=== PATIENT | female | born 1970 | race Hispanic/Latino ===

== ENCOUNTER 2018-03-09 09:35 | Day surgery (SDC) | payer OTHER, SELFPAY ==
[2018-03-07 12:09] VITALS: BMI 30.4
[2018-03-09] VITALS (9 sets, daily range): BP systolic 97–130; BP diastolic 35–78; PULSE 66–84; RESP 11–16; TEMP 36.2–36.7; O2SAT 98–100; BMI 30.4
[2018-03-09] MEDS: LACTATED RINGERS 1,000 ML 42 ML IV ×2 (10:38→12:20)
[2018-03-09] MEDS: SCOPOLAMINE 1 PATCH TOP ×2 (10:53→10:54)
[2018-03-09] MEDS: APREPITANT 40 MG CAPSULE PO (10:54)
[2018-03-09] MEDS: CEFAZOLIN 2 GM/100 ML FROZ.PIGGY IV (11:19)
--- NOTE | 2018-03-09 11:20 | P.HP_ITS ---
History of Present Illness Date Patient Seen: 03/09/18 Time Patient Seen: 11:17 Chief complaint: repair LIH incisional hernia [id number] Narrative: Liliana is a micah 47-year-old lady who presents for repair of 2 hernias. I last saw her in May of this past year. She had just had a cholecystectomy because she was having significant epigastric pain. She has now healed from that. She also has a left inguinal hernia and has developed what we think is a hernia at 1 of the port site from her cholecystectomy. She is here today to have those things repaired. She says her left inguinal hernia has gotten progressively more symptomatic over the past 8 or 9 months. She was scheduled to have it repaired September but had to delay repair due to other commitments. Today, she denies any upper respiratory symptoms, she denies nausea or vomiting, she denies any fever. Patient History Medical History Back pain (Acute) Esophagitis (Acute) GERD (gastroesophageal reflux disease) (Acute) Left inguinal hernia (Acute) Overweight (Acute) Postmenopausal (Acute) Urinary incontinence (Acute) Surgical History H/O: (Acute) Status post laparoscopic cholecystectomy (~11/2015) Family & Social History Family History: Reviewed 03/09/18 by Tia Conde MD Social History: household members none Tobacco & Substance use: Smoking Status Never smoker alcohol intake never Substance Use Type does not use Meds Home Medications Medication Instructions Recorded Confirmed Type [MULTIVITAMIN PACKET] PO QDAY #0 05/19/17 06/30/17 History Allergies Allergy/AdvReac Type Severity Reaction Status Date / Time No Known Drug Allergies Allergy Verified 03/09/18 09:56 Review of Systems Review of Systems All systems reviewed & are unremarkable except as noted in HPI and below Exam Vital Signs (past 8 hours): - 03/09/18 09:57 Temperature 97.1 F L Pulse Rate 81 Respiratory Rate 16 Blood Pressure 122/76 Pulse Oximetry 99 Oxygen Delivery Method Room Air Narrative Exam Narrative: Wonderful 47-year-old lady in no obvious distress she is accompanied by her daughter HEENT: Normocephalic and atraumatic, pupils equal round reactive to light accommodation with anicteric sclera. Lungs: Clear to auscultation bilaterally Heart: Regular rate and rhythm Abdomen: Soft, well-healed surgical abdominal incisions. She is tender to palpation in the right upper quadrant trocar incision though I cannot palpate a specific mass in the supine position. In the standing position she has a small mass at the more medial trocar site in the right upper quadrant. She also has a small and spontaneously reducing left inguinal hernia that is easily detected with Valsalva. No other abdominal masses or lesions. She does have a well- healed Pfannenstiel incision as well. Extremities: Warm and well perfused and without edema Assessment & Plan Plan: Assessment/Plan Narrative: Wonderful 47-year-old lady with an incisional hernia at 1 of her trocar sites and a left inguinal hernia that is been there for couple of years and is becoming more symptomatic. We discussed the risks and benefits of repair both these hernias and Liliana has expressed a desire to proceed.
--- NOTE | 2018-03-09 11:35 | SUR.OPER ---
Supine on padded OR bed, head on pillow, arms secured on padded arm boards at <90 degrees abduction, legs uncrossed, safety belt at thigh, tape over blanket over lower legs.
[2018-03-09] MEDS: ACETAMINOPHEN IV 1,000 MG/100 ML VIAL 400 MG IV (11:40)
[2018-03-09] MEDS: BUPIVACAINE 0.5% (PF) VIAL 30 ML INJ (11:43)
[2018-03-09] MEDS: LIDOCAINE 1% W/EPI INJ 20 ML INJ (11:45)
[2018-03-09] MEDS: CEFAZOLIN 1 GM VIAL IV (11:59)
--- NOTE | 2018-03-09 12:20 | PM.OP.1 ---
Operative Date/Time/Diagnoses Date of procedure: 03/09/18 Time of procedure: 12:20 Pre-op diagnosis: Left inguinal hernia Right abdominal incisional hernia Post-op diagnosis: same Procedure & Clinicians Procedure: Left inguinal hernia repair and right abdominal incisional hernia repair Same procedure as scheduled: Yes Indications: Painful enlarging hernias Surgeon: Tia Conde Click Yes if Unassisted: Yes Anesthesia Type: General (Dr. Noonan) Operative Notes Findings: 1. 1/2 to 1 cm opening in the right upper quadrant port site. Palpation of the internal abdominal wall does not reveal any other defects 2. Moderate-sized indirect left inguinal hernia. Closure Type: primary Specimen(s): none sent Implants & Drains: Medium Pro Loop mesh implant Estimated Blood Loss (mL): 5 Procedure in detail: After obtaining informed consent, the patient brought to the operating room and placed in the supine position on the operating table. Following successful induction of general endotracheal anesthesia, appropriate padding of all bony prominences, and placement of appropriate monitors, the abdomen is prepped and draped in standard surgical fashion. A time-out was held per [facility]COAP protocol. We began our procedure by addressing the right upper quadrant incisional hernia. Following infiltration with local anesthetic to create a field block, the existing incision was repeated and extended medially and laterally. This was carried down to the fascia. We identified a 1/2 to 1 cm fascial opening through which extended a small amount of preperitoneal fat. Single index finger was placed through this opening into the abdominal cavity and the abdominal cavity was palpated. No other defects were appreciated. We specifically palpated beneath the other trocar sites. The hernia was then addressed with interrupted 0 Vicryl suture. It was closed directly with interrupted stitches. We now turned our attention to the left inguinal hernia. We started with a left ilioinguinal nerve block. This was completed by infiltrating a mixture of local anesthetic just medial to the anterior superior iliac spine on the left. Once this was done. We identified a convenient site for an incision in the left lower quadrant located between the anterior superior iliac spine and pubic tubercle. This was also injected with local anesthetic. The incision was then created and carried down through the skin and subcutaneous tissue. The fascia of the external oblique aponeurosis was identified. The fascia was then opened in the direction of its fibers and retracted laterally. We identified the round ligament and the ilioinguinal nerve. The ilioinguinal nerve was carefully preserved. The round ligament was divided. We identified a moderate-sized indirect inguinal hernia. No direct component was identified. We dressed the hernia using a medium Pro Loop mesh implant. The plug was dipped in Ancef containing solution and deployed into the defect. This was sewn to the transversalis fascia and the oblique muscle with interrupted 0 Vicryl sutures using air knots. The wound was then irrigated. The patch portion of the plug and Patch combination was then placed in the inguinal canal. It was sewn to the pubic tubercle medially and laterally tucked beneath the external oblique aponeurosis. The wound was checked for hemostasis. The external oblique aponeurosis was closed with interrupted Vicryl sutures and the at the abdominal incision was closed in layers. It was dressed with Dermabond. All sponge, needle, and instrument counts were correct at the conclusion of the case. The patient allowed wake from anesthesia without difficulty and taken to the postanesthesia care unit in good condition. Condition: stable Disposition: PACU Plan for aftercare: 1. Discharge to home 2. Follow up with me in 2 weeks
--- NOTE | 2018-03-09 12:38 | SUR.PHASEI ---
REPORT GIVEN TO LO DELATORRE AND TRANSFERED CARE OF PT TO NANDINI BLANCHARD AT THIS TIME. PT IN STABLE CONDITION, VSS. LAYING IN BED WITH EYES CLOSED, EASILY AROUSABLE TO VOICE.
--- NOTE | 2018-03-09 12:56 | SUR.PHASEI ---
Reported off to Mode BLANCHARD, whom will now assume care for this pt.
--- NOTE | 2018-03-09 13:02 | SUR.PHASEI ---
Assumed care. VS stable. 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 Pt reported her pain was ok.
[2018-03-09] MEDS: ONDANSETRON 4 MG/2 ML INJ IV (13:44)
== END 2018-03-09 14:17 | disposition home or self-care (01) ==
PROVIDERS: PCP Physician Assistant; Visit Provider Surgery
PROC: (CPT 49560; principal; 2018-03-09 11:15)
PROC: (CPT 49560; 2018-03-09 11:15)
DX: K40.90 Unilateral inguinal hernia, without obstruction or gangrene, not specified as recurrent (principal); K43.2 Incisional hernia without obstruction or gangrene
CPT/HCPCS: 49560; 49505; C1781; J0131; J0690; J1100; J1885; J2250; J2405; J2704; J3010; J8501

== ENCOUNTER 2018-05-17 12:20 | Emergency (ER) | payer OTHER, SELFPAY ==
[2018-05-17 12:26] VITALS: BP 132/82; PULSE 90; RESP 15; TEMP 36.8; O2SAT 100; BMI 29.2
--- NOTE | 2018-05-17 12:53 | ED.DIZZY ---
HPI - Dizziness <Sinai Diaz PA-C - Last Filed: 05/17/18 18:49> General Chief Complaint: Dizziness Stated Complaint: DIZZY DOUBLE VISION PAIN BACK OF HEAD Time Seen by Provider: 05/17/18 12:30 Source: patient Mode of arrival: ambulatory Limitations: no limitations History of Present Illness HPI Narrative: This 47-year-old female complains of onset of dizziness, which she describes as a spinning sensation, this morning when she went to get out of bed. This has persisted throughout the day, worse with movement. She states that she also has posterior head pressure. She states that she does have a history of headache and migraine but these tend to occur more around her menstrual cycle. She states that she felt like she had some double vision in both eyes especially earlier when she got up and felt dizzy. She thinks that could be correlated. She states that she does have some nausea, but did drink her smoothie as usual this morning. She denies pain in her neck itself. She denies any fever. She denies any recent upper respiratory or sinus symptoms. No recent travel. She states that she did get some nausea medicine at the walk in clinic which has helped somewhat. She has not had vomiting Related Data Home Medications Medication Instructions Recorded Confirmed [MULTIVITAMIN PACKET] PO QDAY #0 05/19/17 05/17/18 Allergies Allergy/AdvReac Type Severity Reaction Status Date / Time No Known Drug Allergies Allergy Verified 05/17/18 12:26 Review of Systems <Sinai Diaz PA-C - Last Filed: 05/17/18 18:49> Review of Systems ROS Unobtainable: All systems reviewed & are unremarkable except as noted in HPI and below PFSH <Sinai Diaz PA-C - Last Filed: 05/17/18 18:49> Medical History Back pain (Acute) Esophagitis (Acute) GERD (gastroesophageal reflux disease) (Acute) Left inguinal hernia (Acute) Overweight (Acute) Postmenopausal (Acute) Urinary incontinence (Acute) Surgical History H/O: (Acute) Status post laparoscopic cholecystectomy (~11/2015) Social History details: unknown number of children: 3 household members: children education level: college occupational status: employed seatbelt use: always Smoking Status: Never smoker alcohol intake: never substance use type: does not use Type(s) of exercise: other and yoga frequency: 3-4 times per week duration: > 90 minutes/day Social History details: unknown number of children: 3 household members: children education level: college occupational status: employed seatbelt use: always Smoking Status: Never smoker alcohol intake: never substance use type: does not use Type(s) of exercise: other and yoga frequency: 3-4 times per week duration: > 90 minutes/day Exam <Sinai Diaz PA-C - Last Filed: 05/17/18 18:49> Narrative Exam Narrative: GENERAL APPEARANCE: Patient sitting comfortably, appears well HEENT: PERRL, EOMI, normal TMs and oropharynx, no sinus TTP. No nystagmus NECK: Supple, no masses LUNGS: Clear to auscultation bilaterally. HEART: Rate and rhythm regular without murmur, normal S1 and S2, no S3 or S4. ABDOMEN: Soft, NT, ND, NEUROLOGIC: Alert and oriented, normal speech, and coordination. Vertigo elicited with Hallpike maneuver, more with head turn to right side MUSCULOSKELETAL: Full Csp AROM without tenderness, no tenderness over the C-spine or cervical musculature EXTREMITIES: No calf tenderness no edema Initial Vital Signs Initial Vital Signs: Vital Signs Temperature 98.3 F 05/17/18 12:26 Pulse Rate 90 05/17/18 12:26 Respiratory Rate 15 05/17/18 12:26 Blood Pressure 132/82 05/17/18 12:26 Pulse Oximetry 100 05/17/18 12:26 <Cachorro Vitale DO - Last Filed: 05/17/18 20:03> Initial Vital Signs Initial Vital Signs: Vital Signs Temperature 98.3 F 05/17/18 12:26 Pulse Rate 90 05/17/18 12:26 Respiratory Rate 15 05/17/18 12:26 Blood Pressure 132/82 05/17/18 12:26 Pulse Oximetry 100 05/17/18 12:26 Course <Sinai Diaz PA-C - Last Filed: 05/17/18 18:49> Additional Information: Patient has clear positional vertigo and is feeling significantly improved after meclizine. No acute neurologic abnormality. She related that double vision seemed to occur with the vertigo but none on exam today. Her nausea appear to be associated with the vertigo as she seemed to have more response to meclizine than she did to Zofran. She will continue the meclizine as needed, will follow up with her PCP this week. She was tolerating saltines and water without problems prior to discharge, agreed to return if any acutely worsening symptoms Orders Ordered: Discontinued Medications Ketorolac Tromethamine (Toradol) 60 mg IM NOW ONE Stop: 05/17/18 13:17 Last Admin: 05/17/18 13:32 Dose: 60 mg Meclizine HCl (Antivert) 25 mg PO NOW ONE Stop: 05/17/18 13:17 Last Admin: 05/17/18 13:33 Dose: 25 mg Vital Signs - 8 hr 05/17/18 12:26 05/17/18 14:36 Temperature 98.3 F Pulse Rate 90 79 Respiratory Rate 15 16 Blood Pressure 132/82 Blood Pressure [Left Arm] 119/80 Pulse Oximetry 100 99 <Cachorro Vitale DO - Last Filed: 05/17/18 20:03> Orders Ordered: Discontinued Medications Ketorolac Tromethamine (Toradol) 60 mg IM NOW ONE Stop: 05/17/18 13:17 Last Admin: 05/17/18 13:32 Dose: 60 mg Meclizine HCl (Antivert) 25 mg PO NOW ONE Stop: 05/17/18 13:17 Last Admin: 05/17/18 13:33 Dose: 25 mg Vital Signs - 8 hr 05/17/18 12:26 05/17/18 14:36 Temperature 98.3 F Pulse Rate 90 79 Respiratory Rate 15 16 Blood Pressure 132/82 Blood Pressure [Left Arm] 119/80 Pulse Oximetry 100 99 MDM - Dizziness <Sinai Diaz PA-C - Last Filed: 05/17/18 18:49> Lab Data Point of Care Testing Test Results Negative Urine Dip Bedside Urine Glucose Negative Bedside Urine Bilirubin - Negative Bedside Urine Ketone - Negative Urine Specific [place] 1.015 Bedside Urine Occult Blood - Negative Bedside Urine pH 6.0 Bedside Urine Protein - Negative Bedside Urine Urobilinogen - Negative Bedside Urine Nitrite - Negative Bedside Urine Leukocytes - Negative Esterase <Cachorro Vitale DO - Last Filed: 05/17/18 20:03> Lab Data Point of Care Testing Test Results Negative Urine Dip Bedside Urine Glucose Negative Bedside Urine Bilirubin - Negative Bedside Urine Ketone - Negative Urine Specific [place] 1.015 Bedside Urine Occult Blood - Negative Bedside Urine pH 6.0 Bedside Urine Protein - Negative Bedside Urine Urobilinogen - Negative Bedside Urine Nitrite - Negative Bedside Urine Leukocytes - Negative Esterase Discharge Plan Departure Patient Disposition: Home Clinical Impression: Benign paroxysmal positional vertigo Qualifiers: Laterality: unspecified laterality Qualified Code(s): H81.10 - Benign paroxysmal vertigo, unspecified ear Headache Qualifiers: Headache type: unspecified Headache chronicity pattern: acute headache Intractability: not intractable Qualified Code(s): R51 - Headache Discharge Date/Time: 05/17/18 15:02 Interventions: ED Discharge Assessment Last Done: 05/17/18 15:01 Instructions: DI for Vertigo Activity Restrictions/Additional Instructions: Please return as we talked about if you have acutely worsening symptoms again. Otherwise, please follow-up with your PCP in a couple of days to see whether you are improving as expected or whether you may need further testing or treatment, such as physical therapy. Please hot die picker some [id number] meclizine and you can take 1-2 tablets every 6 hr as needed for the dizziness/vertigo along with your nausea. Remember that this can make you sleepy and you should not drive while taking this or until your vertigo is better. Please continue drinking plenty of clear fluids and eat a little bit of bland food every hour or 2 to help with your nausea. Since your headache is better now, I suspect it was related to this the vertigo and not having much fluid or food in your system. You can take [id number] ibuprofen or Aleve for that if you needed. Prescriptions: No Action [MULTIVITAMIN PACKET] PO QDAY Qty: 0 RF: 0 Referrals: Shannan Varma PA-C [Primary Care Provider] - Stand Alone Forms: Work Release Note <Cachorro Vitale DO - Last Filed: 05/17/18 20:03> Cosign ED Attending Noris Attestation: I was immediately available in the department for consultation. Documentation has been reviewed. I agree with assessment and plan.
[2018-05-17] MEDS: KETOROLAC 60 MG/2 ML VIAL IM (13:32)
[2018-05-17] MEDS: MECLIZINE HCL 12.5 MG TABLET 25 MG PO (13:33)
[2018-05-17 14:36] VITALS: BP 119/80; PULSE 79; RESP 16; O2SAT 99
== END 2018-05-17 15:02 | disposition home or self-care (01) ==
PROVIDERS: Emergency Provider Internal Medicine; PCP Physician Assistant
DX: H81.10 Benign paroxysmal vertigo, unspecified ear (principal); R51 Headache
CPT/HCPCS: 81003; 81025; 99283; 99284; J1885

== ENCOUNTER 2018-08-21 09:32 | Emergency (ER) | payer OTHER, SELFPAY ==
[2018-08-21 09:37] VITALS: BP 124/65; PULSE 65; RESP 14; TEMP 37; O2SAT 100; BMI 29.3
--- NOTE | 2018-08-21 09:49 | PC.NURSE ---
pt has swelling of face,around eyes and erythema on face/neck. Pt swallowing without difficulty and is not in resp distres
[2018-08-21] MEDS: diphenhydrAMINE 25 MG TABLET PO (11:00)
[2018-08-21] MEDS: predniSONE 20 MG TABLET 60 MG PO (11:00)
[2018-08-21 11:14] VITALS: BP 110/85; PULSE 64; RESP 15; O2SAT 100
--- NOTE | 2018-08-21 11:20 | ED.ALLEREA ---
HPI - Allergic Reaction General Chief complaint: Allergic Reaction Stated complaint: Face swollen Time Seen by Provider: 08/21/18 09:57 Source: patient Mode of arrival: ambulatory Limitations: no limitations History of Present Illness HPI narrative: Patient is sent to the emergency department from urgent care after presenting with facial swelling and burning this morning. Patient states that she noticed it around 6:37 a.m. when she woke up from sleep. She states she ate shrimp last night and used a vitamin E oil on her face before bed, but both of these things are not unusual for her and she has never had a reaction before. Patient denies any symptoms anywhere else on her body. No rash. No itching. No throat or tongue swelling. No difficulty swallowing or breathing. Patient states that she is otherwise healthy. No new soaps lotions or medications. No other suspect foods. The patient states she bought some Benadryl at the store, but did not take it. No other complaints at this time. The patient states her symptoms have not gotten better or worse over the course of the day. Related Data Home Medications Medication Instructions Recorded Confirmed [MULTIVITAMIN PACKET] PO QDAY #0 05/19/17 05/19/18 Previous Rx's Medication Instructions Recorded prednisone 60 mg PO DAILY #9 tab 08/21/18 Allergies Allergy/AdvReac Type Severity Reaction Status Date / Time No Known Drug Allergies Allergy Verified 08/21/18 09:37 Review of Systems Constitutional Denies chills, Denies fever(s), Denies lethargy and Denies weakness Eyes Denies change in vision, Denies eye discharge, Denies irritation and Denies loss of vision ENT Ears, Nose, Mouth, and Throat: Denies change in voice, Denies neck pain and Denies sore throat Comments: Facial swelling Cardiovascular Denies chest pain, Denies irregular heart rhythm, Denies lightheadedness, Denies palpitations, Denies dyspnea, Denies dyspnea on exertion and Denies orthopnea Respiratory Denies cough, Denies dyspnea, Denies dyspnea on exertion and Denies wheezing Gastrointestinal Gastrointestinal: Denies abdominal pain, Denies change in bowel habits, Denies diarrhea, Denies nausea and Denies vomiting Genitourinary Denies hematuria, Denies flank pain, Denies urinary incontinence and Denies urinary urgency Musculoskeletal Denies neck pain Integumentary/Breasts Denies pruritus, Denies erythema, Denies rash and Denies wounds Neurologic Denies confusion, Denies loss of vision and Denies weakness Psychiatric Denies anxiety, Denies confusion, Denies depression, Denies homicidal ideation and Denies suicidal ideation Endocrine Denies palpitations Hematologic/Lymphatic Denies easy bruising Allergic/Immunologic Denies wheezing [facility] Medical History Back pain (Acute) Esophagitis (Acute) GERD (gastroesophageal reflux disease) (Acute) Left inguinal hernia (Acute) Overweight (Acute) Postmenopausal (Acute) Urinary incontinence (Acute) Surgical History H/O: (Acute) Status post laparoscopic cholecystectomy (~11/2015) Social History details: unknown number of children: 3 household members: children education level: college occupational status: employed seatbelt use: always Smoking Status: Never smoker alcohol intake: never substance use type: does not use Type(s) of exercise: other and yoga frequency: 3-4 times per week duration: > 90 minutes/day Social History details: unknown number of children: 3 household members: children education level: college occupational status: employed seatbelt use: always Smoking Status: Never smoker alcohol intake: never substance use type: does not use Type(s) of exercise: other and yoga frequency: 3-4 times per week duration: > 90 minutes/day Exam Narrative Exam Narrative: Patient has mild facial edema which is symmetrically distributed. Initial Vital Signs Initial Vital Signs: Vital Signs Temperature 98.6 F 08/21/18 09:37 Pulse Rate 65 08/21/18 09:37 Respiratory Rate 14 08/21/18 09:37 Blood Pressure 124/65 08/21/18 09:37 Pulse Oximetry 100 08/21/18 09:37 Const General: cooperative and well developed Nutritional Appearance: well nourished Orientation: alert, awake, oriented x3 and not confused HENMT Head: normocephalic and atraumatic Ears: external ears normal Nose: external nose normal and No nasal discharge Face and sinus: sinuses nontender, face symmetric, no sinus tenderness and No dry mucous membranes Mouth: oral mucosae normal and moist mucous membranes Teeth and gingiva: dentition normal Throat: tonsils normal and uvula midline Eyes General: appearance normal, both eyes and all related structures Eyelids: eyelids normal Conjunctivae: conjunctivae normal Sclera: sclerae normal Pupils: PERRL EOM: EOM intact bilaterally Neck Neck: normal visual inspection, trachea midline, No lymphadenopathy, No midline deformity and No JVD Lymphatic: No lymphedema Chest Chest: normal inspection of the chest Resp Effort & Inspection: normal respiratory effort, able to speak in complete sentences, no respiratory distress and no use of accessory muscles Auscultation: clear to auscultation bilaterally, no rales, no rhonchi and no wheezes Cardio Rate: regular rate Rhythm: regular rhythm Heart Sounds: no click, no gallops, no murmurs and no rubs Pulses: normal peripheral pulses GI Inspection: non-distended Palpation: soft, no hepatosplenomegaly, No guarding, No pulsatile mass and No tender Auscultation: normal bowel sounds Back/Spine/Pelvis Back: No CVA tenderness Cervical Spine: cervical ROM normal and No pain with cervical ROM Thoracic/Lumbar Spine: thoracic and lumbar spine normal to inspection Skin General: no rashes or lesions noted, No jaundice and No petechiae Neuro General: alert, oriented x3, gait normal and no focal motor deficits Speech: speech normal Extrem General: full ROM, no clubbing, cyanosis or edema, no pedal edema and no calf tenderness Psych Appearance: well kempt Mental Status: mental status grossly normal Attitude: cooperative Thought Content: normal and suicidality Judgment: judgment good Course Course Narrative: Patient had no evidence of airway compromise or impending airway compromise. She was treated with Benadryl and prednisone in the emergency department. We have discussed home management of the symptoms, as well as avoidance of potential triggers. We have also discussed that the patient may keep a journal of circumstances and exposures surrounding her reaction so that if this ever happens again, she may begin to look for patterns and identify what may have caused this. We have discussed that if the patient begins to feel tightness or swelling in her throat, that she should return to the emergency department immediately. Orders Ordered: Discontinued Medications Diphenhydramine HCl (Benadryl) 25 mg PO NOW ONE Stop: 08/21/18 10:54 Last Admin: 08/21/18 11:00 Dose: 25 mg Prednisone (Deltasone) 60 mg PO NOW ONE Stop: 08/21/18 10:54 Last Admin: 08/21/18 11:00 Dose: 60 mg Vital Signs - 8 hr 08/21/18 09:37 08/21/18 11:14 Temperature 98.6 F Pulse Rate 65 64 Respiratory Rate 14 15 Blood Pressure 124/65 Blood Pressure [Left Arm] 110/85 Pulse Oximetry 100 100 MDM - Allergic Reaction Medical Records Attestation: I reviewed the patient's medical records. Discharge Plan Departure Patient Disposition: Home Clinical Impression: Allergic reaction Qualifiers: Encounter type: initial encounter Qualified Code(s): T78.40XA - Allergy, unspecified, initial encounter Discharge Date/Time: 08/21/18 11:22 Instructions: DI for General Allergic Reactions Activity Restrictions/Additional Instructions: It is not clear at this time you have reacted to. Please keep a mental or written note of what you are exposed to and the circumstances surrounding this reaction, and if it happens again, you will be able to potentially identify what is causing the reaction, by looking for patterns. You may take Benadryl 25-50 mg every 6 hours, as needed for allergic reaction, until the symptoms resolve. Please also take the prednisone, as prescribed, as needed for the reaction. Your prescription has been sent to [facility] in [place]. Prescriptions: New prednisone 20 mg tablet 60 mg PO DAILY Qty: 9 RF: 0 No Action [MULTIVITAMIN PACKET] PO QDAY Qty: 0 RF: 0 Referrals: Shannan Varma PA-C [Primary Care Provider] -
== END 2018-08-21 11:22 | disposition home or self-care (01) ==
PROVIDERS: Emergency Provider Emergency Medicine; PCP Physician Assistant
DX: T78.40XA Allergy, unspecified, initial encounter (principal)
CPT/HCPCS: 99282; 99283

== ENCOUNTER → 2019-01-24 12:02 | Outpatient (CLI) | payer OTHER, SELFPAY ==
[2019-01-24 12:36] LABS: Add Manual Diff / Slide Review NO; Basophils Absolute Auto 100 /uL (0-100); Eosinophils Absolute Auto 100 /uL (0-450); Eosinophils Percent Auto 1.2 % (2-4); Hematocrit 35.3 % (36-46); Hemoglobin 11.6 g/dL (12.0-16.0); Lymphocytes Absolute Auto 2300 /uL (1100-4500); Lymphocytes Percent Auto 34.5 % (25-40); Mean Corpuscular Hemoglobin 26.9 PG (26-34); Mean Corpuscular Volume 81.4 fL (80-100); Monocytes Absolute Auto 500 /uL (0-900); Monocytes Percent Auto 7.7 % (3-14); Neutrophils Absolute Auto 3800 /uL (1500-7000); Neutrophils Percent Auto 55.6 % (50-75); Platelet Count 212 X10^3/uL (150-400); Red Blood Cell Count 4.33 X10^6/uL (4.0-5.2); Red Cell Distribution Width 15.2 % (11.6-14.8); White Blood Cell Count 6.8 X10^3/uL (4.5-11.0)
[2019-01-24 14:20] LABS: HEMOLYSIS < 15 (0-50); Iron 31 ug/dL (37-170)
[2019-01-24 14:22] LABS: Alanine Aminotransferase 6 IU/L (<35); Albumin 4.1 g/dL (3.5-5.0); Albumin Globulin Ratio 1.5 (1.0-2.8); Alkaline Phosphatase 71 U/L (38-126); Aspartate Aminotransferase 21 IU/L (14-36); BUN Creatinine Ratio 24.3 (6-22); Bilirubin Total 0.5 mg/dL (0.2-1.3); Blood Urea Nitrogen 17 mg/dL (7-17); Calcium 9.1 mg/dL (8.4-10.2); Carbon Dioxide 21 mmol/L (22-32); Chloride 109 mmol/L (98-107); Cholesterol 190 mg/dL (140-199); Estimated Glomerular Filt Rate > 60.0 mL/min (>60); Globulin 2.8 g/dL (1.7-4.1); Glucose 104 mg/dL (70-100); HDL Cholesterol 60 mg/dL (40-60); HEMOLYSIS < 15 (0-50); LDL Cholesterol Calculated 113 mg/dL (<100); Potassium 4.2 mmol/L (3.4-5.1); Sodium 139 mmol/L (137-145); Total Protein 6.9 g/dL (6.3-8.2); Triglycerides 83 mg/dL (35-150)
[2019-01-24 14:31] LABS: Percent Iron Saturation 8 % (15-50); Total Iron Binding Capacity 406 ug/dL (265-497); Transferrin 333 mg/dL (206-381)
[2019-01-24 14:56] LABS: Ferritin 5.2 ng/mL (6.27-137)
[2019-01-24 15:10] LABS: Vitamin B12 610 pg/mL (239-931)
== END ==
PROVIDERS: PCP Physician Assistant; Visit Provider Physician Assistant
DX: Z13.220 Encounter for screening for lipoid disorders (principal); Z13.6 Encounter for screening for cardiovascular disorders; D50.9 Iron deficiency anemia, unspecified; R00.0 Tachycardia, unspecified; R51 Headache; R53.83 Other fatigue
CPT/HCPCS: 36415; 80053; 80061; 82607; 82728; 83540; 83550; 84443; 85025

== ENCOUNTER → 2019-08-18 08:33 | Outpatient (CLI) | payer OTHER, SELFPAY ==
[2019-08-18 10:18] LABS: Hemoglobin 12.5 g/dL (12.0-16.0)
[2019-08-18 11:03] LABS: HEMOLYSIS < 15 (0-50); Iron 85 ug/dL (37-170)
[2019-08-18 11:15] LABS: Percent Iron Saturation 20 % (15-50); Total Iron Binding Capacity 419 ug/dL (265-497); Transferrin 327 mg/dL (206-381)
[2019-08-18 11:32] LABS: Ferritin 6 ng/mL (6-137)
== END ==
PROVIDERS: PCP Physician Assistant; Referring Provider Physician Assistant; Visit Provider Physician Assistant
DX: D50.9 Iron deficiency anemia, unspecified (principal)
CPT/HCPCS: 36415; 82728; 83540; 83550; 85014; 85018

== ENCOUNTER → 2019-10-09 09:33 | Outpatient (CLI) | payer OTHER, SELFPAY ==
--- NOTE | 2019-10-09 09:36 | DI.RAD.S_ITS ---
PROCEDURE: XR CHEST 2V INDICATIONS: recent sob symptom TECHNIQUE: 2 views of the chest were acquired. COMPARISON: None. FINDINGS: Surgical changes and devices: None. Lungs and pleura: A presumed 6 mm high density calcified granuloma projecting in the left upper lobe. Long-term stability could be confirmed with follow-up chest radiographs if clinically required. No pleural effusions or pneumothorax. Mediastinum: Mediastinal contours are normal. Heart size is normal. Bones and chest wall: No suspicious bony abnormalities. Soft tissues appear unremarkable. IMPRESSION: No acute disease Dictated by: Tylor Merida M.D. on 10/09/2019 at 11:25 Approved by: Tylor Merida M.D. on 10/09/2019 at 11:30
[2019-10-09 10:49] LABS: Cholesterol 207 mg/dL (140-199); HDL Cholesterol 67 mg/dL (40-60); LDL Cholesterol Calculated 123 mg/dL (<100); Triglycerides 85 mg/dL (35-150)
== END ==
PROVIDERS: PCP Registered Nurse; Referring Provider Registered Nurse; Visit Provider Registered Nurse
DX: E78.5 Hyperlipidemia, unspecified (principal); R06.02 Shortness of breath
CPT/HCPCS: 36415; 71046; 80061

== ENCOUNTER → 2019-10-26 10:02 | Outpatient (CLI) | payer OTHER, SELFPAY ==
[2019-10-26 10:52] LABS: Alanine Aminotransferase 9 IU/L (<35); Albumin 4.1 g/dL (3.5-5.0); Albumin Globulin Ratio 1.4 (1.0-2.8); Alkaline Phosphatase 67 U/L (38-126); Aspartate Aminotransferase 22 IU/L (14-36); BUN Creatinine Ratio 16.7 (6-22); Bilirubin Total 0.6 mg/dL (0.2-1.3); Blood Urea Nitrogen 11 mg/dL (7-17); Calcium 8.9 mg/dL (8.4-10.2); Carbon Dioxide 22 mmol/L (22-32); Chloride 107 mmol/L (98-107); Estimated Glomerular Filt Rate > 60.0 mL/min (>60); Glucose 98 mg/dL (70-100); HEMOLYSIS < 15 (0-50); Potassium 4.5 mmol/L (3.4-5.1); Sodium 137 mmol/L (137-145); Total Protein 7.1 g/dL (6.3-8.2)
== END ==
PROVIDERS: PCP Registered Nurse; Referring Provider Registered Nurse; Visit Provider Registered Nurse
DX: E66.3 Overweight (principal); E78.5 Hyperlipidemia, unspecified
CPT/HCPCS: 36415; 80053

== ENCOUNTER → 2019-10-27 15:32 | Outpatient (CLI) | payer OTHER, SELFPAY ==
[2019-10-28 15:09] LABS: COVID19 Sendout Not Detected (Not Detected)
== END ==
PROVIDERS: PCP Registered Nurse; Visit Provider Physician Assistant
DX: R05 Cough (principal)
CPT/HCPCS: 87635

== ENCOUNTER → 2019-11-05 14:33 | Outpatient (CLI) | payer OTHER, SELFPAY ==
[2019-11-10 13:50] LABS: COVID19 Sendout NOT DETECTED
== END ==
PROVIDERS: PCP Registered Nurse; Visit Provider Physician Assistant
DX: J02.9 Acute pharyngitis, unspecified (principal); R05 Cough
CPT/HCPCS: 87635

== ENCOUNTER → 2019-11-10 17:15 | Outpatient (CLI) | payer OTHER, SELFPAY ==
--- NOTE | 2019-11-10 17:19 | DI.RAD.S_ITS ---
PROCEDURE: XR CHEST 2V INDICATIONS: cough TECHNIQUE: 2 views of the chest were acquired. COMPARISON: [facility], CR, XR CHEST 2V, 10/09/2019, 9:03. FINDINGS: Surgical changes and devices: None. Lungs and pleura: Calcified rounded granuloma at the left lung apex. Lungs are otherwise clear. No pleural effusions or pneumothorax. Mediastinum: Mediastinal contours are normal. Heart size is normal. Bones and chest wall: No suspicious bony abnormalities. Soft tissues appear unremarkable. IMPRESSION: 1. No acute cardiopulmonary disease. 2. Chronic left upper lobe granuloma. Dictated by: Raegan Waite M.D. on 11/10/2019 at 22:35 Approved by: Raegan Waite M.D. on 11/10/2019 at 22:36
== END ==
PROVIDERS: PCP Registered Nurse; Referring Provider Registered Nurse; Visit Provider Registered Nurse
DX: R05 Cough (principal); J84.10 Pulmonary fibrosis, unspecified
CPT/HCPCS: 71046

== ENCOUNTER → 2020-09-13 16:10 | Outpatient (CLI) | payer OTHER, SELFPAY ==
--- NOTE | 2020-09-13 16:11 | DI.MRI.S_ITS ---
PROCEDURE: MR ELBOW LT W CON INDICATIONS: left elbow pain TECHNIQUE: Noncontrast coronal proton density fast spin echo and T2 fast spin echo with fat saturation, axial and sagittal T1 spin echo and T2 fast spin echo with fat saturation through the elbow. COMPARISON: None. FINDINGS: Image quality: Excellent. Lateral structures: The lateral ulnar collateral ligament and radial collateral ligament both appear intact. There is low-grade partial intrasubstance tearing of the common extensor tendon at the origin superimposed on mild tendinosis. Medial structures: The ulnar collateral ligament appears intact. The overlying common flexor tendon appears normal. The ulnar nerve appears mildly increased in signal intensity but normal in thickness, which is nonspecific and can be seen in asymptomatic individuals. A small accessory anconeus epitrochlearis is seen without significant compression of the ulnar nerve. Anterior structures: The biceps and brachialis tendons both appear intact as they insert onto the proximal radius and ulna, respectively. No bicipitoradial bursal fluid. The median and radial neurovascular bundles appear normal; no focal muscle atrophy to suggest nerve impingement. Posterior structures: The conjoint triceps tendon from the long and lateral heads appears intact. The medial head of the triceps tendon also appears normal, with direct muscle insertion onto the olecranon. No olecranon bursal fluid. Subcutaneous soft tissue thickening is seen over the olecranon. Bone and cartilage: No bone marrow contusions or fractures. No osteochondral injuries. IMPRESSION: Low-grade partial intrasubstance tearing of the common extensor tendon at the origin superimposed on mild tendinosis. Dictated by: Daren Gamboa M.D. on 09/13/2020 at 17:07 Approved by: Daren Gamboa M.D. on 09/13/2020 at 17:13
== END ==
PROVIDERS: PCP Registered Nurse; Referring Provider Registered Nurse; Visit Provider Registered Nurse
DX: M25.522 Pain in left elbow (principal); S56.512A Strain of other extensor muscle, fascia and tendon at forearm level, left arm, initial encounter
CPT/HCPCS: 73221

== ENCOUNTER → 2020-10-24 10:53 | Outpatient (CLI) | payer OTHER, SELFPAY ==
--- NOTE | 2020-10-24 | DI.MG.S_ITS ---
BILATERAL DIGITAL SCREENING MAMMOGRAM 3D/2D WITH CAD: 10/24/2020 CLINICAL: Routine screening. Family history of breast cancer. Comparison is made to exams dated: 04/02/2017 mammogram, 11/08/2015 ultrasound, and 11/08/2015 mammogram - [facility]. There are scattered fibroglandular elements in both breasts. Current study was also evaluated with a Computer Aided Detection (CAD) system. No significant masses, calcifications, or other findings are seen in either breast. There has been no significant interval change. IMPRESSION: NEGATIVE There is no mammographic evidence of malignancy. A 1 year screening mammogram is recommended. This exam was interpreted at Station ID: [id number]. NOTE: For mammograms, a report in lay terms will be sent to the patient. Approximately 15% of breast malignancies will not be visualized mammographically. In the management of a palpable breast mass, a negative mammogram must not discourage biopsy of a clinically suspicious lesion. Electronically Signed By: Dread miranda/ida:10/29/2020 16:59:00 letter sent: Normal Exam ACR BI-RADS Category 1: Negative 3341F
[2020-10-24 12:11] LABS: Add Manual Diff / Slide Review NO; Basophils Absolute Auto 100 /uL (0-100); Basophils Percent Auto 1.1 % (0-2); Eosinophils Absolute Auto 100 /uL (0-450); Eosinophils Percent Auto 1.5 % (2-4); Hematocrit 41.7 % (36-46); Hemoglobin 13.7 g/dL (12.0-16.0); Lymphocytes Absolute Auto 2700 /uL (1100-4500); Lymphocytes Percent Auto 36.7 % (25-40); Mean Corpuscular HGB Conc 32.8 % (30-36); Mean Corpuscular Hemoglobin 29.5 PG (26-34); Mean Corpuscular Volume 90.1 fL (80-100); Monocytes Absolute Auto 500 /uL (0-900); Monocytes Percent Auto 6.9 % (3-14); Neutrophils Absolute Auto 3900 /uL (1500-7000); Neutrophils Percent Auto 53.8 % (50-75); Platelet Count 246 X10^3/uL (150-400); Red Blood Cell Count 4.63 X10^6/uL (4.0-5.2); Red Cell Distribution Width 13.4 % (11.6-14.8); White Blood Cell Count 7.3 X10^3/uL (4.5-11.0)
[2020-10-24 13:22] LABS: Alanine Aminotransferase 9 IU/L (<35); Albumin 4.2 g/dL (3.5-5.0); Albumin Globulin Ratio 1.4 (1.0-2.8); Alkaline Phosphatase 77 U/L (38-126); Aspartate Aminotransferase 25 IU/L (14-36); BUN Creatinine Ratio 17.2 (6-22); Bilirubin Total 0.6 mg/dL (0.2-1.3); Blood Urea Nitrogen 11 mg/dL (7-17); Calcium 9.4 mg/dL (8.4-10.2); Carbon Dioxide 21 mmol/L (22-32); Chloride 108 mmol/L (98-107); Cholesterol 206 mg/dL (140-199); Estimated Glomerular Filt Rate > 60.0 mL/min (>60); Globulin 2.9 g/dL (1.7-4.1); Glucose 98 mg/dL (70-100); HDL Cholesterol 61 mg/dL (40-60); HEMOLYSIS < 15 (0-50); LDL Cholesterol Calculated 119 mg/dL (<100); Potassium 4.4 mmol/L (3.4-5.1); Sodium 138 mmol/L (137-145); Total Protein 7.1 g/dL (6.3-8.2); Triglycerides 130 mg/dL (35-150)
== END ==
PROVIDERS: PCP Registered Nurse; Referring Provider Registered Nurse; Visit Provider Registered Nurse
DX: Z12.31 Encounter for screening mammogram for malignant neoplasm of breast (principal); Z80.3 Family history of malignant neoplasm of breast; D50.9 Iron deficiency anemia, unspecified; R53.83 Other fatigue; E78.5 Hyperlipidemia, unspecified
CPT/HCPCS: 36415; 77063; 77067; 80053; 80061; 85025

== ENCOUNTER → 2020-10-28 13:26 | Outpatient (CLI) | payer OTHER, SELFPAY ==
[2020-10-28 14:16] LABS: COVID19 -Nasal RAPID Negative (Negative)
== END ==
PROVIDERS: PCP Registered Nurse; Visit Provider Physician Assistant
DX: Z20.822 Contact with and (suspected) exposure to COVID-19 (principal)
CPT/HCPCS: 87635

== ENCOUNTER → 2021-01-06 11:58 | Outpatient (CLI) | payer OTHER, SELFPAY ==
[2021-01-06 15:43] LABS: COVID19 -Nasal RAPID Negative (Negative)
== END ==
PROVIDERS: PCP Registered Nurse; Visit Provider Physician Assistant
DX: Z20.822 Contact with and (suspected) exposure to COVID-19 (principal)
CPT/HCPCS: 87635

== ENCOUNTER → 2022-03-07 10:05 | Outpatient (CLI) | payer OTHER, SELFPAY ==
--- NOTE | 2022-03-07 | DI.MG.S_ITS ---
BILATERAL DIGITAL SCREENING MAMMOGRAM 3D/2D WITH CAD: 03/07/2022 CLINICAL: Routine screening. Family history of breast cancer. Comparison is made to exams dated: 10/24/2020 mammogram, 04/02/2017 mammogram, 11/08/2015 ultrasound, and 11/08/2015 mammogram - [facility]. There are scattered areas of fibroglandular density in both breasts (category b / 25%-50% glandular tissue). Current study was also evaluated with a Computer Aided Detection (CAD) system. No significant masses, calcifications, or other findings are seen in either breast. There has been no significant interval change. IMPRESSION: NEGATIVE There is no mammographic evidence of malignancy. A 1 year screening mammogram is recommended. Based on the Tyrer Cuzick model (a risk assessment model) the patient's lifetime risk is 9.1% and her 10 year risk is 2.1%. According to the ACR, ACS, and NCCN guidelines, an annual breast MRI exam along with mammogram is recommended if the patient's lifetime risk is 20% or greater. This exam was interpreted at Station ID: [id number]. NOTE: For mammograms, a report in lay terms will be sent to the patient. Approximately 15% of breast malignancies will not be visualized mammographically. In the management of a palpable breast mass, a negative mammogram must not discourage biopsy of a clinically suspicious lesion. Electronically Signed By: Kulwant ayala/ida:03/09/2022 08:17:46 letter sent: Normal Exam ACR BI-RADS Category 1: Negative 3341F
== END ==
PROVIDERS: Referring Provider Physician Assistant; Visit Provider Physician Assistant
DX: Z12.31 Encounter for screening mammogram for malignant neoplasm of breast (principal); Z80.3 Family history of malignant neoplasm of breast
CPT/HCPCS: 77063; 77067

== ENCOUNTER → 2022-05-18 12:34 | Outpatient (CLI) | payer OTHER, SELFPAY ==
[2022-05-18 14:37] LABS: Urine Chlamydia NOT DETECTED; Urine N gonorrhoeae NOT DETECTED
== END ==
PROVIDERS: Visit Provider Physician Assistant
DX: N89.8 Other specified noninflammatory disorders of vagina (principal); Z11.3 Encounter for screening for infections with a predominantly sexual mode of transmission
CPT/HCPCS: 87210; 87491; 87591

== ENCOUNTER → 2022-11-25 08:08 | Outpatient (CLI) | payer OTHER, SELFPAY ==
[2022-11-25 08:48] LABS: Add Manual Diff / Slide Review NO; Basophils Absolute Auto 100 /uL (0-100); Basophils Percent Auto 1.1 % (0-2); Eosinophils Absolute Auto 100 /uL (0-450); Eosinophils Percent Auto 2.4 % (2-4); Hematocrit 37.4 % (36-46); Hemoglobin 12.6 g/dL (12.0-16.0); Lymphocytes Absolute Auto 1800 /uL (1100-4500); Lymphocytes Percent Auto 31.3 % (25-40); Mean Corpuscular HGB Conc 33.8 % (30-36); Mean Corpuscular Hemoglobin 30.6 PG (26-34); Mean Corpuscular Volume 90.6 fL (80-100); Monocytes Absolute Auto 400 /uL (0-900); Monocytes Percent Auto 6.7 % (3-14); Neutrophils Absolute Auto 3400 /uL (1500-7000); Neutrophils Percent Auto 58.5 % (50-75); Platelet Count 200 X10^3/uL (150-400); Red Blood Cell Count 4.13 X10^6/uL (4.0-5.2); White Blood Cell Count 5.8 X10^3/uL (4.5-11.0)
[2022-11-25 09:05] LABS: Alanine Aminotransferase 11 IU/L (<35); Albumin 3.8 g/dL (3.5-5.0); Albumin Globulin Ratio 1.3 (1.0-2.8); Alkaline Phosphatase 63 U/L (38-126); Aspartate Aminotransferase 21 IU/L (14-36); BUN Creatinine Ratio 20.6 (6-22); Bilirubin Total 0.6 mg/dL (0.2-1.3); Blood Urea Nitrogen 13 mg/dL (7-17); Calcium 8.4 mg/dL (8.4-10.2); Carbon Dioxide 25 mmol/L (22-32); Chloride 106 mmol/L (98-107); Cholesterol 195 mg/dL (140-199); Estimated Glomerular Filt Rate > 60 mL/min (>60); Globulin 2.9 g/dL (1.7-4.1); Glucose 95 mg/dL (70-100); HDL Cholesterol 46 mg/dL (40-60); HEMOLYSIS < 15 (0-50); LDL Cholesterol Calculated 122 mg/dL (<100); Lipase 125 U/L (23-300); Potassium 3.9 mmol/L (3.4-5.1); Sodium 138 mmol/L (137-145); Total Protein 6.7 g/dL (6.3-8.2); Triglycerides 134 mg/dL (35-150)
[2022-11-25 09:37] LABS: TSH w/ Reflex to FT4 1.09 uIU/mL (0.47-4.68)
[2022-11-25 10:01] LABS: Hemoglobin A1C% w Est Avg Glu 5.3 % (4.0-6.0)
== END ==
PROVIDERS: PCP Family Medicine; Referring Provider Family Medicine; Visit Provider Family Medicine
DX: Z00.00 Encounter for general adult medical examination without abnormal findings (principal); R10.11 Right upper quadrant pain; R23.2 Flushing
CPT/HCPCS: 36415; 80053; 80061; 83036; 83690; 84443; 85025

== ENCOUNTER → 2022-12-04 10:11 | Outpatient (CLI) | payer OTHER, SELFPAY ==
--- NOTE | 2022-12-04 10:11 | DI.US.S_ITS ---
PROCEDURE: US ABDOMEN COMPLETE INDICATIONS: PERSISTENT RIGHT UPPER QUADRANT PAIN TECHNIQUE: Real-time scanning was performed of the abdominal and retroperitoneal organs, with image documentation. COMPARISON: [facility], CT, ABDOMEN/PELVIS WITH CONTRAST, 12/23/2015, 9:31. [facility], US, ABDOMEN LIMITED, 12/23/2015, 7:59. FINDINGS: Liver: Liver is normal in size and homogeneous in echotexture. The main portal vein demonstrates normal size and demonstrates normal appearing, hepatopetal flow. Gallbladder: Removed. Biliary ducts: Intrahepatic bile ducts are non-dilated. Extrahepatic bile duct caliber measures 7 mm. Normal is 6-7 mm or less in diameter, or 10 mm or less post-cholecystectomy. Pancreas: Visualized portions of the pancreas are sonographically normal. Portions of the pancreas are obscured, however. Spleen: Spleen is normal in size and homogeneous in echotexture. Kidneys: Kidneys are normal in size and echotexture. Right kidney measures 9 point cm long; left kidney measures 10 cm long. No hydronephrosis or nephrolithiasis. No solid masses. Aorta: Visualized aorta is normal in caliber at less than 3 cm. Iliacs: Proximal common iliac arteries are normal in caliber at less than 2.5 cm. IVC: Intrahepatic inferior vena cava is patent. Miscellaneous: No free abdominal fluid. IMPRESSION: Status post cholecystectomy, without biliary dilatation. No focal liver abnormality is seen. Dictated by: Tesfaye Guajardo M.D. on 12/04/2022 at 12:48 Approved by: Tesfaye Guajardo M.D. on 12/04/2022 at 12:49
== END ==
PROVIDERS: PCP Family Medicine; Referring Provider Family Medicine; Visit Provider Family Medicine
DX: R10.11 Right upper quadrant pain (principal); Z90.49 Acquired absence of other specified parts of digestive tract
CPT/HCPCS: 76700

== ENCOUNTER → 2023-03-19 15:08 | Outpatient (CLI) | payer OTHER, SELFPAY ==
--- NOTE | 2023-03-19 | DI.MG.S_ITS ---
BILATERAL DIGITAL SCREENING MAMMOGRAM 3D/2D WITH CAD: 03/19/2023 CLINICAL: Routine screening. Family history of breast cancer. Comparison is made to exams dated: 03/07/2022 mammogram, 10/24/2020 mammogram, and 04/02/2017 mammogram - [facility]. There are scattered areas of fibroglandular density in both breasts (category b / 25%-50% glandular tissue). Current study was also evaluated with a Computer Aided Detection (CAD) system. No significant masses, calcifications, or other findings are seen in either breast. There has been no significant interval change. IMPRESSION: NEGATIVE There is no mammographic evidence of malignancy. A 1 year screening mammogram is recommended. Based on the Tyrer Cuzick model (a risk assessment model) the patient's lifetime risk is 9.1% and her 10 year risk is 2.2%. According to the ACR, ACS, and NCCN guidelines, an annual breast MRI exam along with mammogram is recommended if the patient's lifetime risk is 20% or greater. This exam was interpreted at Station ID: [id number]. NOTE: For mammograms, a report in lay terms will be sent to the patient. Approximately 15% of breast malignancies will not be visualized mammographically. In the management of a palpable breast mass, a negative mammogram must not discourage biopsy of a clinically suspicious lesion. Electronically Signed By: Dread miranda/ida:03/19/2023 18:19:22 letter sent: Normal Exam ACR BI-RADS Category 1: Negative 3341F
== END ==
PROVIDERS: PCP Family Medicine; Referring Provider Family Medicine; Visit Provider Family Medicine
DX: Z12.31 Encounter for screening mammogram for malignant neoplasm of breast (principal); Z80.3 Family history of malignant neoplasm of breast; R92.323 Mammographic fibroglandular density, bilateral breasts
CPT/HCPCS: 77063; 77067

== ENCOUNTER → 2023-07-08 11:27 | Outpatient (CLI) | payer OTHER, SELFPAY ==
[2023-07-08 12:36] LABS: Influenza A - CEPHEID Flu A NEGATIVE (NEGATIVE); Influenza B - CEPHEID Flu B NEGATIVE (NEGATIVE); Respiratory Syncytial Virus Negative (Negative)
[2023-07-08 12:58] LABS: COVID-19 CEPHEID 4-PLEX PCR Negative (Negative)
== END ==
PROVIDERS: PCP Family Medicine; Visit Provider Physician Assistant
DX: Z20.828 Contact with and (suspected) exposure to other viral communicable diseases (principal)
CPT/HCPCS: 0241U

== ENCOUNTER → 2023-07-08 11:37 | Outpatient (CLI) | payer OTHER, SELFPAY ==
[2023-07-08 12:03] LABS: Add Manual Diff / Slide Review NO; Basophils Absolute Auto 100 /uL (0-100); Basophils Percent Auto 1.3 % (0-2); Eosinophils Absolute Auto 100 /uL (0-450); Eosinophils Percent Auto 1.9 % (2-4); Hematocrit 39.2 % (36-46); Lymphocytes Absolute Auto 2400 /uL (1100-4500); Lymphocytes Percent Auto 32.1 % (25-40); Mean Corpuscular HGB Conc 33.2 % (30-36); Mean Corpuscular Hemoglobin 30.4 PG (26-34); Mean Corpuscular Volume 91.6 fL (80-100); Monocytes Absolute Auto 500 /uL (0-900); Monocytes Percent Auto 7.1 % (3-14); Neutrophils Absolute Auto 4200 /uL (1500-7000); Neutrophils Percent Auto 57.6 % (50-75); Platelet Count 226 X10^3/uL (150-400); Red Blood Cell Count 4.29 X10^6/uL (4.0-5.2); Red Cell Distribution Width 13.1 % (11.6-14.8); White Blood Cell Count 7.4 X10^3/uL (4.5-11.0)
[2023-07-08 12:22] LABS: Alanine Aminotransferase 9 IU/L (<35); Albumin 4.2 g/dL (3.5-5.0); Albumin Globulin Ratio 1.4 (1.0-2.8); Alkaline Phosphatase 70 U/L (38-126); Aspartate Aminotransferase 21 IU/L (14-36); BUN Creatinine Ratio 25.8 (6-22); Bilirubin Total 0.5 mg/dL (0.2-1.3); Blood Urea Nitrogen 16 mg/dL (7-17); Calcium 8.9 mg/dL (8.4-10.2); Carbon Dioxide 21 mmol/L (22-32); Chloride 110 mmol/L (98-107); Estimated Glomerular Filt Rate > 60 mL/min (>60); Glucose 91 mg/dL (70-100); HEMOLYSIS < 15 (0-50); Potassium 4.2 mmol/L (3.4-5.1); Sodium 140 mmol/L (137-145); Total Protein 7.2 g/dL (6.3-8.2)
[2023-07-08 12:52] LABS: TSH w/ Reflex to FT4 0.62 uIU/mL (0.47-4.68)
== END ==
PROVIDERS: PCP Family Medicine; Referring Provider Physician Assistant; Visit Provider Physician Assistant
DX: M54.2 Cervicalgia (principal); Z20.828 Contact with and (suspected) exposure to other viral communicable diseases
CPT/HCPCS: 0241U; 36415; 80053; 84443; 85025

== ENCOUNTER 2023-07-15 12:07 | Day surgery (SDC) | payer OTHER, SELFPAY ==
[2023-07-15 12:29] VITALS: BP 118/80; PULSE 74; RESP 16; TEMP 36.2; O2SAT 99
[2023-07-15] MEDS: LACTATED RINGERS 1,000 ML 100 ML IV (12:39)
--- NOTE | 2023-07-15 12:41 | PM.HP.1 ---
History of Present Illness History of Present Illness Date Patient Seen: 07/15/23 Time Patient Seen: 12:42 Chief complaint: [facility] Narrative: Billie is a 52-year-old woman who is here for her first colonoscopy. She has no known family history of colon cancer. [facility] Medical History (Updated 07/15/23 @ 12:42 by Darnell Amin MD) Esophagitis Back pain Postmenopausal Urinary incontinence GERD (gastroesophageal reflux disease) Left inguinal hernia Overweight Surgical History H/O: Status post laparoscopic cholecystectomy (~11/2015) Social History details: unknown number of children: 3 household members: children education level: college occupational status: employed seatbelt use: always Smoking Status: Never smoker alcohol intake: never substance use type: does not use Type(s) of exercise: other and yoga frequency: 3-4 times per week duration: > 90 minutes/day Meds Home Medications and Allergies Home Medications Medication Instructions Recorded Confirmed Type [MULTIVITAMIN PACKET] PO QDAY ##0 05/19/17 07/08/23 History methocarbamol 500 mg tablet 500 mg PO BEDTIME PRN muscle spasm 01/25/19 07/08/23 Rx #30 tabs polysaccharide iron complex 150 mg 150 mg PO DAILY #90 caps 06/28/19 07/08/23 Rx iron capsule (Ferrex) cetirizine 10 mg tablet (Zyrtec) 10 mg PO DAILY #30 tabs 11/10/19 07/15/23 Rx fluticasone propionate 50 1 spray intranasal BID PRN allergy 11/10/19 07/15/23 Rx mcg/actuation nasal symptoms #47.4 mL spray,suspension (Flonase Allergy Relief) ondansetron 4 mg disintegrating 4 mg PO Q6-8H PRN nausea and 10/28/20 07/08/23 Rx tablet vomiting #14 tabs cyclobenzaprine 10 mg tablet 10 mg PO TID PRN muscle spasm #10 07/08/23 07/15/23 Rx tabs Allergies Allergy/AdvReac Type Severity Reaction Status Date / Time atorvastatin [From Lipitor] Allergy Intermediate Headaches Verified 07/15/23 12:24 Exam Vital Signs (past 8 hours): - 07/15/23 12:29 Temperature 97.2 F L Pulse Rate 74 Respiratory Rate 16 Blood Pressure 118/80 Pulse Oximetry 99 Oxygen Delivery Method Room Air Oxygen Delivery Method Room Air Const General: No acute distress Resp Effort & Inspection: normal respiratory effort Assessment & Plan Assessment and plan (1) Colon cancer screening: Status: Acute Plan We reviewed the risks and benefits of colonoscopy for colon cancer screening and she would like proceed.
--- NOTE | 2023-07-15 13:07 | PM.OP.COLON ---
Operative Date/Time/Diagnoses Date of procedure: 07/15/23 Time of procedure: 13:07 Pre-op diagnosis: Colon cancer screening Post-op diagnosis: same Procedure & Clinicians Study performed: Colonoscopy Same procedure as scheduled: Yes Surgeon: Darnell Amin Procedure Notes Procedure in detail: Surgeon: Dranell Amin MD Anesthesia: Fam Melgar MD Procedure: The patient was brought to the endoscopy suite, placed in left lateral decubitus position. The patient was connected to monitoring devices. A time-out was performed. Sedation was administered. Once the patient was adequately sedated, a digital rectal exam was performed and was normal. The scope was then inserted and advanced to the cecum where the appendiceal orifice was identified and photographed. The scope was then slowly withdrawn over greater than 6 minutes. The mucosa was thoroughly inspected. No abnormalities were identified. The scope was retroflexed in the rectum. No abnormalities were seen. The scope was straightened and removed. The patient was awakened and brought to recovery. Scope withdrawal time: 7 minutes Sedation time: 11 minutes EBL: 0 Findings: Normal colon Post-procedure Recommendations: Colonoscopy in 10 years Disposition: PACU
[2023-07-15 13:11] VITALS: BP 95/53; PULSE 75; RESP 16; TEMP 36.2; O2SAT 98
[2023-07-15 13:15] VITALS: BP 99/57; PULSE 74; RESP 16; O2SAT 96
[2023-07-15 13:20] VITALS: BP 111/65; PULSE 76; RESP 16; O2SAT 97
== END 2023-07-15 13:39 | disposition home or self-care (01) ==
PROVIDERS: PCP Family Medicine; Referring Provider Surgery; Visit Provider Surgery
PROC: 0DJD8ZZ Inspection of Lower Intestinal Tract, Via Natural or Artificial Opening Endoscopic (ICD-10-PCS; CPT 45378; principal; 2023-07-15 13:15)
DX: Z12.11 Encounter for screening for malignant neoplasm of colon (principal)
CPT/HCPCS: 45378; J2704

== ENCOUNTER → 2023-08-16 09:39 | Outpatient (CLI) | payer OTHER, SELFPAY ==
[2023-08-16 10:27] LABS: Hemoglobin A1C% w Est Avg Glu 5.3 % (4.0-6.0)
[2023-08-16 10:39] LABS: Add Manual Diff / Slide Review NO; Alanine Aminotransferase 10 IU/L (<35); Albumin Globulin Ratio 1.4 (1.0-2.8); Alkaline Phosphatase 83 U/L (38-126); Aspartate Aminotransferase 22 IU/L (14-36); BUN Creatinine Ratio 21.2 (6-22); Basophils Absolute Auto 100 /uL (0-100); Bilirubin Total 0.6 mg/dL (0.2-1.3); Blood Urea Nitrogen 14 mg/dL (7-17); Carbon Dioxide 22 mmol/L (22-32); Chloride 109 mmol/L (98-107); Cholesterol 213 mg/dL (140-199); Eosinophils Absolute Auto 100 /uL (0-450); Eosinophils Percent Auto 2.2 % (2-4); Estimated Glomerular Filt Rate > 60 mL/min (>60); Globulin 2.9 g/dL (1.7-4.1); Glucose 103 mg/dL (70-100); HDL Cholesterol 60 mg/dL (40-60); HEMOLYSIS < 15 (0-50); Hematocrit 40.7 % (36-46); Hemoglobin 13.8 g/dL (12.0-16.0); LDL Cholesterol Calculated 111 mg/dL (<100); Lymphocytes Absolute Auto 1800 /uL (1100-4500); Lymphocytes Percent Auto 31.9 % (25-40); Mean Corpuscular HGB Conc 33.8 % (30-36); Mean Corpuscular Hemoglobin 30.7 PG (26-34); Mean Corpuscular Volume 90.7 fL (80-100); Monocytes Absolute Auto 500 /uL (0-900); Monocytes Percent Auto 8.5 % (3-14); Neutrophils Absolute Auto 3300 /uL (1500-7000); Neutrophils Percent Auto 56.4 % (50-75); Platelet Count 191 X10^3/uL (150-400); Potassium 4.2 mmol/L (3.4-5.1); Red Blood Cell Count 4.49 X10^6/uL (4.0-5.2); Red Cell Distribution Width 12.9 % (11.6-14.8); Sodium 137 mmol/L (137-145); Total Protein 6.9 g/dL (6.3-8.2); Triglycerides 210 mg/dL (35-150); White Blood Cell Count 5.8 X10^3/uL (4.5-11.0)
[2023-08-16 11:11] LABS: TSH w/ Reflex to FT4 0.96 uIU/mL (0.47-4.68)
== END ==
PROVIDERS: PCP Student in an Organized Health Care Education/Training Program; Referring Provider Student in an Organized Health Care Education/Training Program; Visit Provider Student in an Organized Health Care Education/Training Program
DX: Z13.29 Encounter for screening for other suspected endocrine disorder (principal); E78.5 Hyperlipidemia, unspecified; E66.3 Overweight
CPT/HCPCS: 36415; 80053; 80061; 83036; 84443; 85025

== ENCOUNTER → 2023-11-12 09:42 | Outpatient (CLI) | payer OTHER, SELFPAY ==
--- NOTE | 2023-11-12 09:45 | DI.RAD.S_ITS ---
PROCEDURE: XR CERVICAL SPINE 2V OR 3V INDICATIONS: work injury involving cervical strain TECHNIQUE: 3 view(s) of the cervical spine were acquired. COMPARISON: None. FINDINGS: Bones: Straightening of normal cervical lordosis. No fracture or dislocation. Mild degenerative endplate changes are noted at C5-6 and C6-7 levels. The lateral masses of C1 appear intact on the odontoid view. No suspicious bony lesions. Soft tissues: No prevertebral soft tissue swelling. IMPRESSION: Mild degenerative disc disease at C5-6 and C6-7 levels. No cervical spine fracture or dislocation. Dictated by: Ozzie Palma M.D. on 11/12/2023 at 13:22 Approved by: Ozzie Palma M.D. on 11/12/2023 at 13:33
== END ==
PROVIDERS: PCP Student in an Organized Health Care Education/Training Program; Referring Provider Nurse Practitioner Family; Visit Provider Nurse Practitioner Family
DX: S16.1XXA Strain of muscle, fascia and tendon at neck level, initial encounter (principal); M50.322 Other cervical disc degeneration at C5-C6 level; X58.XXXA Exposure to other specified factors, initial encounter
CPT/HCPCS: 72040

== ENCOUNTER 2024-02-08 14:30 | Outpatient (RCR) | payer OTHER, SELFPAY ==
--- NOTE | 2023-12-27 12:35 | PT.OIE ---
Current Diagnoses Stiffness of other specified joint, not elsewhere classified (12/27/23) Cervicalgia (12/27/23) Weakness (12/27/23) Strain of muscle, fascia and tendon at neck level, subsequent encounter (12/27/23) Past Medical History (Last Updated 08/13/23 @ 14:59 by Julieth Mckeon MA) Back pain Esophagitis GERD (gastroesophageal reflux disease) Left inguinal hernia Overweight Postmenopausal Urinary incontinence Past Surgical History (Last Updated 08/13/23 @ 15:00 by Julieth Mckeon MA) H/O: Status post laparoscopic cholecystectomy (~11/2015) [place] teeth removed (07/19/07) Visit Care Team Role Provider Type Zayra Schultz MD Attending Provider Physician Family Provider Primary Care Provider Referring Provider Specialty: Family Practice Obstetrics Address: [address] [place] [address], [facility] Email: [email or web address] Physical Therapy Initial Evaluation PT-OP-A Visit Information Start: 12/27/23 08:01 Freq: Status: Active Protocol: Document 12/27/23 09:45 NM (Rec: 12/27/23 11:13 NM [id number]) Out-Patient Physical Therapy Visit Information Visit Information Visit Type Initial Evaluation Visit Note 12 visits approved initially Visit Start Time 09:47 Visit Stop Time 10:35 Visit Number 03/12 Evaluation Information Evaluation Date 12/27/23 Precautions Precautions hx headaches PT-OP-B Current Condition Start: 12/27/23 08:01 Freq: Status: Active Protocol: Document 12/27/23 09:45 NM (Rec: 12/27/23 11:13 NM [id number]) Current Condition History of Current Condition Onset Date October 2023 Current Complaints pain, limited mobility History of Current Condition Pt presents with neck pain after lifting a heavy printer. DAVID occurred in either in October or beginning of November. She lifted the printer from a low shelf, reports hard to get into space and around the printer. She reports that when she pulled the printer, she felt pain on the back of her neck. Reports not more 1 sided. She continued with her day, reports that the following Wednesday (2 days following injury), she felt pain when she woke up. States had difficulty with moving neck. 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 She reports that she has no other limitations for her job due to her neck, states only with sitting at computer, must travel to other offices for computers. She has a raised desk (sitting, standing), monitor at eye level. States that she used to have discomfort with going to other offices. She was on light duty for work; back on full duty at work. She reports that she has pain with B rotation, support with extension. Pt reports no numbness, tingling, burning into hands. She got an injection for pain (3-4 days post injury), which has helped. She reports no hx of She does states that she has a hx of use of muscle relaxers for muscle tension from before the injury, used only for stress. Not on medication to manage pain currently after 1st week but has been prescribed naproxen. She normally gets headaches from before injury but states not worse since injury. Prior Treatments and Tests Cervical spine x-ray 11/12/23 impression: Mild degenerative disc disease at C5-C6 levels and C6-C7 levels. No cervical spine fracture or dislocation Current Functional Impairments (Reported) Functional Limitations- Work/School driving, lifting, sleeping ( wakes at night)-has to remove pillow and lie straight on mattress states can sit for a couple of hours without moving before neck hurts (2 hours) PT-OP-C Subjective Start: 12/27/23 08:01 Freq: Status: Active Protocol: Document 12/27/23 09:45 NM (Rec: 12/27/23 11:13 NM [id number]) OP-PT Subjective Patient Comments Patient Comments Pt consents to participate in evaluation Patient Questionnaires Neck Disability Index NDI Score 40/100 (40% impaired) OP-PT Pain Assessment Location cervical spine Pain Location Details midline neck Intensity 3 Scale Used Numeric (0 - 10) Description Aching,Dull Description- Other worst: 10 Frequency Intermittent Radiating Location none Pain Aggravating Factors Position,Sitting,Lifting Pain Alleviating Factors Heat Other Pain Alleviating Factors support from hand PT-OP-E Functional Tests Start: 12/27/23 08:01 Freq: Status: Active Protocol: Document 12/27/23 09:45 NM (Rec: 12/27/23 11:13 NM [id number]) Functional Tests Other deep neck flexor endurance test Name of Test with cervical retraction and gentle lift Score 1 second Comment painful PT-OP-F Manual Assessment Start: 12/27/23 08:01 Freq: Status: Active Protocol: Document 12/27/23 09:45 NM (Rec: 12/27/23 11:13 NM [id number]) Manual Assessments Soft Tissue Assessment Soft Tissue Mobility Assessment Tightness of cervical paraspinals, periscapulars, SCM, trapezius, levator scapula Joint Mobility Assessment Joint Mobility Assessment Hypomobility of CT junction, cervical spine with PA springing of paraspinals. Normal cervical spine motion with lateral glides- improves pain symptoms Other Manual Assessments Other Manual Assessments Cranial nerves 2-12 intact B PT-OP-G Mobility & Gait Start: 12/27/23 08:01 Freq: Status: Active Protocol: Document 12/27/23 09:45 NM (Rec: 12/27/23 11:13 NM [id number]) OP Gait Assessment Gait Gait Assistance Required: Independent Distance (Feet) 150 Assistive Devices Assistive Device None Comments Gait Comments Decreased trunk mobility PT-OP-H Neuro Start: 12/27/23 08:01 Freq: Status: Active Protocol: Document 12/27/23 09:45 NM (Rec: 12/27/23 11:13 NM [id number]) Sensation Evaluation Comments Summary Comments Cranial nerve 5, BUE equally intact to light touch sensation PT-OP-J Posture/Palpation/Skin Start: 12/27/23 08:01 Freq: Status: Active Protocol: Document 12/27/23 09:45 NM (Rec: 12/27/23 11:13 NM [id number]) Posture Evaluation Position Standing Head/C-Spine Posture C-Spine Flattened T-Spine Posture Increased Kyphosis L-Spine Posture Increased Lordosis Shoulder Posture (L) Rounded,(R) Rounded,(L) Forward,(R) Forward Scapula Posture (L) Protracted,(R) Protracted, (L) Winged,(R) Winged Pelvis Posture Anteriorly Tilted Weight Distribution Balanced Palpation Assessment Location cervical spine Palpation Details No scapular or periscapular pain; tension and tightness of trapezius, levator scapula Mild tenderness to palpation from base of occiput along cervical spinous processes, no pain with palpation of transverse processes Reports less pain with gentle lateral glides Tightness along B SCM (L>R), cervical and thoracic paraspinals, suboccipitals PT-OP-K Range of Motion Start: 12/27/23 08:01 Freq: Status: Active Protocol: Document 12/27/23 09:45 NM (Rec: 12/27/23 11:13 NM [id number]) Cervical Spine Range of Motion Cervical Spine Active Degrees Flexion 50 Extension 50 Rotation Left 48 Rotation Right 50 Lateral Flexion Left 30 Lateral Flexion Right 30 ROM Limitations Soft Tissue Tightness,Pain Comments mild pain with flexion, moderate pain with lateral flexion and rotation B; normally has pain with ext but not today Shoulder Goniometric Range of Motion Shoulder Right Flexion 170 Abduction 170 External Rotation at 90 degrees 70 Abduction Comments No symptoms with UE motion Left Flexion 170 Abduction 170 External Rotation at 90 degrees 70 Abduction Comments No symptoms with UE motion PT-OP-L Special Tests Start: 12/27/23 08:01 Freq: Status: Active Protocol: Document 12/27/23 09:45 NM (Rec: 12/27/23 11:13 NM [id number]) Special Tests Cervical Spine Special Tests Vertebral Artery Comments intact cranial and peripheral nerve testing; no symptoms w/ positional test Passive Neck Flexion Test Results + pain Comments painful w/ added rotation Alar Ligament Test Results - Tranverse ligament Test Results - Distraction Test Results + Comments reports symptom relief Spurling's Test Test Results + Comments local w/ 3D, no change with compression PT-OP-M Strength Start: 12/27/23 08:01 Freq: Status: Active Protocol: Document 12/27/23 09:45 NM (Rec: 12/27/23 11:13 NM [id number]) Cervical Spine Strength Cervical Spine Manual Muscle Testing Flexion (C1-2) 4 Good Extension 4 Good Rotation Left 3+ Fair+ Rotation Right 3+ Fair+ Lateral Flexion Left (C3) 3+ Fair+ Lateral Flexion Right (C3) 3+ Fair+ Comments mild pain with resisted lateral flexion and rotation B , extension Shoulder Strength Shoulder Manual Muscle Testing Right Flexion 4 Good Abduction (C5) 4 Good External Rotation 4 Good Internal Rotation 4 Good Comments No pain with resisted testing Left Flexion 4 Good Abduction (C5) 4 Good External Rotation 4 Good Internal Rotation 4 Good Comments No pain with resisted testing Elbow/Forearm Strength Elbow and Forearm Manual Muscle Testing Right Flexion (C6) 4 Good Extension (C7) 4 Good Left Flexion (C6) 4 Good Extension (C7) 4 Good PT-OP-Q Treatments Start: 12/27/23 08:01 Freq: Status: Active Protocol: Document 12/27/23 09:45 NM (Rec: 12/27/23 11:13 NM [id number]) Therapeutic Exercises Supine Exercises cervical spine isometrics Supine Exercise Name HEP: 1. lateral flexion, 2. 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 Reports improvement in muscle tightness post manual treatment PT-OP-T Assessment and Plan Start: 12/27/23 08:01 Freq: Status: Active Protocol: Document 12/27/23 09:45 NM (Rec: 12/27/23 11:13 NM [id number]) Physical Therapy Assessment Rehab Potential Rehabilitation Potential Good Evaluation Complexity Number of Personal Factors/Comorbidities 1-2 Number of Body Systems Impaired 1-2 Clinical Presentation at Evaluation Stable Impairments Impairments Activity Tolerance,Functional Activities,Functional Mobility ,Gait,Integument,Pain,Posture, ROM,Soft Tissue Mobility, Strength,Transfers Other Concerns Age Related Concerns PMH: back pain, neck pain, vision problems, headache; surgical hx: 3 c-sections, 2 hernia fixes, gall bladder removal Barriers to Rehabilitation Pt has limitations with scheduling due to work schedule Goals Five Impairment pain due to lifting Short Term Goal (STG) Pt will be educated on body mechanics during lifting in order to reduce risk of re- injury STG Duration 8 weeks Longterm Goal (LTG) If appropriate, pt will be able to demonstrate good body mechanics while lifting resistance from ground level at least 5 times and report no pain with lifting at work LTG Duration 10 weeks Four Impairment pain with sleeping Short Term Goal (STG) Pt will be educated on sleeping ergonomics in order to improve symptom management and quality of life during sleeping STG Duration 3 weeks Longterm Goal (LTG) Pt will report waking due to neck pain fewer than 5/7 days of the week in order to demonstrate improved symptom management and quality of life LTG Duration 10 weeks Three Impairment pain and limitation with B cervical rotation Short Term Goal (STG) Pt will improve cervical spine AROM B to at least 60 deg in order to demonstrate increased AROM for visual scanning during driving and sitting at desk for work-related tasks STG Duration 7 weeks 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 (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) Pt will improve cervical spine AROM B to at least 70 deg in order to demonstrate increased AROM for visual scanning during driving and sitting at desk for work-related tasks LTG Duration 10 weeks Two Impairment pain and limitation with B cervical lateral flexion Short Term Goal (STG) Pt will improve B lateral flexion AROM to at least 35 deg in order to demonstrate increased AROM for visual scanning and better pain management during work tasks STG Duration 7 weeks 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 presenting with acute midline cervical spine pain following work- related injury when pt was lifting a heavy printer. Symptoms are consistent with cervical strain dx and imaging ; however, she likely also has mild disc pathology without radicular symptoms as well based on response to vertebral compression and distraction testing. Overall, pt's symptoms are improving since initial injury. She has had imaging revealing no fractures . Pain is worse with cervical lateral flexion and rotation B AROM and resisted muscle testing; however, pt has has intermittent pain with flexion and extension. She has limitations with ROM, strength , pain management, sleeping, activity tolerance, and with performing ADLs. Pt has mild joint hypomobility and soft tissue restrictions that also limit ROM, strength, and pain. Pt is no longer on light duty at work, but she continues to report limitations in ability to perform aspects of her job including lifting and sitting tolerance due to pain. PT educated pt on exam findings and plan of care. If pt's symptoms do not improve over 4 -6 weeks, then pt may benefit from more advanced imaging and assessment. Pt would benefit from skilled PT for progressive cervical spine flexibility and strengthening for stabilization in order to improve symptom management and ability to perform both household ADLs and job-related tasks. Physical Therapy Plan Frequency and Duration Frequency of Treatment 1-2x/wk Duration of treatment (weeks) 10 Plan of Care Start Date 12/27/23 Plan of Care End Date 03/10/24 Therapeutic Interventions Therapeutic Interventions Balance Training,Gait Training ,Home Exercise Program,Joint Mobilizations,Manual Therapy, Neuromuscular Re-education, Orthotic/Prosthetic Management ,Patient/Caregiver Education, Self-Care/Home Management, Sensory Integration,Soft Tissue Mobilization,Taping, Therapeutic Activities, Therapeutic Exercises Modalities Cold Pack/Ice Massage,Electric Stimulation,Hot Packs, Ultrasound Next Visit Focus/Plan Next Note Type Treatment Note Next Visit Plan vertebral a.: bp, ausc/palp review cervical spine isometrics; trial flex and extension preet into pillow or towel roll; can trial gentle cervical retract with trial open books, thoracic ext with hand support on sitting vs 1/2 foam roller; pec stretch and mobilization in standing (doorway) vs supine if genaro better Ergonomic and sleeping handouts Manual therapy
--- NOTE | 2023-12-29 15:59 | PT.OTN ---
Current Diagnoses Stiffness of other specified joint, not elsewhere classified (12/29/23) Cervicalgia (12/29/23) Weakness (12/29/23) Strain of muscle, fascia and tendon at neck level, subsequent encounter (12/29/23) Physical Therapy Treatment Note PT-OP-A Visit Information Start: 12/27/23 08:01 Freq: Status: Active Protocol: Document 12/29/23 10:44 NM (Rec: 12/29/23 11:34 NM [id number]) Out-Patient Physical Therapy Visit Information Visit Information Visit Type Treatment Note Visit Note 12 visits approved initially L arm: 123/80 mHg, 95 bpm, 100 sPo2 Visit Start Time 10:45 Visit Stop Time 11:30 Visit Number 04/12 Evaluation Information Evaluation Date 12/27/23 Precautions Precautions hx headaches PT-OP-B Current Condition Start: 12/27/23 08:01 Freq: Status: Active Protocol: Document 12/27/23 09:45 NM (Rec: 12/27/23 11:13 NM [id number]) Current Condition History of Current Condition Onset Date October 2023 Current Complaints pain, limited mobility History of Current Condition Pt presents with neck pain after lifting a heavy printer. DAVID occurred in either in October or beginning of November. She lifted the printer from a low shelf, reports hard to get into space and around the printer. She reports that when she pulled the printer, she felt pain on the back of her neck. Reports not more 1 sided. She continued with her day, reports that the following Wednesday (2 days following injury), she felt pain when she woke up. States had difficulty with moving neck. 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 She reports that she has no other limitations for her job due to her neck, states only with sitting at computer, must travel to other offices for computers. She has a raised desk (sitting, standing), monitor at eye level. States that she used to have discomfort with going to other offices. She was on light duty for work; back on full duty at work. She reports that she has pain with B rotation, support with extension. Pt reports no numbness, tingling, burning into hands. She got an injection for pain (3-4 days post injury), which has helped. She reports no hx of She does states that she has a hx of use of muscle relaxers for muscle tension from before the injury, used only for stress. Not on medication to manage pain currently after 1st week but has been prescribed naproxen. She normally gets headaches from before injury but states not worse since injury. Prior Treatments and Tests Cervical spine x-ray 11/12/23 impression: Mild degenerative disc disease at C5-C6 levels and C6-C7 levels. No cervical spine fracture or dislocation Current Functional Impairments (Reported) Functional Limitations- Work/School driving, lifting, sleeping ( wakes at night)-has to remove pillow and lie straight on mattress states can sit for a couple of hours without moving before neck hurts (2 hours) PT-OP-C Subjective Start: 12/27/23 08:01 Freq: Status: Active Protocol: Document 12/29/23 10:44 NM (Rec: 12/29/23 11:34 NM [id number]) OP-PT Subjective Patient Comments Patient Comments Pt reports sore after evaluation. Reports 05/08. States that she did not work yesterday due to headache, states headache started before evaluation, got worse. She still has a R sided headache. She states that R eye got blurry and vision black (no loss of consiousness) and headache really bad; states instantaneous sharp pain in her R side of head (frontal) and eye, states that she had to closer her eyes; thinks less than a minute to return to normal. PT-OP-E Functional Tests Start: 12/27/23 08:01 Freq: Status: Active Protocol: Document 12/27/23 09:45 NM (Rec: 12/27/23 11:13 NM [id number]) Functional Tests Other deep neck flexor endurance test Name of Test with cervical retraction and gentle lift Score 1 second Comment painful PT-OP-F Manual Assessment Start: 12/27/23 08:01 Freq: Status: Active Protocol: Document 12/27/23 09:45 NM (Rec: 12/27/23 11:13 NM [id number]) Manual Assessments Soft Tissue Assessment Soft Tissue Mobility Assessment Tightness of cervical paraspinals, periscapulars, SCM, trapezius, levator scapula Joint Mobility Assessment Joint Mobility Assessment Hypomobility of CT junction, cervical spine with PA springing of paraspinals. Normal cervical spine motion with lateral glides- improves pain symptoms Other Manual Assessments Other Manual Assessments Cranial nerves 2-12 intact B PT-OP-G Mobility & Gait Start: 12/27/23 08:01 Freq: Status: Active Protocol: Document 12/27/23 09:45 NM (Rec: 12/27/23 11:13 NM [id number]) OP Gait Assessment Gait Gait Assistance Required: Independent Distance (Feet) 150 Assistive Devices Assistive Device None Comments Gait Comments Decreased trunk mobility PT-OP-H Neuro Start: 12/27/23 08:01 Freq: Status: Active Protocol: Document 12/27/23 09:45 NM (Rec: 12/27/23 11:13 NM [id number]) Sensation Evaluation Comments Summary Comments Cranial nerve 5, BUE equally intact to light touch sensation PT-OP-J Posture/Palpation/Skin Start: 12/27/23 08:01 Freq: Status: Active Protocol: Document 12/27/23 09:45 NM (Rec: 12/27/23 11:13 NM [id number]) Posture Evaluation Position Standing Head/C-Spine Posture C-Spine Flattened T-Spine Posture Increased Kyphosis L-Spine Posture Increased Lordosis Shoulder Posture (L) Rounded,(R) Rounded,(L) Forward,(R) Forward Scapula Posture (L) Protracted,(R) Protracted, (L) Winged,(R) Winged Pelvis Posture Anteriorly Tilted Weight Distribution Balanced Palpation Assessment Location cervical spine Palpation Details No scapular or periscapular pain; tension and tightness of trapezius, levator scapula Mild tenderness to palpation from base of occiput along cervical spinous processes, no pain with palpation of transverse processes Reports less pain with gentle lateral glides Tightness along B SCM (L>R), cervical and thoracic paraspinals, suboccipitals PT-OP-K Range of Motion Start: 12/27/23 08:01 Freq: Status: Active Protocol: Document 12/27/23 09:45 NM (Rec: 12/27/23 11:13 NM [id number]) Cervical Spine Range of Motion Cervical Spine Active Degrees Flexion 50 Extension 50 Rotation Left 48 Rotation Right 50 Lateral Flexion Left 30 Lateral Flexion Right 30 ROM Limitations Soft Tissue Tightness,Pain Comments mild pain with flexion, moderate pain with lateral flexion and rotation B; normally has pain with ext but not today Shoulder Goniometric Range of Motion Shoulder Right Flexion 170 Abduction 170 External Rotation at 90 degrees 70 Abduction Comments No symptoms with UE motion Left Flexion 170 Abduction 170 External Rotation at 90 degrees 70 Abduction Comments No symptoms with UE motion PT-OP-L Special Tests Start: 12/27/23 08:01 Freq: Status: Active Protocol: Document 12/29/23 10:44 NM (Rec: 12/29/23 11:34 NM [id number]) Special Tests Cervical Spine Special Tests Vertebral Artery Test Results BP: 123/80 mmHg, Auscultation/ palpation @ carotid a. &heart WFL Comments intact cranial and peripheral nerve testing; no symptoms w/ positional test PT-OP-M Strength Start: 12/27/23 08:01 Freq: Status: Active Protocol: Document 12/27/23 09:45 NM (Rec: 12/27/23 11:13 NM [id number]) Cervical Spine Strength Cervical Spine Manual Muscle Testing Flexion (C1-2) 4 Good Extension 4 Good Rotation Left 3+ Fair+ Rotation Right 3+ Fair+ Lateral Flexion Left (C3) 3+ Fair+ Lateral Flexion Right (C3) 3+ Fair+ Comments mild pain with resisted lateral flexion and rotation B , extension Shoulder Strength Shoulder Manual Muscle Testing Right Flexion 4 Good Abduction (C5) 4 Good External Rotation 4 Good Internal Rotation 4 Good Comments No pain with resisted testing Left Flexion 4 Good Abduction (C5) 4 Good External Rotation 4 Good Internal Rotation 4 Good Comments No pain with resisted testing Elbow/Forearm Strength Elbow and Forearm Manual Muscle Testing Right Flexion (C6) 4 Good Extension (C7) 4 Good Left Flexion (C6) 4 Good Extension (C7) 4 Good PT-OP-Q Treatments Start: 12/27/23 08:01 Freq: Status: Active Protocol: Document 12/29/23 10:44 NM (Rec: 12/29/23 11:34 NM [id number]) Therapeutic Exercises Supine Exercises cervical spine isometrics Supine Exercise Name HEP: 1. lateral flexion, 2. rotation Side bilateral Equipment Used PT hand first, then head supported on folded towel Reps/Minutes 10x2 ea Comments L more challenging but reports better and less pain after Standing Exercises wall posture Standing Exercise Name gentle chin tuck w/ B ER and scapular retraction- HEP Side bilateral Reps/Minutes 15x5 Comments feels good pec stretch Standing Exercise Name stretch 90/90 doorway- HEP Side bilateral Reps/Minutes 60 ea Other Exercises self soft tissue mobilization Other Exercise Name standing at wall: rhomboids, LS- HEP Side right Equipment Used racquetball in pillow case Reps/Minutes 1 minute Manual Therapy Treatment Consent Patient gave verbal consent for manual Yes treatment Soft Tissue Mobilization cervical spine Body Location paraspinals, scalenes, UT, LS, post cuff, rhomboids, suboccipitals Mobilization Type Rolling,Strumming,Sustained Pressure Intensity/Depth Moderate Body Position sidelying,hooklying Comments B tightness. Trigger point at LS, lower cervical paraspinals R, suboccipitals. Reduced with mobilization but still palpable and present even after manual therapy. Monitored for pain. Educated on use of ball for self STM at home PT-OP-T Assessment and Plan Start: 12/27/23 08:01 Freq: Status: Active Protocol: Document 12/29/23 10:44 NM (Rec: 12/29/23 11:34 NM [id number]) Physical Therapy Assessment Goals Five Impairment pain due to lifting Short Term Goal (STG) Pt will be educated on body mechanics during lifting in order to reduce risk of re- injury STG Duration 8 weeks Correction Goal (LTG) If appropriate, pt will be able to demonstrate good body mechanics while lifting resistance from ground level at least 5 times and report no pain with lifting at work LTG Duration 10 weeks Four Impairment pain with sleeping Short Term Goal (STG) Pt will be educated on sleeping ergonomics in order to improve symptom management and quality of life during sleeping STG Duration 3 weeks Paperboard Boxes Estimator Goal (LTG) Pt will report waking due to neck pain fewer than 5/7 days of the week in order to demonstrate improved symptom management and quality of life LTG Duration 10 weeks Three Impairment pain and limitation with B cervical rotation Short Term Goal (STG) Pt will improve cervical spine AROM B to at least 60 deg in order to demonstrate increased AROM for visual scanning during driving and sitting at desk for work-related tasks STG Duration 7 weeks Paperboard Boxes Estimator Goal (LTG) Pt will improve cervical spine AROM B to at least 70 deg in order to demonstrate increased AROM for visual scanning during driving and sitting at desk for work-related tasks LTG Duration 10 weeks Two Impairment pain and limitation with B cervical lateral flexion Short Term Goal (STG) Pt will improve B lateral flexion AROM to at least 35 deg in order to demonstrate increased AROM for visual scanning and better pain management during work tasks STG Duration 7 weeks Paperboard Boxes Estimator Goal (LTG) Pt will improve B lateral flexion AROM to at least 40 deg in order to demonstrate increased AROM for visual scanning and better pain management during work tasks LTG Duration 10 weeks One Impairment not performing HEP to manage symptoms Paperboard Boxes Estimator Goal (LTG) Pt will report compliance with HEP at least 3x/wk in order to maximize progression with PT and transition to maintenance program upon discharge LTG Duration 10 weeks Assessment Summary Assessment Pt reports pain reduction from 3/10 to 2/10 at end of session. Responds well to manual therapy to posterior cervical paraspinals and periscapulars. Has increased tightness of suboccipitals which are also likely contributing to headache. Initiated pec stretching and self mobilization for pain management at home. Good response to wall posture but keeps head in extension despite cueing for positional changes. Continued with cervical isometrics for pain management, PT performing and then pt performing resistance submaximally; educated on neutral head position for isometrics, which improves pt' s R sided pain symptoms. PT recommended that pt alert MD of incident involving eye, go to ED if occurs again or headache worsens. Pt verbalizes understanding. Physical Therapy Plan Frequency and Duration Frequency of Treatment 1-2x/wk Duration of treatment (weeks) 10 Plan of Care Start Date 12/27/23 Plan of Care End Date 03/10/24 Therapeutic Interventions Therapeutic Interventions Balance Training,Gait Training ,Home Exercise Program,Joint Mobilizations,Manual Therapy, Neuromuscular Re-education, Orthotic/Prosthetic Management ,Patient/Caregiver Education, Self-Care/Home Management, Sensory Integration,Soft Tissue Mobilization,Taping, Therapeutic Activities, Therapeutic Exercises Modalities Cold Pack/Ice Massage,Electric Stimulation,Hot Packs, Ultrasound Next Visit Focus/Plan Next Note Type Treatment Note Next Visit Plan Ask about headaches and follow up call with doctor about eye /headaches. Wall posture- add band, trial scapular retractions and activation- can add band review cervical spine isometrics; trial flex and extension preet into pillow or towel roll; can trial gentle cervical retract trial open books, thoracic ext with hand support on sitting vs 1/2 foam roller; pec stretch and mobilization in standing (doorway) vs supine if genaro better Ergonomic and sleeping handouts Manual therapy
--- NOTE | 2023-12-29 16:01 | PT-OP ANOTE ---
PT called and left message with Dr. Fink regarding pt report about headache and temporary vision loss after pt report today in session. PT recommended that pt follow up with MD or go to ED if occurs again. Asked if MD wants pt to follow up regarding symptom or if wants to monitor/stop PT, please call and inform PT
--- NOTE | 2024-01-04 12:01 | PT.OTN ---
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 DAVID occurred in either in October or beginning of November. She lifted the printer from a low shelf, reports hard to get into space and around the printer. She reports that when she pulled the printer, she felt pain on the back of her neck. Reports not more 1 sided. She continued with her day, reports that the following Wednesday (2 days following injury), she felt pain when she woke up. States had difficulty with moving neck. 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 She reports that she has no other limitations for her job due to her neck, states only with sitting at computer, must travel to other offices for computers. She has a raised desk (sitting, standing), monitor at eye level. States that she used to have discomfort with going to other offices. She was on light duty for work; back on full duty at work. She reports that she has pain with B rotation, support with extension. Pt reports no numbness, tingling, burning into hands. She got an injection for pain (3-4 days post injury), which has helped. She reports no hx of She does states that she has a hx of use of muscle relaxers for muscle tension from before the injury, used only for stress. Not on medication to manage pain currently after 1st week but has been prescribed naproxen. She normally gets headaches from before injury but states not worse since injury. Prior Treatments and Tests Cervical spine x-ray 11/12/23 impression: Mild degenerative disc disease at C5-C6 levels and C6-C7 levels. No cervical spine fracture or dislocation Current Functional Impairments (Reported) Functional Limitations- Work/School driving, lifting, sleeping ( wakes at night)-has to remove pillow and lie straight on mattress states can sit for a couple of hours without moving before neck hurts (2 hours) PT-OP-C Subjective Start: 12/27/23 08:01 Freq: Status: Active Protocol: Document 01/04/24 10:53 NBM (Rec: 01/04/24 12:01 NBM [id number]) OP-PT Subjective Patient Comments Patient Comments Billie reports her headache and vision changes from last appt resolved the next day after taking ibuprofen and has not returned. Her PCP said they could not treat because it's an L& I case. She still has a hard time falling asleep because of the pain and wakes up from pain about 2am. Current pain is 1-2/10 in neck but she thinks the exercises are helping. The self-massage with ball helps the most. PT-OP-E Functional Tests Start: 12/27/23 08:01 Freq: Status: Active Protocol: Document 12/27/23 09:45 NM (Rec: 12/27/23 11:13 NM [id number]) Functional Tests Other deep neck flexor endurance test Name of Test with cervical retraction and gentle lift Score 1 second Comment painful PT-OP-F Manual Assessment Start: 12/27/23 08:01 Freq: Status: Active Protocol: Document 12/27/23 09:45 NM (Rec: 12/27/23 11:13 NM [id number]) Manual Assessments Soft Tissue Assessment Soft Tissue Mobility Assessment Tightness of cervical paraspinals, periscapulars, SCM, trapezius, levator scapula Joint Mobility Assessment Joint Mobility Assessment Hypomobility of CT junction, cervical spine with PA springing of paraspinals. Normal cervical spine motion with lateral glides- improves pain symptoms Other Manual Assessments Other Manual Assessments Cranial nerves 2-12 intact B PT-OP-G Mobility & Gait Start: 12/27/23 08:01 Freq: Status: Active Protocol: Document 12/27/23 09:45 NM (Rec: 12/27/23 11:13 NM [id number]) OP Gait Assessment Gait Gait Assistance Required: Independent Distance (Feet) 150 Assistive Devices Assistive Device None Comments Gait Comments Decreased trunk mobility PT-OP-H Neuro Start: 12/27/23 08:01 Freq: Status: Active Protocol: Document 12/27/23 09:45 NM (Rec: 12/27/23 11:13 NM [id number]) Sensation Evaluation Comments Summary Comments Cranial nerve 5, BUE equally intact to light touch sensation PT-OP-J Posture/Palpation/Skin Start: 12/27/23 08:01 Freq: Status: Active Protocol: Document 12/27/23 09:45 NM (Rec: 12/27/23 11:13 NM [id number]) Posture Evaluation Position Standing Head/C-Spine Posture C-Spine Flattened T-Spine Posture Increased Kyphosis L-Spine Posture Increased Lordosis Shoulder Posture (L) Rounded,(R) Rounded,(L) Forward,(R) Forward Scapula Posture (L) Protracted,(R) Protracted, (L) Winged,(R) Winged Pelvis Posture Anteriorly Tilted Weight Distribution Balanced Palpation Assessment Location cervical spine Palpation Details No scapular or periscapular pain; tension and tightness of trapezius, levator scapula Mild tenderness to palpation from base of occiput along cervical spinous processes, no pain with palpation of transverse processes Reports less pain with gentle lateral glides Tightness along B SCM (L>R), cervical and thoracic paraspinals, suboccipitals PT-OP-K Range of Motion Start: 12/27/23 08:01 Freq: Status: Active Protocol: Document 12/27/23 09:45 NM (Rec: 12/27/23 11:13 NM [id number]) Cervical Spine Range of Motion Cervical Spine Active Degrees Flexion 50 Extension 50 Rotation Left 48 Rotation Right 50 Lateral Flexion Left 30 Lateral Flexion Right 30 ROM Limitations Soft Tissue Tightness,Pain Comments mild pain with flexion, moderate pain with lateral flexion and rotation B; normally has pain with ext but not today Shoulder Goniometric Range of Motion Shoulder Right Flexion 170 Abduction 170 External Rotation at 90 degrees 70 Abduction Comments No symptoms with UE motion Left Flexion 170 Abduction 170 External Rotation at 90 degrees 70 Abduction Comments No symptoms with UE motion PT-OP-L Special Tests Start: 12/27/23 08:01 Freq: Status: Active Protocol: Document 12/29/23 10:44 NM (Rec: 12/29/23 11:34 NM [id number]) Special Tests Cervical Spine Special Tests Vertebral Artery Test Results BP: 123/80 mmHg, Auscultation/ palpation @ carotid a. &heart WFL Comments intact cranial and peripheral nerve testing; no symptoms w/ positional test PT-OP-M Strength Start: 12/27/23 08:01 Freq: Status: Active Protocol: Document 12/27/23 09:45 NM (Rec: 12/27/23 11:13 NM [id number]) Cervical Spine Strength Cervical Spine Manual Muscle Testing Flexion (C1-2) 4 Good Extension 4 Good Rotation Left 3+ Fair+ Rotation Right 3+ Fair+ Lateral Flexion Left (C3) 3+ Fair+ Lateral Flexion Right (C3) 3+ Fair+ Comments mild pain with resisted lateral flexion and rotation B , extension Shoulder Strength Shoulder Manual Muscle Testing Right Flexion 4 Good Abduction (C5) 4 Good External Rotation 4 Good Internal Rotation 4 Good Comments No pain with resisted testing Left Flexion 4 Good Abduction (C5) 4 Good External Rotation 4 Good Internal Rotation 4 Good Comments No pain with resisted testing Elbow/Forearm Strength Elbow and Forearm Manual Muscle Testing Right Flexion (C6) 4 Good Extension (C7) 4 Good Left Flexion (C6) 4 Good Extension (C7) 4 Good PT-OP-Q Treatments Start: 12/27/23 08:01 Freq: Status: Active Protocol: Document 01/04/24 10:53 NBM (Rec: 01/04/24 12:01 NBM [id number]) Therapeutic Exercises Supine Exercises cervical spine isometrics Supine Exercise Name HEP: 1. lateral flexion, 2. 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 Sitting Exercises cervical stretches Sitting Exercise Name 1. UT 2. LS Side bilateral Reps/Minutes 2x15s ea Comments cues for chin tuck Standing Exercises wall posture Standing Exercise Name gentle chin tuck w/ B ER and scapular retraction- HEP review Side bilateral Reps/Minutes 15x5 Comments Pt lacks carryover but demos appropriate w/ cues for chin tuck, form, hold. pec stretch Standing Exercise Name stretch 90/90 doorway- HEP review Side bilateral Reps/Minutes 60 ea Other Exercises self soft tissue mobilization Other Exercise Name standing at wall: rhomboids, LS- HEP verbal review Side right Equipment Used racquetball in pillow case Reps/Minutes 1 minute Comments positive feedback response Therapeutic Activity Therapeutic Activity sleeping positioning Reps/Minutes 8' Comments Edu to pt re: pillow support options for sidesleeping and supine sleeping with emphasis on spinal support and alignment throughout body - HO given. Manual Therapy Treatment Consent Patient gave verbal consent for manual Yes treatment Soft Tissue Mobilization cervical spine Body Location paraspinals, scalenes, UT, LS, post cuff, rhomboids, suboccipitals Mobilization Type Rolling,Strumming,Sustained Pressure,Other Intensity/Depth Moderate Body Position Hooklying Comments B tightness R>L. Trigger point at L UT, LS, lower cervical paraspinals R. Reduced with mobilization but still palpable and present even after manual therapy. Monitored for pain. Manual pin and stretch to victorina UT, LS with breathwork. Self-Care/Home Management Treatment Education Patient Education Body Mechanics,Home Exercise Program,Pain Management, Posture Other Education Edu to pt w/ visual aids re: cervical muscles and how improved posture and HEP exercises are related to improving pt's cervical pain. PT-OP-T Assessment and Plan Start: 12/27/23 08:01 Freq: Status: Active Protocol: Document 01/04/24 10:53 [facility] (Rec: 01/04/24 12:01 [facility] [id number]) Physical Therapy Assessment Goals Five Impairment pain due to lifting Short Term Goal (STG) Pt will be educated on body mechanics during lifting in order to reduce risk of re- injury STG Duration 8 weeks Skilled Nursing Goal (LTG) If appropriate, pt will be able to demonstrate good body mechanics while lifting resistance from ground level at least 5 times and report no pain with lifting at work LTG Duration 10 weeks Four Impairment pain with sleeping Short Term Goal (STG) Pt will be educated on sleeping ergonomics in order to improve symptom management and quality of life during sleeping STG Duration 3 weeks Liability Claims Adjuster Goal (LTG) Pt will report waking due to neck pain fewer than 5/7 days of the week in order to demonstrate improved symptom management and quality of life LTG Duration 10 weeks Three Impairment pain and limitation with B cervical rotation Short Term Goal (STG) Pt will improve cervical spine AROM B to at least 60 deg in order to demonstrate increased AROM for visual scanning during driving and sitting at desk for work-related tasks STG Duration 7 weeks Skilled Nursing Goal (LTG) Pt will improve cervical spine AROM B to at least 70 deg in order to demonstrate increased AROM for visual scanning during driving and sitting at desk for work-related tasks LTG Duration 10 weeks Two Impairment pain and limitation with B cervical lateral flexion Short Term Goal (STG) Pt will improve B lateral flexion AROM to at least 35 deg in order to demonstrate increased AROM for visual scanning and better pain management during work tasks STG Duration 7 weeks Skilled Nursing Goal (LTG) Pt will improve B lateral flexion AROM to at least 40 deg in order to demonstrate increased AROM for visual scanning and better pain management during work tasks LTG Duration 10 weeks One Impairment not performing HEP to manage symptoms Liability Claims Adjuster Goal (LTG) Pt will report compliance with HEP at least 3x/wk in order to maximize progression with PT and transition to maintenance program upon discharge LTG Duration 10 weeks Assessment Summary Assessment Billie reports no further incidence of headache or visual disturbance. She presents with 1-2/10 cervical pain which becomes 1-2/10 cervical discomfort due to soreness more than pain end of session. Treatment focus on manual therapy, sleeping positioning education w/ HO, and postural education with visual aids. Palpable tension to Victorina UT and LS improves with manual therapy. She requires cueing for stretching into pain-free range only and for chin tuck with cervical stretches in sitting and with wall posture but demos improved self-awareness with cueing and repetition. Pt encouraged to take stretching breaks from sitting at computer and check in with upright sitting posture - she may benefit from further discussion of sitting ergonomics for computer setup. Physical Therapy Plan Frequency and Duration Frequency of Treatment 1-2x/wk Duration of treatment (weeks) 10 Plan of Care Start Date 12/27/23 Plan of Care End Date 03/10/24 Therapeutic Interventions Therapeutic Interventions Balance Training,Gait Training ,Home Exercise Program,Joint Mobilizations,Manual Therapy, Neuromuscular Re-education, Orthotic/Prosthetic Management ,Patient/Caregiver Education, Self-Care/Home Management, Sensory Integration,Soft Tissue Mobilization,Taping, Therapeutic Activities, Therapeutic Exercises Modalities Cold Pack/Ice Massage,Electric Stimulation,Hot Packs, Ultrasound Next Visit Focus/Plan Next Note Type Treatment Note Next Visit Plan Check on sleeping positioning and if recheck no further incidence with headaches/ vision. Wall posture- add band, trial scapular retractions and activation- can add band review cervical spine isometrics; trial flex and extension preet into pillow or towel roll; can trial gentle cervical retract trial open books, thoracic ext with hand support on sitting vs 1/2 foam roller; pec stretch and mobilization in standing (doorway) vs supine if genaro better Ergonomic and sleeping handouts Manual therapy
--- NOTE | 2024-01-07 12:10 | PT.OTN ---
Current Diagnoses Stiffness of other specified joint, not elsewhere classified (01/07/24) Cervicalgia (01/07/24) Weakness (01/07/24) Strain of muscle, fascia and tendon at neck level, subsequent encounter (01/07/24) Physical Therapy Treatment Note PT-OP-A Visit Information Start: 12/27/23 08:01 Freq: Status: Active Protocol: Document 01/07/24 11:49 NBM (Rec: 01/07/24 12:10 NBM [id number]) Out-Patient Physical Therapy Visit Information Visit Information Visit Type Treatment Note Visit Note 12 visits approved initially Visit Start Time 10:54 Visit Stop Time 11:34 Visit Number 4/ Number of [employer]ICATION [employer]IST Visits 2 PT-OP-B Current Condition Start: 12/27/23 08:01 Freq: Status: Active Protocol: Document 12/27/23 09:45 NM (Rec: 12/27/23 11:13 NM [id number]) Current Condition History of Current Condition Onset Date October 2023 Current Complaints pain, limited mobility History of Current Condition Pt presents with neck pain after lifting a heavy printer. DAVID occurred in either in October or beginning of November. She lifted the printer from a low shelf, reports hard to get into space and around the printer. She reports that when she pulled the printer, she felt pain on the back of her neck. Reports not more 1 sided. She continued with her day, reports that the following Wednesday (2 days following injury), she felt pain when she woke up. States had difficulty with moving neck. 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 She reports that she has no other limitations for her job due to her neck, states only with sitting at computer, must travel to other offices for computers. She has a raised desk (sitting, standing), monitor at eye level. States that she used to have discomfort with going to other offices. She was on light duty for work; back on full duty at work. She reports that she has pain with B rotation, support with extension. Pt reports no numbness, tingling, burning into hands. She got an injection for pain (3-4 days post injury), which has helped. She reports no hx of She does states that she has a hx of use of muscle relaxers for muscle tension from before the injury, used only for stress. Not on medication to manage pain currently after 1st week but has been prescribed naproxen. She normally gets headaches from before injury but states not worse since injury. Prior Treatments and Tests Cervical spine x-ray 11/12/23 impression: Mild degenerative disc disease at C5-C6 levels and C6-C7 levels. No cervical spine fracture or dislocation Current Functional Impairments (Reported) Functional Limitations- Work/School driving, lifting, sleeping ( wakes at night)-has to remove pillow and lie straight on mattress states can sit for a couple of hours without moving before neck hurts (2 hours) PT-OP-C Subjective Start: 12/27/23 08:01 Freq: Status: Active Protocol: Document 01/07/24 11:49 NBM (Rec: 01/07/24 12:10 NBM [id number]) OP-PT Subjective Patient Comments Patient Comments Billie reports 1-2/10 neck pain and she hasn't been feeling well, cough kept her up sleeping and may have distracted her from neck pain. She added pillows under head and between ankles when sleeping which she thinks has helped. She hasn't done ex's the past few days since not feeling well, but felt very good after last PT visit so did not want to miss today's appointment. No further incidence of headache or vision changes are reported. PT-OP-E Functional Tests Start: 12/27/23 08:01 Freq: Status: Active Protocol: Document 12/27/23 09:45 NM (Rec: 12/27/23 11:13 NM [id number]) Functional Tests Other deep neck flexor endurance test Name of Test with cervical retraction and gentle lift Score 1 second Comment painful PT-OP-F Manual Assessment Start: 12/27/23 08:01 Freq: Status: Active Protocol: Document 12/27/23 09:45 NM (Rec: 12/27/23 11:13 NM [id number]) Manual Assessments Soft Tissue Assessment Soft Tissue Mobility Assessment Tightness of cervical paraspinals, periscapulars, SCM, trapezius, levator scapula Joint Mobility Assessment Joint Mobility Assessment Hypomobility of CT junction, cervical spine with PA springing of paraspinals. Normal cervical spine motion with lateral glides- improves pain symptoms Other Manual Assessments Other Manual Assessments Cranial nerves 2-12 intact B PT-OP-G Mobility & Gait Start: 12/27/23 08:01 Freq: Status: Active Protocol: Document 12/27/23 09:45 NM (Rec: 12/27/23 11:13 NM [id number]) OP Gait Assessment Gait Gait Assistance Required: Independent Distance (Feet) 150 Assistive Devices Assistive Device None Comments Gait Comments Decreased trunk mobility PT-OP-H Neuro Start: 12/27/23 08:01 Freq: Status: Active Protocol: Document 12/27/23 09:45 NM (Rec: 12/27/23 11:13 NM [id number]) Sensation Evaluation Comments Summary Comments Cranial nerve 5, BUE equally intact to light touch sensation PT-OP-J Posture/Palpation/Skin Start: 12/27/23 08:01 Freq: Status: Active Protocol: Document 12/27/23 09:45 NM (Rec: 12/27/23 11:13 NM [id number]) Posture Evaluation Position Standing Head/C-Spine Posture C-Spine Flattened T-Spine Posture Increased Kyphosis L-Spine Posture Increased Lordosis Shoulder Posture (L) Rounded,(R) Rounded,(L) Forward,(R) Forward Scapula Posture (L) Protracted,(R) Protracted, (L) Winged,(R) Winged Pelvis Posture Anteriorly Tilted Weight Distribution Balanced Palpation Assessment Location cervical spine Palpation Details No scapular or periscapular pain; tension and tightness of trapezius, levator scapula Mild tenderness to palpation from base of occiput along cervical spinous processes, no pain with palpation of transverse processes Reports less pain with gentle lateral glides Tightness along B SCM (L>R), cervical and thoracic paraspinals, suboccipitals PT-OP-K Range of Motion Start: 12/27/23 08:01 Freq: Status: Active Protocol: Document 12/27/23 09:45 NM (Rec: 12/27/23 11:13 NM [id number]) Cervical Spine Range of Motion Cervical Spine Active Degrees Flexion 50 Extension 50 Rotation Left 48 Rotation Right 50 Lateral Flexion Left 30 Lateral Flexion Right 30 ROM Limitations Soft Tissue Tightness,Pain Comments mild pain with flexion, moderate pain with lateral flexion and rotation B; normally has pain with ext but not today Shoulder Goniometric Range of Motion Shoulder Right Flexion 170 Abduction 170 External Rotation at 90 degrees 70 Abduction Comments No symptoms with UE motion Left Flexion 170 Abduction 170 External Rotation at 90 degrees 70 Abduction Comments No symptoms with UE motion PT-OP-L Special Tests Start: 12/27/23 08:01 Freq: Status: Active Protocol: Document 12/29/23 10:44 NM (Rec: 12/29/23 11:34 NM [id number]) Special Tests Cervical Spine Special Tests Vertebral Artery Test Results BP: 123/80 mmHg, Auscultation/ palpation @ carotid a. &heart WFL Comments intact cranial and peripheral nerve testing; no symptoms w/ positional test PT-OP-M Strength Start: 12/27/23 08:01 Freq: Status: Active Protocol: Document 12/27/23 09:45 NM (Rec: 12/27/23 11:13 NM [id number]) Cervical Spine Strength Cervical Spine Manual Muscle Testing Flexion (C1-2) 4 Good Extension 4 Good Rotation Left 3+ Fair+ Rotation Right 3+ Fair+ Lateral Flexion Left (C3) 3+ Fair+ Lateral Flexion Right (C3) 3+ Fair+ Comments mild pain with resisted lateral flexion and rotation B , extension Shoulder Strength Shoulder Manual Muscle Testing Right Flexion 4 Good Abduction (C5) 4 Good External Rotation 4 Good Internal Rotation 4 Good Comments No pain with resisted testing Left Flexion 4 Good Abduction (C5) 4 Good External Rotation 4 Good Internal Rotation 4 Good Comments No pain with resisted testing Elbow/Forearm Strength Elbow and Forearm Manual Muscle Testing Right Flexion (C6) 4 Good Extension (C7) 4 Good Left Flexion (C6) 4 Good Extension (C7) 4 Good PT-OP-Q Treatments Start: 12/27/23 08:01 Freq: Status: Active Protocol: Document 01/07/24 11:49 NBM (Rec: 01/07/24 12:10 NBM [id number]) Therapeutic Exercises Supine Exercises cervical spine isometrics Supine Exercise Name HEP: 1. lateral flexion, 2. rotation Side bilateral Equipment Used [employer] hand w/ head supported on pillow Reps/Minutes 1.10x2 ea>10x5 2. 10x2 w/ cues for pain-free range Comments no pain with lateral flexion or L rotation, pain w/ R rot improves w/ cues Sitting Exercises cervical stretches Sitting Exercise Name 1. UT 2. LS - verbal review Side bilateral Reps/Minutes 2x15s ea Comments cues for chin tuck Standing Exercises wall posture Standing Exercise Name gentle chin tuck w/ B ER and scapular retraction- HEP verbal review Side bilateral Reps/Minutes 15x5 Comments Pt lacks carryover but demos appropriate w/ cues for chin tuck, form, hold. Other Exercises self soft tissue mobilization Other Exercise Name standing at wall: rhomboids, LS- HEP verbal review Side right Equipment Used racquetball in pillow case Reps/Minutes 1 minute Comments positive feedback response Manual Therapy Treatment Consent Patient gave verbal consent for manual Yes treatment Soft Tissue Mobilization cervical spine Body Location paraspinals, scalenes, UT, LS, rhomboids, SOR Mobilization Type Rolling,Strumming,Sustained Pressure,Other Intensity/Depth Moderate Body Position Hooklying Comments B tightness R>L. Trigger point at R UT and lower R cervical paraspinals. Manual pin and stretch to victorina UT, LS with breathwork. Manual Traction Cervical Body Position Hooklying Reps/Duration x30s Comments positive feedback response PT-OP-T Assessment and Plan Start: 12/27/23 08:01 Freq: Status: Active Protocol: Document 01/07/24 11:49 [facility] (Rec: 01/07/24 12:10 [facility] [id number]) Physical Therapy Assessment Goals Five Impairment pain due to lifting Short Term Goal (STG) Pt will be educated on body mechanics during lifting in order to reduce risk of re- injury STG Duration 8 weeks Half Backer Goal (LTG) If appropriate, pt will be able to demonstrate good body mechanics while lifting resistance from ground level at least 5 times and report no pain with lifting at work LTG Duration 10 weeks Four Impairment pain with sleeping Short Term Goal (STG) Pt will be educated on sleeping ergonomics in order to improve symptom management and quality of life during sleeping 01/03: Pt edu on sleeping ergonomics - HO given 01/06: Pt reports improvement with pillow supports STG Duration 3 weeks Long-Term Goal (LTG) Pt will report waking due to neck pain fewer than 5/7 days of the week in order to demonstrate improved symptom management and quality of life LTG Duration 10 weeks Three Impairment pain and limitation with B cervical rotation Short Term Goal (STG) Pt will improve cervical spine AROM B to at least 60 deg in order to demonstrate increased AROM for visual scanning during driving and sitting at desk for work-related tasks STG Duration 7 weeks Long-Term Goal (LTG) Pt will improve cervical spine AROM B to at least 70 deg in order to demonstrate increased AROM for visual scanning during driving and sitting at desk for work-related tasks LTG Duration 10 weeks Two Impairment pain and limitation with B cervical lateral flexion Short Term Goal (STG) Pt will improve B lateral flexion AROM to at least 35 deg in order to demonstrate increased AROM for visual scanning and better pain management during work tasks STG Duration 7 weeks Half Backer Goal (LTG) Pt will improve B lateral flexion AROM to at least 40 deg in order to demonstrate increased AROM for visual scanning and better pain management during work tasks LTG Duration 10 weeks One Impairment not performing HEP to manage symptoms Long-Term Goal (LTG) Pt will report compliance with HEP at least 3x/wk in order to maximize progression with PT and transition to maintenance program upon discharge 01/06: Pt reports unable to do ex's due to illness since 01/03 . LTG Duration 10 weeks Assessment Summary Assessment Billie presents feeling unwell with 1-2/10 cervical pain which improves to 0/10 pain end of session. Treatment focus on manual therapy, cervical isometrics and verbal review of ex's, cervical stretches and self-STM. Pt requires cues for chin retraction with cervical iso's and pain with R cervical rotation improves with cues for pain-free effort. Palpable tension to cervical muscles is greater in R with trigger point in R UT which improves to palpation with manual therapy. Physical Therapy Plan Frequency and Duration Frequency of Treatment 1-2x/wk Duration of treatment (weeks) 10 Plan of Care Start Date 12/27/23 Plan of Care End Date 03/10/24 Therapeutic Interventions Therapeutic Interventions Balance Training,Gait Training ,Home Exercise Program,Joint Mobilizations,Manual Therapy, Neuromuscular Re-education, Orthotic/Prosthetic Management ,Patient/Caregiver Education, Self-Care/Home Management, Sensory Integration,Soft Tissue Mobilization,Taping, Therapeutic Activities, Therapeutic Exercises Modalities Cold Pack/Ice Massage,Electric Stimulation,Hot Packs, Ultrasound Next Visit Focus/Plan Next Note Type Treatment Note Next Visit Plan Check on sleeping positioning and recheck no further incidence with headaches/ vision. Wall posture- add band, trial scapular retractions and activation- can add band review cervical spine isometrics; trial flex and extension preet into pillow or towel roll; can trial gentle cervical retract trial open books, thoracic ext with hand support on sitting vs 1/2 foam roller; pec stretch and mobilization in standing (doorway) vs supine if genaro better Ergonomic and sleeping handouts Manual therapy
--- NOTE | 2024-01-11 15:06 | PT.OTN ---
Current Diagnoses Stiffness of other specified joint, not elsewhere classified (01/11/24) Cervicalgia (01/11/24) Weakness (01/11/24) Strain of muscle, fascia and tendon at neck level, subsequent encounter (01/11/24) Physical Therapy Treatment Note PT-OP-A Visit Information Start: 12/27/23 08:01 Freq: Status: Active Protocol: Document 01/11/24 10:37 NBM (Rec: 01/11/24 12:43 NBM [id number]) Out-Patient Physical Therapy Visit Information Visit Information Visit Type Treatment Note Visit Note 12 visits approved initially Visit Start Time 10:47 Visit Stop Time 11:38 Visit Number 5/ Number of STATIONS SUPERINTENDENT Visits 3 Evaluation Information Evaluation Date 12/27/23 Precautions Precautions hx headaches PT-OP-B Current Condition Start: 12/27/23 08:01 Freq: Status: Active Protocol: Document 12/27/23 09:45 NM (Rec: 12/27/23 11:13 NM [id number]) Current Condition History of Current Condition Onset Date October 2023 Current Complaints pain, limited mobility History of Current Condition Pt presents with neck pain after lifting a heavy printer. DAVID occurred in either in October or beginning of November. She lifted the printer from a low shelf, reports hard to get into space and around the printer. She reports that when she pulled the printer, she felt pain on the back of her neck. Reports not more 1 sided. She continued with her day, reports that the following Wednesday (2 days following injury), she felt pain when she woke up. States had difficulty with moving neck. 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 She reports that she has no other limitations for her job due to her neck, states only with sitting at computer, must travel to other offices for computers. She has a raised desk (sitting, standing), monitor at eye level. States that she used to have discomfort with going to other offices. She was on light duty for work; back on full duty at work. She reports that she has pain with B rotation, support with extension. Pt reports no numbness, tingling, burning into hands. She got an injection for pain (3-4 days post injury), which has helped. She reports no hx of She does states that she has a hx of use of muscle relaxers for muscle tension from before the injury, used only for stress. Not on medication to manage pain currently after 1st week but has been prescribed naproxen. She normally gets headaches from before injury but states not worse since injury. Prior Treatments and Tests Cervical spine x-ray 11/12/23 impression: Mild degenerative disc disease at C5-C6 levels and C6-C7 levels. No cervical spine fracture or dislocation Current Functional Impairments (Reported) Functional Limitations- Work/School driving, lifting, sleeping ( wakes at night)-has to remove pillow and lie straight on mattress states can sit for a couple of hours without moving before neck hurts (2 hours) PT-OP-C Subjective Start: 12/27/23 08:01 Freq: Status: Active Protocol: Document 01/11/24 10:37 NBM (Rec: 01/11/24 12:43 NBM [id number]) OP-PT Subjective Patient Comments Patient Comments Billie reports she still has slight cough and hasn't been feeling well so took it easy. Her neck pain is R-sided 3/10 right now. Sleep was difficult last night and she wonders if she needs an X-ray because she feels better 1-2 days after PT but then pain returns . She has been using heat to manage neck pain. No further incidents with headaches or vision. PT-OP-E Functional Tests Start: 12/27/23 08:01 Freq: Status: Active Protocol: Document 12/27/23 09:45 NM (Rec: 12/27/23 11:13 NM [id number]) Functional Tests Other deep neck flexor endurance test Name of Test with cervical retraction and gentle lift Score 1 second Comment painful PT-OP-F Manual Assessment Start: 12/27/23 08:01 Freq: Status: Active Protocol: Document 12/27/23 09:45 NM (Rec: 12/27/23 11:13 NM [id number]) Manual Assessments Soft Tissue Assessment Soft Tissue Mobility Assessment Tightness of cervical paraspinals, periscapulars, SCM, trapezius, levator scapula Joint Mobility Assessment Joint Mobility Assessment Hypomobility of CT junction, cervical spine with PA springing of paraspinals. Normal cervical spine motion with lateral glides- improves pain symptoms Other Manual Assessments Other Manual Assessments Cranial nerves 2-12 intact B PT-OP-G Mobility & Gait Start: 12/27/23 08:01 Freq: Status: Active Protocol: Document 12/27/23 09:45 NM (Rec: 12/27/23 11:13 NM [id number]) OP Gait Assessment Gait Gait Assistance Required: Independent Distance (Feet) 150 Assistive Devices Assistive Device None Comments Gait Comments Decreased trunk mobility PT-OP-H Neuro Start: 12/27/23 08:01 Freq: Status: Active Protocol: Document 12/27/23 09:45 NM (Rec: 12/27/23 11:13 NM [id number]) Sensation Evaluation Comments Summary Comments Cranial nerve 5, BUE equally intact to light touch sensation PT-OP-J Posture/Palpation/Skin Start: 12/27/23 08:01 Freq: Status: Active Protocol: Document 12/27/23 09:45 NM (Rec: 12/27/23 11:13 NM [id number]) Posture Evaluation Position Standing Head/C-Spine Posture C-Spine Flattened T-Spine Posture Increased Kyphosis L-Spine Posture Increased Lordosis Shoulder Posture (L) Rounded,(R) Rounded,(L) Forward,(R) Forward Scapula Posture (L) Protracted,(R) Protracted, (L) Winged,(R) Winged Pelvis Posture Anteriorly Tilted Weight Distribution Balanced Palpation Assessment Location cervical spine Palpation Details No scapular or periscapular pain; tension and tightness of trapezius, levator scapula Mild tenderness to palpation from base of occiput along cervical spinous processes, no pain with palpation of transverse processes Reports less pain with gentle lateral glides Tightness along B SCM (L>R), cervical and thoracic paraspinals, suboccipitals PT-OP-K Range of Motion Start: 12/27/23 08:01 Freq: Status: Active Protocol: Document 12/27/23 09:45 NM (Rec: 12/27/23 11:13 NM [id number]) Cervical Spine Range of Motion Cervical Spine Active Degrees Flexion 50 Extension 50 Rotation Left 48 Rotation Right 50 Lateral Flexion Left 30 Lateral Flexion Right 30 ROM Limitations Soft Tissue Tightness,Pain Comments mild pain with flexion, moderate pain with lateral flexion and rotation B; normally has pain with ext but not today Shoulder Goniometric Range of Motion Shoulder Right Flexion 170 Abduction 170 External Rotation at 90 degrees 70 Abduction Comments No symptoms with UE motion Left Flexion 170 Abduction 170 External Rotation at 90 degrees 70 Abduction Comments No symptoms with UE motion PT-OP-L Special Tests Start: 12/27/23 08:01 Freq: Status: Active Protocol: Document 12/29/23 10:44 NM (Rec: 12/29/23 11:34 NM [id number]) Special Tests Cervical Spine Special Tests Vertebral Artery Test Results BP: 123/80 mmHg, Auscultation/ palpation @ carotid a. &heart WFL Comments intact cranial and peripheral nerve testing; no symptoms w/ positional test PT-OP-M Strength Start: 12/27/23 08:01 Freq: Status: Active Protocol: Document 12/27/23 09:45 NM (Rec: 12/27/23 11:13 NM [id number]) Cervical Spine Strength Cervical Spine Manual Muscle Testing Flexion (C1-2) 4 Good Extension 4 Good Rotation Left 3+ Fair+ Rotation Right 3+ Fair+ Lateral Flexion Left (C3) 3+ Fair+ Lateral Flexion Right (C3) 3+ Fair+ Comments mild pain with resisted lateral flexion and rotation B , extension Shoulder Strength Shoulder Manual Muscle Testing Right Flexion 4 Good Abduction (C5) 4 Good External Rotation 4 Good Internal Rotation 4 Good Comments No pain with resisted testing Left Flexion 4 Good Abduction (C5) 4 Good External Rotation 4 Good Internal Rotation 4 Good Comments No pain with resisted testing Elbow/Forearm Strength Elbow and Forearm Manual Muscle Testing Right Flexion (C6) 4 Good Extension (C7) 4 Good Left Flexion (C6) 4 Good Extension (C7) 4 Good PT-OP-Q Treatments Start: 12/27/23 08:01 Freq: Status: Active Protocol: Document 01/11/24 10:37 NBM (Rec: 01/11/24 12:43 NBM [id number]) Therapeutic Exercises Supine Exercises cervical spine isometrics Supine Exercise Name HEP: 1. lateral flexion, 2. rotation Side right Equipment Used STATIONS SUPERINTENDENT hand w/ head supported on pillow Reps/Minutes 1.10x2 ea>10x5 2. 10x2 w/ cues for pain-free range Comments w/ STM to R UT and scalenes. Sitting Exercises cervical stretches Sitting Exercise Name 1. UT 2. LS - verbal review Side bilateral Reps/Minutes 2x15s ea Comments cues for chin tuck Standing Exercises wall posture Standing Exercise Name gentle chin tuck w/ B ER and scapular retraction- HEP verbal review Side bilateral Reps/Minutes 15x5 Comments Pt lacks carryover but demos appropriate w/ cues for chin tuck, form, hold. Other Exercises self soft tissue mobilization Other Exercise Name standing at wall: rhomboids, LS- HEP verbal review Side right Equipment Used tennis ball in pillow case Reps/Minutes 1 minute Comments positive feedback response Manual Therapy Treatment Consent Patient gave verbal consent for manual Yes treatment Soft Tissue Mobilization cervical spine Body Location paraspinals, scalenes, UT, LS, SOR Mobilization Type Rolling,Strumming,Sustained Pressure,Other Intensity/Depth Moderate Body Position Hooklying Comments B tightness R>L. Trigger point at R UT. STM to R UT w/ FM. Manual pin and stretch to [place]or[place] UT, LS with breathwork x30s ea . Manual Traction Cervical Body Position Hooklying Reps/Duration x30s Comments positive feedback response Self-Care/Home Management Treatment Education Patient Education Body Mechanics,Home Exercise Program,Pain Management, Posture Other Education Edu to pt w/ visual aids for sitting ergonomics and computer desk setup - HO given . PT-OP-R Modalities Start: 12/27/23 08:01 Freq: Status: Active Protocol: Document 01/11/24 10:37 NBM (Rec: 01/11/24 14:54 [facility] [id number]) Hot Pack/Cold Pack Treatment Cold Pack Location cervical Patient Position Hooklying Patient Tolerance Good Comments 8 min held w/ clip PT-OP-T Assessment and Plan Start: 12/27/23 08:01 Freq: Status: Active Protocol: Document 01/11/24 10:37 NBM (Rec: 01/11/24 12:43 [facility] [id number]) Physical Therapy Assessment Goals Five Impairment pain due to lifting Short Term Goal (STG) Pt will be educated on body mechanics during lifting in order to reduce risk of re- injury STG Duration 8 weeks [facility] Goal (LTG) If appropriate, pt will be able to demonstrate good body mechanics while lifting resistance from ground level at least 5 times and report no pain with lifting at work LTG Duration 10 weeks Four Impairment pain with sleeping Short Term Goal (STG) Pt will be educated on sleeping ergonomics in order to improve symptom management and quality of life during sleeping 01/03: Pt edu on sleeping ergonomics - HO given 01/06: Pt reports improvement with pillow supports STG Duration 3 weeks [facility] Goal (LTG) Pt will report waking due to neck pain fewer than 5/7 days of the week in order to demonstrate improved symptom management and quality of life LTG Duration 10 weeks Three Impairment pain and limitation with B cervical rotation Short Term Goal (STG) Pt will improve cervical spine AROM B to at least 60 deg in order to demonstrate increased AROM for visual scanning during driving and sitting at desk for work-related tasks STG Duration 7 weeks [employer] Goal (LTG) Pt will improve cervical spine AROM B to at least 70 deg in order to demonstrate increased AROM for visual scanning during driving and sitting at desk for work-related tasks LTG Duration 10 weeks Two Impairment pain and limitation with B cervical lateral flexion Short Term Goal (STG) Pt will improve B lateral flexion AROM to at least 35 deg in order to demonstrate increased AROM for visual scanning and better pain management during work tasks STG Duration 7 weeks [employer] Goal (LTG) Pt will improve B lateral flexion AROM to at least 40 deg in order to demonstrate increased AROM for visual scanning and better pain management during work tasks LTG Duration 10 weeks One Impairment not performing HEP to manage symptoms [facility] Goal (LTG) Pt will report compliance with HEP at least 3x/wk in order to maximize progression with PT and transition to maintenance program upon discharge 01/06: Pt reports unable to do ex's due to illness since 01/03 . 01/11/24: Discussion w/ pt importance of HEP to achieve personal goals w/ pt expressing understanding. Added to HEP: self-STM w/ tennis ball, wall posture w/ Lvl 1 Tb resisted scapular squeezes - HO given. Sitting ergonomics HO reviewed and given. LTG Duration 10 weeks Assessment Summary Assessment Billie presents with 3/10 R- sided cervical pain today which improves to 2/10 end of session. Explained to pt the imaging she had done in Oct was a cervical X-ray which PT had when evaluating for cervical muscle strain diagnosis. Discussion w/ pt importance of HEP to achieve personal goals w/ pt expressing understanding. Added to HEP: self-STM w/ tennis ball, wall posture w/ Lvl 1 Tb resisted scapular squeezes - HO and Lvl 1 Tb given. Sitting ergonomics HO reviewed and given. Palpable tension to R UT improves with STM. Edu to pt re: cold pack vs heat to cervical region for pain and inflammation management. Cryotherapy provided to cervical region end of session. Physical Therapy Plan Frequency and Duration Frequency of Treatment 1-2x/wk Duration of treatment (weeks) 10 Plan of Care Start Date 12/27/23 Plan of Care End Date 03/10/24 Therapeutic Interventions Therapeutic Interventions Balance Training,Gait Training ,Home Exercise Program,Joint Mobilizations,Manual Therapy, Neuromuscular Re-education, Orthotic/Prosthetic Management ,Patient/Caregiver Education, Self-Care/Home Management, Sensory Integration,Soft Tissue Mobilization,Taping, Therapeutic Activities, Therapeutic Exercises Modalities Cold Pack/Ice Massage,Electric Stimulation,Hot Packs, Ultrasound Next Visit Focus/Plan Next Note Type Treatment Note Next Visit Plan Check on sleeping positioning and recheck no further incidence with headaches/ vision. Review Wall posture w/band ( HEP), trial scapular retractions and activation- can add band review cervical spine isometrics; trial flex and extension preet into pillow or towel roll; can trial gentle cervical retract trial open books, thoracic ext with hand support on sitting vs 1/2 foam roller; pec stretch and mobilization in standing (doorway) vs supine if genaro better Manual therapy
--- NOTE | 2024-01-25 12:54 | PT.OTN ---
Current Diagnoses Stiffness of other specified joint, not elsewhere classified (01/25/24) Cervicalgia (01/25/24) Weakness (01/25/24) Strain of muscle, fascia and tendon at neck level, subsequent encounter (01/25/24) Physical Therapy Treatment Note PT-OP-A Visit Information Start: 12/27/23 08:01 Freq: Status: Active Protocol: Document 01/25/24 10:44 NM (Rec: 01/25/24 10:57 NM [id number]) Out-Patient Physical Therapy Visit Information Visit Information Visit Type Progress Note Visit Note 12 visits approved initially Visit Start Time 10:49 Visit Stop Time 11:30 Visit Number 7/ Number of SUPERVISOR ORDER TAKERS Visits 0 Evaluation Information Evaluation Date 12/27/23 Precautions Precautions hx headaches PT-OP-B Current Condition Start: 12/27/23 08:01 Freq: Status: Active Protocol: Document 12/27/23 09:45 NM (Rec: 12/27/23 11:13 NM [id number]) Current Condition History of Current Condition Onset Date October 2023 Current Complaints pain, limited mobility History of Current Condition Pt presents with neck pain after lifting a heavy printer. DAVID occurred in either in October or beginning of November. She lifted the printer from a low shelf, reports hard to get into space and around the printer. She reports that when she pulled the printer, she felt pain on the back of her neck. Reports not more 1 sided. She continued with her day, reports that the following Wednesday (2 days following injury), she felt pain when she woke up. States had difficulty with moving neck. 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 She reports that she has no other limitations for her job due to her neck, states only with sitting at computer, must travel to other offices for computers. She has a raised desk (sitting, standing), monitor at eye level. States that she used to have discomfort with going to other offices. She was on light duty for work; back on full duty at work. She reports that she has pain with B rotation, support with extension. Pt reports no numbness, tingling, burning into hands. She got an injection for pain (3-4 days post injury), which has helped. She reports no hx of She does states that she has a hx of use of muscle relaxers for muscle tension from before the injury, used only for stress. Not on medication to manage pain currently after 1st week but has been prescribed naproxen. She normally gets headaches from before injury but states not worse since injury. Prior Treatments and Tests Cervical spine x-ray 11/12/23 impression: Mild degenerative disc disease at C5-C6 levels and C6-C7 levels. No cervical spine fracture or dislocation Current Functional Impairments (Reported) Functional Limitations- Work/School driving, lifting, sleeping ( wakes at night)-has to remove pillow and lie straight on mattress states can sit for a couple of hours without moving before neck hurts (2 hours) PT-OP-C Subjective Start: 12/27/23 08:01 Freq: Status: Active Protocol: Document 01/25/24 10:44 NM (Rec: 01/25/24 10:57 NM [id number]) OP-PT Subjective Patient Comments Patient Comments Pt reports consistently less pain in her neck over past several days. She reports that sitting on computer for a long times, still causes increased pain. Pt also reports pain with driving and turning head, but reports less than previously. She reports that she no longer has to hold her head with her hand. Pt reports compliance with HEP almost every day, when has time PT-OP-E Functional Tests Start: 12/27/23 08:01 Freq: Status: Active Protocol: Document 12/27/23 09:45 NM (Rec: 12/27/23 11:13 NM [id number]) Functional Tests Other deep neck flexor endurance test Name of Test with cervical retraction and gentle lift Score 1 second Comment painful PT-OP-F Manual Assessment Start: 12/27/23 08:01 Freq: Status: Active Protocol: Document 12/27/23 09:45 NM (Rec: 12/27/23 11:13 NM [id number]) Manual Assessments Soft Tissue Assessment Soft Tissue Mobility Assessment Tightness of cervical paraspinals, periscapulars, SCM, trapezius, levator scapula Joint Mobility Assessment Joint Mobility Assessment Hypomobility of CT junction, cervical spine with PA springing of paraspinals. Normal cervical spine motion with lateral glides- improves pain symptoms Other Manual Assessments Other Manual Assessments Cranial nerves 2-12 intact B PT-OP-G Mobility & Gait Start: 12/27/23 08:01 Freq: Status: Active Protocol: Document 12/27/23 09:45 NM (Rec: 12/27/23 11:13 NM [id number]) OP Gait Assessment Gait Gait Assistance Required: Independent Distance (Feet) 150 Assistive Devices Assistive Device None Comments Gait Comments Decreased trunk mobility PT-OP-H Neuro Start: 12/27/23 08:01 Freq: Status: Active Protocol: Document 12/27/23 09:45 NM (Rec: 12/27/23 11:13 NM [id number]) Sensation Evaluation Comments Summary Comments Cranial nerve 5, BUE equally intact to light touch sensation PT-OP-J Posture/Palpation/Skin Start: 12/27/23 08:01 Freq: Status: Active Protocol: Document 12/27/23 09:45 NM (Rec: 12/27/23 11:13 NM [id number]) Posture Evaluation Position Standing Head/C-Spine Posture C-Spine Flattened T-Spine Posture Increased Kyphosis L-Spine Posture Increased Lordosis Shoulder Posture (L) Rounded,(R) Rounded,(L) Forward,(R) Forward Scapula Posture (L) Protracted,(R) Protracted, (L) Winged,(R) Winged Pelvis Posture Anteriorly Tilted Weight Distribution Balanced Palpation Assessment Location cervical spine Palpation Details No scapular or periscapular pain; tension and tightness of trapezius, levator scapula Mild tenderness to palpation from base of occiput along cervical spinous processes, no pain with palpation of transverse processes Reports less pain with gentle lateral glides Tightness along B SCM (L>R), cervical and thoracic paraspinals, suboccipitals PT-OP-K Range of Motion Start: 12/27/23 08:01 Freq: Status: Active Protocol: Document 01/25/24 10:44 NM (Rec: 01/25/24 10:57 NM [id number]) Cervical Spine Range of Motion Cervical Spine Active Degrees Flexion 50 Extension 50 Rotation Left 48 Rotation Right 50 Lateral Flexion Left 30 Lateral Flexion Right 30 ROM Limitations Soft Tissue Tightness,Pain Comments mild pain with flexion, moderate pain with lateral flexion and rotation B; normally has pain with ext but not today 01/25/24: 50 deg flex, 50 deg ext, 35 deg R LF, 45 deg L LF, 65 deg L rot, 58 deg R rot PT-OP-L Special Tests Start: 12/27/23 08:01 Freq: Status: Active Protocol: Document 12/29/23 10:44 NM (Rec: 12/29/23 11:34 NM [id number]) Special Tests Cervical Spine Special Tests Vertebral Artery Test Results BP: 123/80 mmHg, Auscultation/ palpation @ carotid a. &heart WFL Comments intact cranial and peripheral nerve testing; no symptoms w/ positional test PT-OP-M Strength Start: 12/27/23 08:01 Freq: Status: Active Protocol: Document 01/25/24 10:44 NM (Rec: 01/25/24 10:57 NM [id number]) Cervical Spine Strength Cervical Spine Manual Muscle Testing Flexion (C1-2) 4 Good Extension 4 Good Rotation Left 4 Good Rotation Right 4- Good- Lateral Flexion Left (C3) 4- Good- Lateral Flexion Right (C3) 4- Good- Comments mild pain with resisted lateral flexion and rotation B , extension PT-OP-Q Treatments Start: 12/27/23 08:01 Freq: Status: Active Protocol: Document 01/25/24 10:44 NM (Rec: 01/25/24 10:58 NM [id number]) Therapeutic Exercises Standing Exercises rows Standing Exercise Name low rows w/ CS rotation Side bilateral Resistance lvl 1 band Reps/Minutes 10 ea direction periscapulars Standing Exercise Name W <> Y lift off Side bilateral Resistance AROM Equipment Used towel roll at head Reps/Minutes 10 Comments cued form isometrics Standing Exercise Name 1. cervical retraction w/ band , 2. retract w/ rot, 3. retract w/ LF Side bilateral Resistance lvl 1 band Equipment Used LF positioned in door Reps/Minutes 10 ea w/ 1 hold Comments moderate cues for form Manual Therapy Treatment Consent Patient gave verbal consent for manual Yes treatment Soft Tissue Mobilization cervical spine Body Location paraspinals, scalenes, UT, LS, SOR Mobilization Type Rolling,Strumming,Sustained Pressure,Other Intensity/Depth Moderate Body Position Hooklying Comments B tightness R>L. Trigger point at R UT. STM to R UT w/ FM. Manual pin and stretch to victorina UT, LS with breathwork x30s ea . Joint Mobilizations cervical spine Joint C3-C7 Direction B lateral, upglides Body Position Supine Reps/Duration 10 ea Comments grade II > III, MWM into lateral flexion and rotation. Monitored for pain. More restricted on L side PT-OP-R Modalities Start: 12/27/23 08:01 Freq: Status: Active Protocol: Document 01/11/24 10:37 NBM (Rec: 01/11/24 14:54 NBM [id number]) Hot Pack/Cold Pack Treatment Cold Pack Location cervical Patient Position Hooklying Patient Tolerance Good Comments 8 min held w/ clip PT-OP-T Assessment and Plan Start: 12/27/23 08:01 Freq: Status: Active Protocol: Document 01/25/24 10:44 NM (Rec: 01/25/24 10:57 NM [id number]) Physical Therapy Assessment Goals Five Impairment pain due to lifting Short Term Goal (STG) Pt will be educated on body mechanics during lifting in order to reduce risk of re- injury STG Duration 8 weeks Fdc Goal (LTG) If appropriate, pt will be able to demonstrate good body mechanics while lifting resistance from ground level at least 5 times and report no pain with lifting at work LTG Duration 10 weeks Four Impairment pain with sleeping Short Term Goal (STG) Pt will be educated on sleeping ergonomics in order to improve symptom management and quality of life during sleeping 01/03: Pt edu on sleeping ergonomics - HO given 01/06: Pt reports improvement with pillow supports STG Duration 3 weeks 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[employer]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 Goal (LTG) Pt will report waking due to neck pain fewer than 5/7 days of the week in order to demonstrate improved symptom management and quality of life LTG Duration 10 weeks Three Impairment pain and limitation with B cervical rotation Short Term Goal (STG) Pt will improve cervical spine AROM B to at least 60 deg in order to demonstrate increased AROM for visual scanning during driving and sitting at desk for work-related tasks 01/25/24: 65 deg L rot, 58 deg R rot STG Duration 7 weeks PROGRESSING Ye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 Goal (LTG) Pt will improve cervical spine AROM B to at least 70 deg in order to demonstrate increased AROM for visual scanning during driving and sitting at desk for work-related tasks LTG Duration 10 weeks Two Impairment pain and limitation with B cervical lateral flexion Short Term Goal (STG) Pt will improve B lateral flexion AROM to at least 35 deg in order to demonstrate increased AROM for visual scanning and better pain management during work tasks 01/25/24: 35 deg R LF, 45 deg L LF STG Duration 7 weeks MET Fdc Goal (LTG) Pt will improve B lateral flexion AROM to at least 40 deg in order to demonstrate increased AROM for visual scanning and better pain management during work tasks 01/25/24: 35 deg R, 45 deg L LTG Duration 10 weeks One Impairment not performing HEP to manage symptoms Fdc Goal (LTG) Pt will report compliance with HEP at least 3x/wk in order to maximize progression with PT and transition to maintenance program upon discharge 01/06: Pt reports unable to do ex's due to illness since 01/03 . 01/11/24: Discussion w/ pt importance of HEP to achieve personal goals w/ pt expressing understanding. Added to HEP: self-STM w/ tennis ball, wall posture w/ Lvl 1 Tb resisted scapular squeezes - HO given. Sitting ergonomics HO reviewed and given. LTG Duration 10 weeks PROGRESSING Progress Towards Goals Progress Towards Goals Progressing Toward Goals Assessment Summary Assessment Pt tolerated session well. Reports 1/10 pain at end of session, reduced from 3/10 at start of session. Pt educated on cervical retraction and postural head position for exercises and sitting position . Trialed banded isometrics and isotonics; good tolerance to progression during sessions . Cued to minimize trunk compensations as needed and to maintain correct alignment with cervical retraction. Remainder of session emphasizing periscapular activation to promote more efficient length of posterior chain and provide cervical spine with increased stability . Trialed cervical spine joint mobilizations today; more restrictions on L side than R side. Will continue to assess effect on mobility in future sessions Physical Therapy Plan Frequency and Duration Frequency of Treatment 1-2x/wk Duration of treatment (weeks) 10 Plan of Care Start Date 12/27/23 Plan of Care End Date 03/10/24 Therapeutic Interventions Therapeutic Interventions Balance Training,Gait Training ,Home Exercise Program,Joint Mobilizations,Manual Therapy, Neuromuscular Re-education, Orthotic/Prosthetic Management ,Patient/Caregiver Education, Self-Care/Home Management, Sensory Integration,Soft Tissue Mobilization,Taping, Therapeutic Activities, Therapeutic Exercises Modalities Cold Pack/Ice Massage,Electric Stimulation,Hot Packs, Ultrasound Next Visit Focus/Plan Next Note Type Treatment Note Next Visit Plan Recheck no further incidence with headaches/vision. Edu lifting mechanics with small resistance. Review cervical spine isometrics and cervical retraction with band. Progress wall and banded periscap strength (rows, low rows), etc . CS joint mobilizations as needed Manual therapy: STM and jt mobs
--- NOTE | 2024-02-08 17:21 | PT.OTN ---
Current Diagnoses Stiffness of other specified joint, not elsewhere classified (02/08/24) Cervicalgia (02/08/24) Weakness (02/08/24) Strain of muscle, fascia and tendon at neck level, subsequent encounter (02/08/24) Physical Therapy Treatment Note PT-OP-A Visit Information Start: 12/27/23 08:01 Freq: Status: Active Protocol: Document 02/08/24 14:41 NBM (Rec: 02/08/24 17:20 NBM [id number]) Out-Patient Physical Therapy Visit Information Visit Information Visit Type Treatment Note Visit Note 12 visits approved initially Assess for D/C. 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 DAVID occurred in either in October or beginning of November. She lifted the printer from a low shelf, reports hard to get into space and around the printer. She reports that when she pulled the printer, she felt pain on the back of her neck. Reports not more 1 sided. She continued with her day, reports that the following Wednesday (2 days following injury), she felt pain when she woke up. States had difficulty with moving neck. 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 She reports that she has no other limitations for her job due to her neck, states only with sitting at computer, must travel to other offices for computers. She has a raised desk (sitting, standing), monitor at eye level. States that she used to have discomfort with going to other offices. She was on light duty for work; back on full duty at work. She reports that she has pain with B rotation, support with extension. Pt reports no numbness, tingling, burning into hands. She got an injection for pain (3-4 days post injury), which has helped. She reports no hx of She does states that she has a hx of use of muscle relaxers for muscle tension from before the injury, used only for stress. Not on medication to manage pain currently after 1st week but has been prescribed naproxen. She normally gets headaches from before injury but states not worse since injury. Prior Treatments and Tests Cervical spine x-ray 11/12/23 impression: Mild degenerative disc disease at C5-C6 levels and C6-C7 levels. No cervical spine fracture or dislocation Current Functional Impairments (Reported) Functional Limitations- Work/School driving, lifting, sleeping ( wakes at night)-has to remove pillow and lie straight on mattress states can sit for a couple of hours without moving before neck hurts (2 hours) PT-OP-C Subjective Start: 12/27/23 08:01 Freq: Status: Active Protocol: Document 02/08/24 14:41 NBM (Rec: 02/08/24 17:20 NBM [id number]) OP-PT Subjective Patient Comments Patient Comments Monica reports no visual disturbances or headaches. She is feeling ready to discharge from PT. Swimming feels really good and helps the pain . Sleep is no longer an issue. Wednesday she got a new ergonomic chair at work which feels good. PT-OP-E Functional Tests Start: 12/27/23 08:01 Freq: Status: Active Protocol: Document 12/27/23 09:45 NM (Rec: 12/27/23 11:13 NM [id number]) Functional Tests Other deep neck flexor endurance test Name of Test with cervical retraction and gentle lift Score 1 second Comment painful PT-OP-F Manual Assessment Start: 12/27/23 08:01 Freq: Status: Active Protocol: Document 12/27/23 09:45 NM (Rec: 12/27/23 11:13 NM [id number]) Manual Assessments Soft Tissue Assessment Soft Tissue Mobility Assessment Tightness of cervical paraspinals, periscapulars, SCM, trapezius, levator scapula Joint Mobility Assessment Joint Mobility Assessment Hypomobility of CT junction, cervical spine with PA springing of paraspinals. Normal cervical spine motion with lateral glides- improves pain symptoms Other Manual Assessments Other Manual Assessments Cranial nerves 2-12 intact B PT-OP-G Mobility & Gait Start: 12/27/23 08:01 Freq: Status: Active Protocol: Document 12/27/23 09:45 NM (Rec: 12/27/23 11:13 NM [id number]) OP Gait Assessment Gait Gait Assistance Required: Independent Distance (Feet) 150 Assistive Devices Assistive Device None Comments Gait Comments Decreased trunk mobility PT-OP-H Neuro Start: 12/27/23 08:01 Freq: Status: Active Protocol: Document 12/27/23 09:45 NM (Rec: 12/27/23 11:13 NM [id number]) Sensation Evaluation Comments Summary Comments Cranial nerve 5, BUE equally intact to light touch sensation PT-OP-J Posture/Palpation/Skin Start: 12/27/23 08:01 Freq: Status: Active Protocol: Document 12/27/23 09:45 NM (Rec: 12/27/23 11:13 NM [id number]) Posture Evaluation Position Standing Head/C-Spine Posture C-Spine Flattened T-Spine Posture Increased Kyphosis L-Spine Posture Increased Lordosis Shoulder Posture (L) Rounded,(R) Rounded,(L) Forward,(R) Forward Scapula Posture (L) Protracted,(R) Protracted, (L) Winged,(R) Winged Pelvis Posture Anteriorly Tilted Weight Distribution Balanced Palpation Assessment Location cervical spine Palpation Details No scapular or periscapular pain; tension and tightness of trapezius, levator scapula Mild tenderness to palpation from base of occiput along cervical spinous processes, no pain with palpation of transverse processes Reports less pain with gentle lateral glides Tightness along B SCM (L>R), cervical and thoracic paraspinals, suboccipitals PT-OP-K Range of Motion Start: 12/27/23 08:01 Freq: Status: Active Protocol: Document 02/08/24 14:41 NBM (Rec: 02/08/24 17:20 NBM [id number]) Cervical Spine Range of Motion Cervical Spine Active Degrees Testing Position Sitting Rotation Left 66 Rotation Right 60 Lateral Flexion Left 48 Lateral Flexion Right 38 ROM Limitations Soft Tissue Tightness,Pain Comments 02/08/24:R-sided pain at end- range w/ rot and lateral flexion PT-OP-L Special Tests Start: 12/27/23 08:01 Freq: Status: Active Protocol: Document 12/29/23 10:44 NM (Rec: 12/29/23 11:34 NM [id number]) Special Tests Cervical Spine Special Tests Vertebral Artery Test Results BP: 123/80 mmHg, Auscultation/ palpation @ carotid a. &heart WFL Comments intact cranial and peripheral nerve testing; no symptoms w/ positional test PT-OP-M Strength Start: 12/27/23 08:01 Freq: Status: Active Protocol: Document 01/25/24 10:44 NM (Rec: 01/25/24 10:57 NM [id number]) Cervical Spine Strength Cervical Spine Manual Muscle Testing Flexion (C1-2) 4 Good Extension 4 Good Rotation Left 4 Good Rotation Right 4- Good- Lateral Flexion Left (C3) 4- Good- Lateral Flexion Right (C3) 4- Good- Comments mild pain with resisted lateral flexion and rotation B , extension PT-OP-Q Treatments Start: 12/27/23 08:01 Freq: Status: Active Protocol: Document 02/08/24 14:41 NBM (Rec: 02/08/24 17:20 NBM [id number]) Therapeutic Exercises Standing Exercises isometrics Standing Exercise Name 1. cervical retraction w/ band , 2. retract w/ rot, 3. retract w/ LF Side bilateral Resistance lvl 1 band Equipment Used LF positioned in door Reps/Minutes 10 ea w/ 1 hold Comments moderate cues for form Therapeutic Activity Therapeutic Activity lifting mechanics Name Goals 5: pain with lifting Reps/Minutes x5 ea from floor: 6.6#, 10#, 20# Comments Pt educated in proper lifting mechanics from chair, low shelf, and floor. Initial cues for hip hinge, wider ESME, and closer proximity to object. PT-OP-R Modalities Start: 12/27/23 08:01 Freq: Status: Active Protocol: Document 01/11/24 10:37 NBM (Rec: 01/11/24 14:54 NBM [id number]) Hot Pack/Cold Pack Treatment Cold Pack Location cervical Patient Position Hooklying Patient Tolerance Good Comments 8 min held w/ clip PT-OP-T Assessment and Plan Start: 12/27/23 08:01 Freq: Status: Active Protocol: Document 02/08/24 14:41 NBM (Rec: 02/08/24 17:20 NBM [id number]) Physical Therapy Assessment Goals Five Impairment pain due to lifting Short Term Goal (STG) Pt will be educated on body mechanics during lifting in order to reduce risk of re- injury STG Duration 8 weeks MET 12/10/24 Prison Goal (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 LTG Duration 10 weeks (02/08/24 partially met) Four Impairment pain with sleeping Short Term Goal (STG) Pt will be educated on sleeping ergonomics in order to improve symptom management and quality of life during sleeping 01/03: Pt edu on sleeping ergonomics - HO given 01/06: Pt reports improvement with pillow supports STG Duration 3 weeks MET Prison Goal (LTG) Pt will report waking due to neck pain fewer than 5/7 days of the week in order to demonstrate improved symptom management and quality of life LTG Duration 10 weeks (02/08/24: MET) Three Impairment pain and limitation with B cervical rotation Short Term Goal (STG) Pt will improve cervical spine AROM B to at least 60 deg in order to demonstrate increased AROM for visual scanning during driving and sitting at desk for work-related tasks 01/25/24: 65 deg L rot, 58 deg R rot 02/08/24: 66 deg L rot, 60 deg R rot w/ pain at end-range STG Duration 7 weeks PROGRESSING Prison Goal (LTG) Pt will improve cervical spine AROM B to at least 70 deg in order to demonstrate increased AROM for visual scanning during driving and sitting at desk for work-related tasks LTG Duration 10 weeks Two Impairment pain and limitation with B cervical lateral flexion Short Term Goal (STG) Pt will improve B lateral flexion AROM to at least 35 deg in order to demonstrate increased AROM for visual scanning and better pain management during work tasks 01/25/24: 35 deg R LF, 45 deg L LF STG Duration 7 weeks 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 01/11/24: Discussion w/ pt importance of HEP to achieve personal goals w/ pt expressing understanding. Added to HEP: self-STM w/ tennis ball, wall posture w/ Lvl 1 Tb resisted scapular squeezes - HO given. Sitting ergonomics HO reviewed and given. 02/08/24: Swimming and has performed once this week with intention to perform HEP 3x/ week. LTG Duration 10 weeks PROGRESSING Progress Towards Goals Progress Towards Goals Progressing Toward Goals,Goals Met Assessment Summary Assessment Monica presents reporting she is ready for discharge from PT ; expresses understanding per previous conversation with evaluating PT that she needs final appointment with PT to assess for discharge. Treatment focus on review of Goals and recent cervical isometric HEP. Pt meets lifting STG and partially meets LTG as she is instructed in proper lifting mechanics and demos good body mechanics lifting 6.6#, 10# and 20#x5 from ground level; she has not yet attempted to lift at work . She meets sleep LTG reporting pain while sleeping is no longer an issue. She requies cues for chin tuck and no cervical lateral flexion with cervical sidebending ex's , demos improved self- awareness and form with repetition. Physical Therapy Plan Frequency and Duration Frequency of Treatment 1-2x/wk Duration of treatment (weeks) 10 Plan of Care Start Date 12/27/23 Plan of Care End Date 03/10/24 Therapeutic Interventions Therapeutic Interventions Balance Training,Gait Training ,Home Exercise Program,Joint Mobilizations,Manual Therapy, Neuromuscular Re-education, Orthotic/Prosthetic Management ,Patient/Caregiver Education, Self-Care/Home Management, Sensory Integration,Soft Tissue Mobilization,Taping, Therapeutic Activities, Therapeutic Exercises Modalities Cold Pack/Ice Massage,Electric Stimulation,Hot Packs, Ultrasound Next Visit Focus/Plan Next Note Type Treatment Note Next Visit Plan Assess for D/C. POC: Recheck no further incidence with headaches/ vision. Progress wall and banded periscap strength (rows , low rows), etc. CS joint mobilizations as needed Manual therapy: STM and jt mobs
--- NOTE | 2024-02-14 10:42 | PT-OP ANOTE ---
PT called and left pt a message as she cancelled last schedule appt on 02/09 where pt was planning to discharge from PT. PT called to discuss with pt if she still felt like she was doing well enough to discharge from PT vs if needs to continue with PT. Provided pt with phone number to schedule. Recommended that pt see PT to close L&I case if appropriate
--- NOTE | 2024-03-17 10:40 | PT.OPDS ---
Current Diagnoses Stiffness of other specified joint, not elsewhere classified (02/08/24) Cervicalgia (02/08/24) Weakness (02/08/24) Strain of muscle, fascia and tendon at neck level, subsequent encounter (02/08/24) Visit Care Team Role Provider Type Zayra Schultz MD Attending Provider Physician Family Provider Primary Care Provider Referring Provider Specialty: Family Practice Obstetrics Address: [address] [place] [address], [id number] Email: [email or web address] Visit Number Visit Number 10/[id number] Discharge Summary PT-OP-B Current Condition Start: 12/27/23 08:01 Freq: Status: Active Protocol: Document 12/27/23 09:45 NM (Rec: 12/27/23 11:13 NM [id number]) Current Condition History of Current Condition Onset Date October 2023 Current Complaints pain, limited mobility History of Current Condition Pt presents with neck pain after lifting a heavy printer. DAVID occurred in either in October or beginning of November. She lifted the printer from a low shelf, reports hard to get into space and around the printer. She reports that when she pulled the printer, she felt pain on the back of her neck. Reports not more 1 sided. She continued with her day, reports that the following Wednesday (2 days following injury), she felt pain when she woke up. States had difficulty with moving neck. 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 She reports that she has no other limitations for her job due to her neck, states only with sitting at computer, must travel to other offices for computers. She has a raised desk (sitting, standing), monitor at eye level. States that she used to have discomfort with going to other offices. She was on light duty for work; back on full duty at work. She reports that she has pain with B rotation, support with extension. Pt reports no numbness, tingling, burning into hands. She got an injection for pain (3-4 days post injury), which has helped. She reports no hx of She does states that she has a hx of use of muscle relaxers for muscle tension from before the injury, used only for stress. Not on medication to manage pain currently after 1st week but has been prescribed naproxen. She normally gets headaches from before injury but states not worse since injury. Prior Treatments and Tests Cervical spine x-ray 11/12/23 impression: Mild degenerative disc disease at C5-C6 levels and C6-C7 levels. No cervical spine fracture or dislocation Current Functional Impairments (Reported) Functional Limitations- Work/School driving, lifting, sleeping ( wakes at night)-has to remove pillow and lie straight on mattress states can sit for a couple of hours without moving before neck hurts (2 hours) PT-OP-C Subjective Start: 12/27/23 08:01 Freq: Status: Active Protocol: Document 02/08/24 14:41 NBM (Rec: 02/08/24 17:20 NBM [id number]) OP-PT Subjective Patient Comments Patient Comments Monica reports no visual disturbances or headaches. She is feeling ready to discharge from PT. Swimming feels really good and helps the pain . Sleep is no longer an issue. Wednesday she got a new ergonomic chair at work which feels good. PT-OP-E Functional Tests Start: 12/27/23 08:01 Freq: Status: Active Protocol: Document 12/27/23 09:45 NM (Rec: 12/27/23 11:13 NM [id number]) Functional Tests Other deep neck flexor endurance test Name of Test with cervical retraction and gentle lift Score 1 second Comment painful PT-OP-F Manual Assessment Start: 12/27/23 08:01 Freq: Status: Active Protocol: Document 12/27/23 09:45 NM (Rec: 12/27/23 11:13 NM [id number]) Manual Assessments Soft Tissue Assessment Soft Tissue Mobility Assessment Tightness of cervical paraspinals, periscapulars, SCM, trapezius, levator scapula Joint Mobility Assessment Joint Mobility Assessment Hypomobility of CT junction, cervical spine with PA springing of paraspinals. Normal cervical spine motion with lateral glides- improves pain symptoms Other Manual Assessments Other Manual Assessments Cranial nerves 2-12 intact B PT-OP-G Mobility & Gait Start: 12/27/23 08:01 Freq: Status: Active Protocol: Document 12/27/23 09:45 NM (Rec: 12/27/23 11:13 NM [id number]) OP Gait Assessment Gait Gait Assistance Required: Independent Distance (Feet) 150 Assistive Devices Assistive Device None Comments Gait Comments Decreased trunk mobility PT-OP-H Neuro Start: 12/27/23 08:01 Freq: Status: Active Protocol: Document 12/27/23 09:45 NM (Rec: 12/27/23 11:13 NM [id number]) Sensation Evaluation Comments Summary Comments Cranial nerve 5, BUE equally intact to light touch sensation PT-OP-J Posture/Palpation/Skin Start: 12/27/23 08:01 Freq: Status: Active Protocol: Document 12/27/23 09:45 NM (Rec: 12/27/23 11:13 NM [id number]) Posture Evaluation Position Standing Head/C-Spine Posture C-Spine Flattened T-Spine Posture Increased Kyphosis L-Spine Posture Increased Lordosis Shoulder Posture (L) Rounded,(R) Rounded,(L) Forward,(R) Forward Scapula Posture (L) Protracted,(R) Protracted, (L) Winged,(R) Winged Pelvis Posture Anteriorly Tilted Weight Distribution Balanced Palpation Assessment Location cervical spine Palpation Details No scapular or periscapular pain; tension and tightness of trapezius, levator scapula Mild tenderness to palpation from base of occiput along cervical spinous processes, no pain with palpation of transverse processes Reports less pain with gentle lateral glides Tightness along B SCM (L>R), cervical and thoracic paraspinals, suboccipitals PT-OP-K Range of Motion Start: 12/27/23 08:01 Freq: Status: Active Protocol: Document 02/08/24 14:41 NBM (Rec: 02/08/24 17:20 NBM [id number]) Cervical Spine Range of Motion Cervical Spine Active Degrees Testing Position Sitting Rotation Left 66 Rotation Right 60 Lateral Flexion Left 48 Lateral Flexion Right 38 ROM Limitations Soft Tissue Tightness,Pain Comments 02/08/24:R-sided pain at end- range w/ rot and lateral flexion PT-OP-L Special Tests Start: 12/27/23 08:01 Freq: Status: Active Protocol: Document 12/29/23 10:44 NM (Rec: 12/29/23 11:34 NM [id number]) Special Tests Cervical Spine Special Tests Vertebral Artery Test Results BP: 123/80 mmHg, Auscultation/ palpation @ carotid a. &heart WFL Comments intact cranial and peripheral nerve testing; no symptoms w/ positional test PT-OP-M Strength Start: 12/27/23 08:01 Freq: Status: Active Protocol: Document 01/25/24 10:44 NM (Rec: 01/25/24 10:57 NM [id number]) Cervical Spine Strength Cervical Spine Manual Muscle Testing Flexion (C1-2) 4 Good Extension 4 Good Rotation Left 4 Good Rotation Right 4- Good- Lateral Flexion Left (C3) 4- Good- Lateral Flexion Right (C3) 4- Good- Comments mild pain with resisted lateral flexion and rotation B , extension PT-OP-T Assessment and Plan Start: 12/27/23 08:01 Freq: Status: Active Protocol: Document 03/17/24 10:35 NM (Rec: 03/17/24 10:40 NM [id number]) Physical Therapy Assessment Goals Five Impairment pain due to lifting Short Term Goal (STG) Pt will be educated on body mechanics during lifting in order to reduce risk of re- injury STG Duration 8 weeks MET 02/08/24 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 LTG Duration 10 weeks (02/08/24 partially met) Four Impairment pain with sleeping Short Term Goal (STG) Pt will be educated on sleeping ergonomics in order to improve symptom management and quality of life during sleeping 01/03: Pt edu on sleeping ergonomics - HO given 01/06: Pt reports improvement with pillow supports STG Duration 3 weeks MET Retirement Goal (LTG) Pt will report waking due to neck pain fewer than 5/7 days of the week in order to demonstrate improved symptom management and quality of life LTG Duration 10 weeks (02/08/24: MET) Three Impairment pain and limitation with B cervical rotation Short Term Goal (STG) Pt will improve cervical spine AROM B to at least 60 deg in order to demonstrate increased AROM for visual scanning during driving and sitting at desk for work-related tasks 01/25/24: 65 deg L rot, 58 deg R rot 02/08/24: 66 deg L rot, 60 deg R rot w/ pain at end-range STG Duration 7 weeks PROGRESSING Retirement Goal (LTG) Pt will improve cervical spine AROM B to at least 70 deg in order to demonstrate increased AROM for visual scanning during driving and sitting at desk for work-related tasks LTG Duration 10 weeks Two Impairment pain and limitation with B cervical lateral flexion Short Term Goal (STG) Pt will improve B lateral flexion AROM to at least 35 deg in order to demonstrate increased AROM for visual scanning and better pain management during work tasks 01/25/24: 35 deg R LF, 45 deg L LF STG Duration 7 weeks 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 01/11/24: Discussion w/ pt importance of HEP to achieve personal goals w/ pt expressing understanding. Added to HEP: self-STM w/ tennis ball, wall posture w/ Lvl 1 Tb resisted scapular squeezes - HO given. Sitting ergonomics HO reviewed and given. 02/08/24: Swimming and has performed once this week with intention to perform HEP 3x/ week. LTG Duration 10 weeks PROGRESSING Progress Towards Goals Progress Towards Goals Progressing Toward Goals Progress Comments Goals unable to be completely assessed as pt canceled last remaining appt and did not reschedule. Per last progress note and [employer] treatment note, pt was progressing toward goals but did not meet all goals Assessment Summary Assessment Pt has been seen x7 visits following evaluation in November 2023 for neck pain following injury at work while lifting. Pt demos improvements in ROM and pain management. She was partially compliant with HEP. Physical Therapy Plan Frequency and Duration Frequency of Treatment 1-2x/wk Duration of treatment (weeks) 10 Plan of Care Start Date 12/27/23 Plan of Care End Date 03/10/24 Therapeutic Interventions Therapeutic Interventions Balance Training,Gait Training ,Home Exercise Program,Joint Mobilizations,Manual Therapy, Neuromuscular Re-education, Orthotic/Prosthetic Management ,Patient/Caregiver Education, Self-Care/Home Management, Sensory Integration,Soft Tissue Mobilization,Taping, Therapeutic Activities, Therapeutic Exercises Modalities Cold Pack/Ice Massage,Electric Stimulation,Hot Packs, Ultrasound Discharge Physical Therapy Discharge Reasons No Longer Attending PT Discharge Comments Pt canceled last remaining appt scheduled for 02/10/24. PT called on 02/13 to follow up with pt as pt had been discussing discharge from PT due to progress. Pt did not reschedule appt within plan of care or follow up with clinic per PT request to determine if wanted to discharge from PT vs continue with remaining visits. Pt has not been seen in clinic since 02/07 and plan of care now . Demos progression toward goals but PT goals not met. Pt will need new referral to return to PT in future if desired. Next Visit Focus/Plan Next Note Type Discharge Summary Next Visit Plan discharge from PT
== END 2024-03-20 14:58 | disposition home or self-care (01) ==
LOC: PHYS 14:30
PROVIDERS: Family Provider Student in an Organized Health Care Education/Training Program; PCP Student in an Organized Health Care Education/Training Program; Referring Provider Student in an Organized Health Care Education/Training Program; Visit Provider Student in an Organized Health Care Education/Training Program
DX: S16.1XXD Strain of muscle, fascia and tendon at neck level, subsequent encounter (principal); R53.1 Weakness; M25.69 Stiffness of other specified joint, not elsewhere classified; M54.2 Cervicalgia
CPT/HCPCS: 97110; 97140; 97161; 97530; 97535

== ENCOUNTER → 2024-04-28 16:15 | Outpatient (CLI) | payer OTHER, SELFPAY ==
--- NOTE | 2024-04-28 16:16 | DI.MG.S_ITS ---
BILATERAL DIGITAL SCREENING MAMMOGRAM 3D/2D WITH CAD: 04/28/2024 CLINICAL: Routine screening. Family history of breast cancer. Comparison is made to exams dated: 03/19/2023 mammogram, 10/24/2020 mammogram, and 03/07/2022 mammogram - [facility]. There are scattered areas of fibroglandular density (category b / 25%-50% glandular tissue). Current study was also evaluated with a Computer Aided Detection (CAD) system. There is an oval asymmetry in the right breast middle depth central to the nipple seen on the craniocaudal view only. No other significant masses, calcifications, or other findings are seen in either breast. IMPRESSION: INCOMPLETE: NEED ADDITIONAL IMAGING EVALUATION The oval asymmetry in the right breast is indeterminate. Additional views with possible ultrasound are recommended. Based on the Tyrer Cuzick model (a risk assessment model) the patient's lifetime risk is 9.1% and her 10 year risk is 2.4%. According to the ACR, ACS, and NCCN guidelines, an annual breast MRI exam along with mammogram is recommended if the patient's lifetime risk is 20% or greater. This exam was interpreted at Station ID: [id number]. NOTE: For mammograms, a report in lay terms will be sent to the patient. Approximately 15% of breast malignancies will not be visualized mammographically. In the management of a palpable breast mass, a negative mammogram must not discourage biopsy of a clinically suspicious lesion. Electronically Signed By: Dread Marie M.D. aty/:04/28/2024 21:31:19 letter sent: Additional Imaging Needed ACR BI-RADS Category 0: Incomplete: Need Additional Imaging Evaluation
== END ==
PROVIDERS: Family Provider Student in an Organized Health Care Education/Training Program; PCP Student in an Organized Health Care Education/Training Program; Referring Provider Student in an Organized Health Care Education/Training Program; Visit Provider Student in an Organized Health Care Education/Training Program
DX: Z12.31 Encounter for screening mammogram for malignant neoplasm of breast (principal); Z80.3 Family history of malignant neoplasm of breast
CPT/HCPCS: 77063; 77067

== ENCOUNTER → 2024-05-26 15:59 | Outpatient (CLI) | payer OTHER, SELFPAY ==
[2024-05-26 17:32] LABS: Add Manual Diff / Slide Review NO; Basophils Absolute Auto 100 /uL (0-100); Eosinophils Absolute Auto 100 /uL (0-450); Eosinophils Percent Auto 1.7 % (2-4); Hematocrit 40.2 % (36-46); Hemoglobin 13.2 g/dL (12.0-16.0); Lymphocytes Absolute Auto 2100 /uL (1100-4500); Lymphocytes Percent Auto 33.9 % (25-40); Mean Corpuscular HGB Conc 32.9 % (30-36); Monocytes Absolute Auto 500 /uL (0-900); Monocytes Percent Auto 7.7 % (3-14); Neutrophils Absolute Auto 3400 /uL (1500-7000); Neutrophils Percent Auto 55.7 % (50-75); Platelet Count 213 X10^3/uL (150-400); Red Blood Cell Count 4.41 X10^6/uL (4.0-5.2); Red Cell Distribution Width 13.9 % (11.6-14.8); White Blood Cell Count 6.1 X10^3/uL (4.5-11.0)
[2024-05-26 17:52] LABS: Erythrocyte Sedimentation Rate 10 MM/HR (0-20)
[2024-05-26 17:55] LABS: Alanine Aminotransferase 12 IU/L (<35); Albumin 4.4 g/dL (3.5-5.0); Albumin Globulin Ratio 1.8 (1.0-2.8); Alkaline Phosphatase 69 U/L (38-126); Aspartate Aminotransferase 24 IU/L (14-36); BUN Creatinine Ratio 20.4 (6-22); Bilirubin Total 0.4 mg/dL (0.2-1.3); Blood Urea Nitrogen 20 mg/dL (7-17); Calcium 9.2 mg/dL (8.4-10.2); Carbon Dioxide 21 mmol/L (22-32); Chloride 107 mmol/L (98-107); Estimated Glomerular Filt Rate > 60 mL/min (>60); Globulin 2.5 g/dL (1.7-4.1); Glucose 96 mg/dL (70-100); HEMOLYSIS < 15 (0-50); Potassium 4.4 mmol/L (3.4-5.1); Sodium 138 mmol/L (137-145); Total Protein 6.9 g/dL (6.3-8.2); Uric Acid 3.4 mg/dL (2.5-6.2)
[2024-05-26 18:01] LABS: Rheumatoid Factor < 8.6 IU/mL (<12.0)
[2024-05-26 18:26] LABS: Thyroid Stimulating Hormone 0.793 uIU/mL (0.47-4.68)
[2024-05-28 08:12] LABS: CRP, High Sensitivity 1.67 mg/L (0.00-3.00)
== END ==
LOC: LAB 16:01
PROVIDERS: Family Provider Student in an Organized Health Care Education/Training Program; PCP Student in an Organized Health Care Education/Training Program; Referring Provider Ophthalmology; Visit Provider Ophthalmology
DX: H04.123 Dry eye syndrome of bilateral lacrimal glands (principal); M35.01 Sjogren syndrome with keratoconjunctivitis
CPT/HCPCS: 36415; 80053; 84443; 84550; 85025; 85651; 86038; 86140; 86235; 86430

== ENCOUNTER → 2024-05-30 13:31 | Outpatient (CLI) | payer OTHER, SELFPAY ==
--- NOTE | 2024-05-30 13:32 | DI.MG.S_ITS ---
US breast RT limited, MM diagnostic mammo unilat RT: 05/30/2024 BI-RADS: 3 CLINICAL: 53-year old female for right diagnostic mammogram and right diagnostic breast ultrasound. Tyrer-Cuzick lifetime risk of 7.2%. No personal or first-degree family history of breast cancer. Current reported family history of breast cancer: maternal aunt. PRIOR EXAMS 03/19/2023, 03/07/2022, 10/24/2020, 04/02/2017, 11/08/2015. MAMMOGRAPHY TECHNIQUE: 2D and 3D (tomosynthesis) digital mammographic views obtained, with additional images as needed for full coverage. Current study was also evaluated with a Computer Aided Detection (CAD) system. ULTRASOUND TECHNIQUE Real-time so scale imaging of the area of clinical interest was performed with image documentation. Right targeted breast ultrasound of the area of clinical interest and the axilla was performed with image documentation. DENSITY Right: B. There are scattered areas of fibroglandular density. MAMMOGRAPHY FINDINGS Right (finding-1): Central at 10:00, Middle depth: Correlating with findings on screening mammogram there is a focal asymmetry present. ULTRASOUND FINDINGS Right: Outer at 9:00, Retroareolar, measuring 0.5 x 0.3 x 0.4 cm: There are multiple complicated cysts present. Largest cyst as measured above. Smaller cysts have internal debris. Right (finding-1): Outer at 9:00, 3.0 cm from nipple, measuring 0.7 x 0.4 x 0.7 cm: Correlating with findings on mammogram there is a complicated cyst with low level echoes. Right: Axilla: No abnormal lymph nodes are seen in the axilla. No suspicious sonographic finding with typically benign findings noted. IMPRESSION: Right (Complicated Cyst): Outer at 9:00, Retroareolar, measuring 0.5 x 0.3 x 0.4 cm * Probably Benign. Right (Complicated Cyst): Outer at 9:00, 3.0 cm from nipple, measuring 0.7 x 0.4 x 0.7 cm * Probably Benign. RECOMMENDATIONS Right: Outer at 9:00, Retroareolar * Six month followup with diagnostic mammography. * Six month followup with diagnostic ultrasound. Right: Outer at 9:00, 3.0 cm from nipple * Six month followup with diagnostic mammography. * Six month followup with diagnostic ultrasound. COMMENTS: Findings and recommendations were conveyed to the patient during today's evaluation. OVERALL ASSESSMENT CATEGORY BI-RADS-3: Probably Benign. ELECTRONICALLY SIGNED: Dread Marie M.D. on 05/30/2024 at 04:31:42 PM PT Interpreting Station ID: [id number]
== END ==
PROVIDERS: Family Provider Student in an Organized Health Care Education/Training Program; PCP Student in an Organized Health Care Education/Training Program; Referring Provider Student in an Organized Health Care Education/Training Program; Visit Provider Student in an Organized Health Care Education/Training Program
DX: R92.8 Other abnormal and inconclusive findings on diagnostic imaging of breast (principal); R92.321 Mammographic fibroglandular density, right breast; N60.01 Solitary cyst of right breast; Z80.3 Family history of malignant neoplasm of breast
CPT/HCPCS: 76642; 77065; G0279

== ENCOUNTER → 2024-07-06 17:36 | Outpatient (CLI) | payer OTHER, SELFPAY ==
--- NOTE | 2024-07-06 17:38 | DI.RAD.S_ITS ---
PROCEDURE: XR TOE RT MIN 2V INDICATIONS: Right pinky toe injury TECHNIQUE: 3 views of the 5th toe(s) acquired. COMPARISON: None. FINDINGS: Bones: No fractures or dislocations. No suspicious bony lesions. Soft tissues: No suspicious soft tissue densities. IMPRESSION: No acute osseous abnormality. If pain persists with conservative management, consider repeat x-ray in 10-14 days or cross-sectional imaging. Dictated by: Jax Portillo M.D. on 07/07/2024 at 9:21 Approved by: Jax Portillo M.D. on 07/07/2024 at 9:22
== END ==
PROVIDERS: Family Provider Student in an Organized Health Care Education/Training Program; PCP Student in an Organized Health Care Education/Training Program; Referring Provider Nurse Practitioner Family; Visit Provider Nurse Practitioner Family
DX: S90.129A Contusion of unspecified lesser toe(s) without damage to nail, initial encounter (principal); X58.XXXA Exposure to other specified factors, initial encounter
CPT/HCPCS: 73660

== ENCOUNTER → 2024-07-22 11:41 | Outpatient (CLI) | payer OTHER, SELFPAY ==
[2024-07-22 12:55] LABS: Add Manual Diff / Slide Review NO; Basophils Absolute Auto 100 /uL (0-100); Basophils Percent Auto 0.9 % (0-2); Eosinophils Absolute Auto 100 /uL (0-450); Eosinophils Percent Auto 2.1 % (2-4); Hematocrit 40.4 % (36-46); Hemoglobin 13.5 g/dL (12.0-16.0); Lymphocytes Absolute Auto 2200 /uL (1100-4500); Lymphocytes Percent Auto 38.8 % (25-40); Mean Corpuscular HGB Conc 33.4 % (30-36); Mean Corpuscular Hemoglobin 30.8 PG (26-34); Mean Corpuscular Volume 92.3 fL (80-100); Monocytes Absolute Auto 400 /uL (0-900); Monocytes Percent Auto 7.1 % (3-14); Neutrophils Absolute Auto 2800 /uL (1500-7000); Neutrophils Percent Auto 51.1 % (50-75); Platelet Count 216 X10^3/uL (150-400); Red Blood Cell Count 4.38 X10^6/uL (4.0-5.2); Red Cell Distribution Width 13.3 % (11.6-14.8); White Blood Cell Count 5.6 X10^3/uL (4.5-11.0)
[2024-07-22 13:09] LABS: Alanine Aminotransferase 13 IU/L (<35); Albumin 4.3 g/dL (3.5-5.0); Albumin Globulin Ratio 1.7 (1.0-2.8); Alkaline Phosphatase 70 U/L (38-126); Aspartate Aminotransferase 25 IU/L (14-36); BUN Creatinine Ratio 21.3 (6-22); Bilirubin Total 0.4 mg/dL (0.2-1.3); Blood Urea Nitrogen 16 mg/dL (7-17); Calcium 9.3 mg/dL (8.4-10.2); Carbon Dioxide 25 mmol/L (22-32); Chloride 106 mmol/L (98-107); Estimated Glomerular Filt Rate > 60 mL/min (>60); Globulin 2.6 g/dL (1.7-4.1); Glucose 89 mg/dL (70-99); HEMOLYSIS < 15 (0-50); Potassium 4.4 mmol/L (3.4-5.1); Sodium 139 mmol/L (137-145); Total Protein 6.9 g/dL (6.3-8.2)
== END ==
PROVIDERS: Family Provider Student in an Organized Health Care Education/Training Program; PCP Student in an Organized Health Care Education/Training Program; Referring Provider Student in an Organized Health Care Education/Training Program; Visit Provider Student in an Organized Health Care Education/Training Program
DX: R10.9 Unspecified abdominal pain (principal)
CPT/HCPCS: 36415; 80053; 85025

== ENCOUNTER → 2024-08-02 07:42 | Outpatient (CLI) | payer OTHER, SELFPAY ==
--- NOTE | 2024-08-02 07:42 | DI.US.S_ITS ---
PROCEDURE: US ABDOMEN COMPLETE INDICATIONS: Abdominal pain TECHNIQUE: Real-time scanning was performed of the abdominal and retroperitoneal organs, with image documentation. COMPARISON: [facility], , US ABDOMEN COMPLETE, 12/04/2022, 10:20. FINDINGS: Liver: Liver is normal in size and homogeneous in echotexture. Small simple cysts. Gallbladder: Absent. Biliary ducts: Intrahepatic bile ducts are non-dilated. Extrahepatic bile duct caliber measures 8 mm. Normal is 6-7 mm or less in diameter, or 10 mm or less post-cholecystectomy. Pancreas: Not well evaluated due to bowel gas. Spleen: Spleen is normal in size and homogeneous in echotexture. Measures 6.1 cm. Kidneys: Kidneys are normal in size and echotexture. Right kidney measures 11 cm long; left kidney measures 10.1 cm long. No hydronephrosis or nephrolithiasis. No solid masses. Aorta: Visualized aorta is normal in caliber at less than 3 cm. Proximal aorta is not well seen. Iliacs: Proximal common iliac arteries are normal in caliber at less than 2.5 cm. IVC: Intrahepatic inferior vena cava is patent. Miscellaneous: No free abdominal fluid. IMPRESSION: Source for abdominal pain is not identified. No hydronephrosis. Post cholecystectomy. Dictated by: Rio Barber M.D. on 08/02/2024 at 17:01 Approved by: Rio Barber M.D. on 08/02/2024 at 17:04
== END ==
PROVIDERS: Family Provider Student in an Organized Health Care Education/Training Program; PCP Student in an Organized Health Care Education/Training Program; Referring Provider Student in an Organized Health Care Education/Training Program; Visit Provider Student in an Organized Health Care Education/Training Program
DX: R10.9 Unspecified abdominal pain (principal); Z90.49 Acquired absence of other specified parts of digestive tract
CPT/HCPCS: 76700

== ENCOUNTER → 2024-08-02 07:43 | Outpatient (CLI) | payer OTHER, SELFPAY ==
--- NOTE | 2024-08-02 07:43 | DI.MRI.S_ITS ---
PROCEDURE: MR HEAD/BRAIN WO CON INDICATIONS: Hx of TIA. Headaches. TECHNIQUE: Noncontrast axial T1 spin echo, axial T2 fast spin echo, sagittal and axial FLAIR, coronal T2 fast spin echo, axial gradient echo, axial diffusion and ADC through the brain. COMPARISON: None. FINDINGS: Image quality: Excellent. CSF Spaces: Basal cisterns are patent. No extra-axial fluid collections. Ventricles are normal in size and shape. Brain: No intracranial masses or hemorrhage. Baeza/white matter interface is normal. Brainstem appears normal. Diffusion-weighted images demonstrate no acute infarct. No chronic ischemic insults. Normal intravascular flow voids are present. Skull and face: Calvarium has normal marrow signal. Orbits appear normal. Sinuses: Sinuses and mastoids are clear. IMPRESSION: No acute intracranial disease process. No acute or chronic infarcts. No intracranial hemorrhage or abnormal intracranial mass. Dictated by: Lydia Solis MD, PhD on 08/02/2024 at 10:01 Approved by: Lydia Solis MD, PhD on 08/02/2024 at 10:03
== END ==
PROVIDERS: Family Provider Student in an Organized Health Care Education/Training Program; PCP Student in an Organized Health Care Education/Training Program; Referring Provider Student in an Organized Health Care Education/Training Program; Visit Provider Student in an Organized Health Care Education/Training Program
DX: G45.9 Transient cerebral ischemic attack, unspecified (principal); R10.9 Unspecified abdominal pain; K76.89 Other specified diseases of liver; Z90.49 Acquired absence of other specified parts of digestive tract
CPT/HCPCS: 70551; 76700

== ENCOUNTER 2025-01-17 14:21 | Emergency (ER) | payer OTHER, SELFPAY ==
[2025-01-17 14:33] VITALS: BP 117/67; PULSE 79; RESP 17; TEMP 36.8; O2SAT 98; BMI 27.4
--- NOTE | 2025-01-17 14:40 | EKG_ITS ---
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
--- NOTE | 2025-01-17 14:40 | DI.RAD.S_ITS ---
PROCEDURE: XR CHEST 1V INDICATIONS: Chest Pain TECHNIQUE: One view of the chest was acquired. COMPARISON: [facility], CR, XR CHEST 2V, 11/10/2019, 16:23. FINDINGS: Surgical changes and devices: None. Lungs and pleura: Lungs are clear. No pleural effusions or pneumothorax. Mediastinum: Mediastinal contours appear normal. Heart size is normal. Bones and chest wall: No suspicious bony lesions. Overlying soft tissues appear unremarkable. IMPRESSION: No acute cardiopulmonary pathology. Dictated by: Ozzie Palma M.D. on 01/17/2025 at 15:18 Approved by: Ozzie Palma M.D. on 01/17/2025 at 15:19
[2025-01-17 14:52] VITALS: PULSE 75; O2SAT 100
[2025-01-17 14:54] VITALS: BP 105/58; PULSE 71; RESP 18; O2SAT 99
[2025-01-17 15:00] LABS: Add Manual Diff / Slide Review NO; Hematocrit 42.5 % (36-46); Hemoglobin 14.3 g/dL (12.0-16.0); Lymphocytes Absolute Auto 2000 /uL (1100-4500); Mean Corpuscular HGB Conc 33.6 % (30-36); Mean Corpuscular Hemoglobin 29.7 PG (26-34); Mean Corpuscular Volume 88.6 fL (80-100); Platelet Count 216 X10^3/uL (150-400)
--- NOTE | 2025-01-17 15:02 | ED_ITS ---
HPI - Chest Pain General Chief Complaint: Chest Pain Stated Complaint: N/V, dizzy since yesterday Time Seen by Provider: 01/17/25 14:53 Source: patient Mode of arrival: Ambulatory Limitations: no limitations History of Present Illness HPI narrative: This is a 54-year-old female presents emergency department due to chest pain, shortness breath, nausea with 1 episode of vomiting onset this morning. The symptoms developed while at rest. She states that she feels weak in her left lower extremity as well as left upper extremity. No cardiac history although she has a history of 3 C sections as well as a cholecystectomy. Denies any fevers or URI symptoms. Related Data Home Medications ?Medication ?Instructions ?Recorded ?Confirmed cyclosporine 0.05 % eye drops in a drp ophthalmic (eye ) 07/06/24 01/17/25 dropperette Previous Rx's ?Medication ?Instructions ?Recorded cetirizine 10 mg tablet (Zyrtec) 10 mg PO DAILY #30 ta bs 11/10/19 hydrocortisone butyrate 0.1 % 1 applic topical BID PRN rash #45 10/21/23 topical ointment grams hydroxyzine HCl 50 mg tablet 25 mg (1/2 x 50 mg) PO BE DTIME #30 10/21/23 tabs naproxen 500 mg tablet 500 mg PO QD-BID PRN for aracelis n #30 12/20/23 tabs terbinafine HCl 250 mg tablet 250 mg PO DAILY #90 tabs 07/11/24 estradiol 0.025 mg/24 hr 1 patch transdermal 2XW #8 e a 08/08/24 semiweekly transdermal patch semaglutide (weight loss) 0.5 0.5 mg (0.5 mL) SUBCUT Q WEEK #2 mL 08/08/24 mg/0.5 mL subcutaneous pen injector (Wegovy) progesterone micronized 100 mg 100 mg PO QAM #30 caps 09/25/24 capsule nirmatrelvir 300 mg (150 mg See Rx Instructions PO .CO MPLEX 11/02/24 x2)-ritonavir 100 mg tablet,dose #30 ea pack (Paxlovid) Allergies Allergy/AdvReac Type Severity Reaction Status Date / Time atorvastatin (From Lipitor) Allergy Intermediate Headaches Verified 01/17/25 14:33 Review of Systems Review of Systems Narrative: GENERAL: Denies chills, fatigue, malaise, fever, sweats. HEENT: Denies sinus pain, ear pain, sore throat, difficulty swallowing, dizziness. RESPIRATORY: Denies dyspnea, cough, wheezing, hemoptysis, sputum. CARDIOVASCULAR: Reports chest pain, denies palpitations, orthopnea, edema, GASTROINTESTINAL: Reports nausea, vomiting, abdominal pain, denies diarrhea, constipation, melena. : Denies dysuria, frequency, incontinence, hematuria, urinary retention. MUSCULOSKELETAL: denies weakness, joint pain, or bony pain SKIN: Denies rash, skin lesions, or other NEUROLOGIC: Denies weakness, headache, numbness, change in speech, confusion, seizures, incoordination. Cranial nerves 2-12 intact. PSYCHIATRIC: No concerning psychosocial issues. 12 point review of systems is negative except for those stated above Patient History Medical History (Updated 01/17/25 @ 18:20 by Florentino Chang PA-C) ASCUS favor benign Esophagitis Back pain Postmenopausal Urinary incontinence GERD (gastroesophageal reflux disease) Left inguinal hernia Overweight Surgical History (Updated 08/13/23 @ 15:00 by Julieth Mckeon MA) [place] teeth removed (07/19/07) H/O: Status post laparoscopic cholecystectomy (~11/2015) Social History details: unknown number of children: 3 household members: children education level: college occupational status: employed seatbelt use: always alcohol intake: never substance use type: does not use Type(s) of exercise: other and yoga frequency: 3-4 times per week duration: > 90 minutes/day alcohol intake frequency: holidays/special occasions only Exam Narrative Exam Narrative: GENERAL: Well-developed patient, in mild distress. HEAD: Atraumatic. Normocephalic. EYES: Pupils equal round and reactive. Extraocular motions intact. No scleral icterus. No injection or drainage. ENT: Nose without bleeding, purulent drainage. Throat without erythema, tonsillar hypertrophy or exudate. Airway patent. NECK: Trachea midline. Non tender EXTREMITIES: No edema or joint tenderness. NEURO: AOx3. SKIN: No rash or erythema of visible areas Abdomen: Epigastric tenderness to palpation CARDIOVASCULAR: Regular rate and rhythm without murmurs, gallops, or rubs. RESPIRATORY: Clear to auscultation. Breath sounds equal bilaterally. No wheezes, rales, or rhonchi. Initial Vital Signs Initial Vital Signs: Vital Signs Temperature 98.3 F 01/17/25 14:33 Pulse Rate 79 01/17/25 14:33 Respiratory Rate 17 01/17/25 14:33 Blood Pressure 117/67 01/17/25 14:33 Pulse Oximetry 98 01/17/25 14:33 Oxygen Delivery Method Room Air 01/17/25 14:33 Course Orders Ordered: ED Orders 01/17/25 14:40 XR chest 1V Stat EKG-12 Lead Stat 01/17/25 14:54 Complete Blood Count AUTO DIFF Stat Comprehensive Metabolic Panel Stat Lipase Stat Magnesium Stat NT-proBNP (BNP-Adult 18+) Stat PTT Partial Thromboplastin Eulalio Stat Prothrombin Time INR Stat Troponin & CK Cardiac Panel Stat Discontinued Medications Aspirin (Aspirin 81 Mg Chew Tab) 324 mg PO NOW ONE Stop: 01/17/25 14:40 Vital Signs Vital signs: Vital Signs - 8 hr 01/17/25 14:33 01/17/25 14:52 01/17/25 14:54 Temperature 98.3 F Pulse Rate 79 75 Respiratory Rate 17 Blood Pressure 117/67 105/58 L Pulse Oximetry 98 100 Oxygen Delivery Method Room Air 01/17/25 14:54 Temperature Pulse Rate 71 Respiratory Rate 18 Blood Pressure Pulse Oximetry 99 Oxygen Delivery Method MDM - Chest Pain Lab Data 01/17/25 14:54 01/17/25 14:54 Labs: Lab Results 01/17/25 Range/Units 14:54 WBC 8.5 (4.5-11.0) X10^3/uL RBC 4.80 (4.0-5.2) X10^6/uL Hgb 14.3 (12.0-16.0) g/dL Hct 42.5 (36-46) % MCV 88.6 (80-100) fL MCH 29.7 (26-34) PG MCHC 33.6 (30-36) % RDW 12.8 (11.6-14.8) % Plt Count 216 (150-400) X10^3/uL Neut % (Auto) 69.4 (50-75) % Lymph % (Auto) 23.6 L (25-40) % [place] % (Auto) 6.2 (3-14) % Eos % (Auto) 0.3 L (2-4) % Baso % (Auto) 0.5 (0-2) % Neut # (Auto) 5900 (6199-4198) /uL Lymph # (Auto) 2000 (0494-4528) /uL [place] # (Auto) 500 (0-900) /uL Eos # (Auto) 0 (0-450) /uL Baso # (Auto) 0 (0-100) /uL PT 12.1 (9.4-12.5) SECONDS INR 1.1 (0.9-1.3) APTT 25 L (25.1-36.5) SECONDS Sodium 137 (137-145) mmol/L Potassium 4.1 (3.4-5.1) mmol/L Chloride 107 (98-107) mmol/L Carbon Dioxide 20 L (22-32) mmol/L BUN 20 H (7-17) mg/dL Creatinine 0.61 (0.52-1.04) mg/dL Estimated GFR > 60 (>60) mL/min BUN/Creatinine Ratio 32.8 H (6-22) Glucose 91 (70-99) mg/dL Calcium 9.0 (8.4-10.2) mg/dL Magnesium 2.1 (1.6-2.3) mg/dL Total Bilirubin 0.5 (0.2-1.3) mg/dL AST 26 (14-36) IU/L ALT 11 (<35) IU/L Alkaline Phosphatase 68 (38-126) U/L Total Creatine Kinase 101 (30-135) U/L Troponin I < 0.012 (0.01-0.034) ng/mL NT-Pro-B Natriuret Pep 67 (<125) pg/mL Total Protein 7.7 (6.3-8.2) g/dL Albumin 4.6 (3.5-5.0) g/dL Globulin 3.1 (1.7-4.1) g/dL Albumin/Globulin Ratio 1.5 (1.0-2.8) Lipase 173 (23-300) U/L Imaging Data Chest x-ray: Radiologist's Impression: [address] [address] XRay Report Signed Patient: Liliana Negro MR#: [id number] : 1970 Acct:[id number] Age/Sex: 54 / F Date of Service: 01/17/25 Loc: ED Accession Number: [id number] Procedure: XR chest 1V Ordering Provider: Roberto Ovalle MD PROCEDURE: XR CHEST 1V INDICATIONS: Chest Pain TECHNIQUE: One view of the chest was acquired. COMPARISON: [facility], CR, XR CHEST 2V, 11/10/2019, 16:23. FINDINGS: Surgical changes and devices: None. Lungs and pleura: Lungs are clear. No pleural effusions or pneumothorax. Mediastinum: Mediastinal contours appear normal. Heart size is normal. Bones and chest wall: No suspicious bony lesions. Overlying soft tissues appear unremarkable. IMPRESSION: No acute cardiopulmonary pathology. Dictated by: Ozzie Palma M.D. on 01/17/2025 at 15:18 Approved by: Ozzie Palma M.D. on 01/17/2025 at 15:19 ECG Data Interpretation: 1323 -normal sinus rhythm with a rate of 67 beats per minute. No ST elevation. No T-wave abnormality. [facility] Narrative Medical decision making narrative: ED course: 54-year-old female presenting to the emergency department due to an acute episode chest pain that has some nausea vomiting. Her symptoms have completely resolved during the course of the visit without incident. Her workup today was reassuring. CMP unremarkable, lipase normal, BNP normal, troponin normal, EKG showed no ST elevation or T-wave abnormalities, CBC unremarkable, magnesium unremarkable. Coags normal. Suspect this maybe due to her chronic esophagitis and GERD. Low concern for any cardiac abnormality at this time. Not describing a distinct shortness of breath and vitals within normal limits and low concern for PE. Lab work otherwise reassuring and no advanced imaging ordered for the epigastric tenderness. Heart score of 2 CC: Chest pain Complicating co-morbidities: History of esophagitis Data collected from: Previous notes Medical records reviewed: Patient was last seen in this emergency department 6 years ago due to an allergic reaction. At that time has a history of esophagitis, GERD, overweight, postmenopausal. History of . History of cholecystectomy. Also has a history of benign positional vertigo. History of headaches and migraines as well around her menstrual cycle. Significantly improved after meclizine she would not have any neuro abnormalities. Differential considered, but not limited to: ACS, PE, esophagitis Exam documented above, pertinent findings include: Mild tenderness to palpation of the epigastric area Lab Test results independently reviewed as above. Pertinent findings: Lab work unremarkable Imaging studies independently reviewed: Chest x-ray unremarkable Scores Used: None MIPS Elements: None Consultations: None Treatments: None Re-evaluations: Patient reports feeling better without treatment in requesting to go home Discussion: Discussed plan with the patient was comfortable with the plan Diagnosis: Esophagitis Disposition: see below, along with detailed discharge instructions that have been reviewed with patient as well as indications for ED re-evaluation and additional outpatient follow up Discharge Plan Departure Patient Disposition: Home Clinical Impression: Esophagitis Activity Restrictions/Additional Instructions: Thank you for coming to the [facility] Emergency Department today. Your workup today was very reassuring. There was no evidence of a ?heart attack? based on the EKG and lab work. Your other lab works very reassuring as well. You do have a history of esophagitis which is an inflammation of your esophagus which may be contributing to the symptoms. I recommended [id number] antacid to see if this helps. Please return to the emergency department if you develop any worsening chest pain, shortness breath, or any other concerning signs or symptoms. I hope you feel better soon. Please follow up with your primary care provider within a week if your symptoms continue. If you do not have a primary care provider please contact the [facility] Resource line at [phone]. They will ask some questions about your medical history and help you get set up with a provider in the community. Prescriptions: No Action hydrocortisone butyrate 0.1 % ointment 1 applic topical BID PRN (Reason: rash) Qty: 45 0RF hydroxyzine HCl 50 mg tablet 25 mg PO BEDTIME Qty: 30 3RF cyclosporine 0.05 % dropperette ophthalmic (eye) Patient Comments: [NO ORIGINAL SIG] Wegovy 0.5 mg/0.5 mL pen injector 0.5 mg SUBCUT QWEEK Qty: 2 0RF estradiol 0.025 mg/24 hr patch semiweekly 1 patch transdermal 2XW Qty: 8 3RF Rx Instructions: apply 1 patch for 3 days alternating with 1 patch for 4 days each week naproxen 500 mg tablet 500 mg PO QD-BID PRN (Reason: for pain) Qty: 30 0RF terbinafine HCl 250 mg tablet 250 mg PO DAILY Qty: 90 3RF progesterone micronized 100 mg capsule 100 mg PO QAM Qty: 30 3RF Paxlovid 300 mg (150 mg x 2)-100 mg tablets,dose pack See Rx Instructions PO .COMPLEX Qty: 30 0RF Rx Instructions: take TWO 150 mg tablets of nirmatrelvir with ONE 100 mg tablet of ritonavir twice daily for 5 days PO cetirizine [Zyrtec] 10 mg tablet 10 mg PO DAILY Qty: 30 2RF Referrals: Zayra Schultz MD [Primary Care Provider, Family Practice] Stand Alone Forms: Patient Portal/API
[2025-01-17 15:11] LABS: INR 1.1 (0.9-1.3); Prothrombin Time 12.1 SECONDS (9.4-12.5)
[2025-01-17 15:14] LABS: PTT Partial Thromboplastin Tim 25 SECONDS (25.1-36.5)
[2025-01-17 15:16] LABS: Alanine Aminotransferase 11 IU/L (<35); Albumin 4.6 g/dL (3.5-5.0); Albumin Globulin Ratio 1.5 (1.0-2.8); Alkaline Phosphatase 68 U/L (38-126); Blood Urea Nitrogen 20 mg/dL (7-17); Calcium 9.0 mg/dL (8.4-10.2); Carbon Dioxide 20 mmol/L (22-32); Chloride 107 mmol/L (98-107); Creatine Kinase 101 U/L (30-135); Estimated Glomerular Filt Rate > 60 mL/min (>60); Globulin 3.1 g/dL (1.7-4.1); Glucose 91 mg/dL (70-99); HEMOLYSIS < 15 (0-50); Lipase 173 U/L (23-300); Magnesium 2.1 mg/dL (1.6-2.3); Potassium 4.1 mmol/L (3.4-5.1); Sodium 137 mmol/L (137-145); Total Protein 7.7 g/dL (6.3-8.2)
[2025-01-17 15:26] LABS: NT-proBNP (BNP-Adult 18+) 67 pg/mL (<125); Troponin I < 0.012 ng/mL (0.01-0.034)
[2025-01-17 18:39] VITALS: BP 114/64; PULSE 76; RESP 18; O2SAT 76
== END 2025-01-17 18:41 | disposition home or self-care (01) ==
PROVIDERS: Emergency Medicine; Emergency Provider Physician Assistant Medical; Family Provider Student in an Organized Health Care Education/Training Program; PCP Student in an Organized Health Care Education/Training Program
DX: K20.90 Esophagitis, unspecified without bleeding (principal); R06.02 Shortness of breath; R11.2 Nausea with vomiting, unspecified
CPT/HCPCS: 36415; 71045; 80053; 82550; 83690; 83735; 83880; 84484; 85025; 85610; 85730; 93005; 93010; 99283; 99284